=== PATIENT | male | born 1945 | race Hispanic/Latino ===

== ENCOUNTER 2016-11-04 13:36 | Inpatient (IN) | payer MEDICARE ==
[2016-11-04] MEDS ORDERED: DUONEB 0.5 MG-3 MG/3 ML SOLN IH ONE ×2 (13:44→13:52)
--- NOTE | 2016-11-04 14:32 | Emergency Department Report ---
HPI - General Chief Complaint: Dyspnea/Respdistress Time Seen by Provider: 11/04/16 14:04 - HPI HPI: His is a 71-year-old male who presents to the emergency department from home with complaint of shortness of breath, productive cough, wheezing and some discomfort in the chest/rib cage. He says that it is been going on even before he was admitted here on October 20 and that they "did not fix me." He is on 4 L nasal cannula at home. His primary care doctor is Dr. Garcia, his director of outpatient services is Dr. Lundberg and he goes to [facility]. He has been using his inhaler and nebulized breathing machine without any relief. He denies any fever, nausea, vomiting or diaphoresis. He has a history of CHF, COPD, borderline diabetes and a history of coronary artery disease with a triple bypass. Patient was found to have a room air oxygen saturation of 80% through triage. ED Past Medical Hx - Past Medical History Previous Medical History?: Yes Hx Hypertension: Yes Hx Heart Attack/AMI: Yes (2005, GABGx3) Hx Congestive Heart Failure: Yes Hx Diabetes: Yes (NO LONGER TAKEN MEDICATION) Hx COPD: Yes Additional medical history: CAD - Surgical History Hx Open Heart Surgery: Yes (november 2004) - Social History Smoking Status: Never Smoker Substance Use Type: None - Medications Home Medications: Home Medications Medication Instructions Recorded Confirmed Last Taken Type Home Oxygen @ 3lpm 2.5 l INHALATION DAILY 08/28/14 11/04/16 1 Day Ago History 1 HYDROcodone/APAP 5-325 [[place] 2 each PO Q6H PRN #45 tablet 09/08/14 11/04/16 1 Day Ago Rx 5-325 mg TAB] 2 Combivent Inhaler 2 puff INHALATION PRN 12/13/15 11/04/16 1 Day Ago History 2 Morphine TAB 30 mg PO PRN 12/13/15 11/04/16 1 Day Ago History 30 ALBUTEROL NEB's [Proventil] 2.5 mg IH TID PRN 10/20/16 11/04/16 1 Day Ago History 2.5 Aspirin EC [Aspirin Enteric Coated 81 mg PO QDAY 10/20/16 11/04/16 1 Day Ago History TAB] 81 Gabapentin [Neurontin] 300 mg PO BID 10/20/16 11/04/16 1 Day Ago History 300 Levothyroxine [Synthroid] 100 mcg PO QAM 10/20/16 11/04/16 1 Day Ago History Lisinopril [Zestril] 5 mg PO QDAY 10/20/16 11/04/16 1 Day Ago History 5 Tamsulosin [Flomax] 0.4 mg PO QDAY 10/20/16 11/04/16 1 Day Ago History Tiotropium Br/Olodaterol HCl 4 gm IH DAILY 10/20/16 11/04/16 1 Day Ago History [Stiolto Respimat Inhal [place]] 2.5-2.5 Zolpidem [Ambien] 10 mg PO QHS 10/20/16 11/04/16 1 Day Ago History 10 Azithromycin [Zithromax TAB] 250 mg PO QDAY #6 tablet 10/22/16 11/04/16 Unknown Rx Prednisone [predniSONE 10 mg 10 mg PO .TAPER #1 tab.ds.pk 10/22/16 11/04/16 Unknown Rx (6-Day Pack, 21 Tabs)] ED Review of Systems ROS: Stated complaint: RIB PAIN Other details as noted in HPI Comment: All other systems reviewed and negative Constitutional: denies: chills, fever Eyes: denies: eye pain, eye discharge, vision change ENT: denies: ear pain, throat pain Respiratory: cough, shortness of breath, wheezing Cardiovascular: chest pain. denies: palpitations Gastrointestinal: denies: abdominal pain, nausea Genitourinary: denies: urgency, dysuria Musculoskeletal: denies: back pain, joint swelling, arthralgia Skin: denies: rash, lesions Neurological: denies: headache, weakness, paresthesias Physical Exam - Physical Exam Vital Signs: Vital Signs 11/04/16 11/04/16 11/04/16 13:38 13:41 13:43 Pulse Rate 80 73 Respiratory 23 29 H 29 H Rate Blood Pressure 121/60 121/60 O2 Sat by Pulse 80 L 100 99 Oximetry 11/04/16 11/04/16 13:45 13:54 Pulse Rate 75 Respiratory 23 23 Rate Blood Pressure 125/56 O2 Sat by Pulse 94 94 Oximetry Physical Exam: GENERAL: The patient is well-developed well-nourished. HEENT: Normocephalic. Atraumatic. Extraocular motions are intact. Patient has moist mucous membranes. Pupils equal reactive to light. NECK: Supple. Trachea is midline. CHEST/LUNGS: Significant rales heard both with and without auscultation. Mild wheezing throughout the chest. There is tachypnea. No accessory muscle use. There is no respiratory distress noted. HEART/CARDIOVASCULAR: Regular. There is no tachycardia. There is no gallop rub or murmur. ABDOMEN: Abdomen is soft, nontender. Patient has normal bowel sounds. There is no abdominal distention. SKIN: Skin is warm and dry. NEURO: The patient is awake, alert. The patient is cooperative. The patient has no focal neurologic deficits. The patient has normal speech. MUSCULOSKELETAL: There is no tenderness or deformity. There is no limitation range of motion. There is no evidence of acute injury. ED Course Vital Signs 11/04/16 11/04/16 11/04/16 13:38 13:41 13:43 Pulse Rate 80 73 Respiratory 23 29 H 29 H Rate Blood Pressure 121/60 121/60 O2 Sat by Pulse 80 L 100 99 Oximetry 11/04/16 11/04/16 13:45 13:54 Pulse Rate 75 Respiratory 23 23 Rate Blood Pressure 125/56 O2 Sat by Pulse 94 94 Oximetry - ABG Interpretation Ph: 7.428 PCO2: 43 PO2: 97 Bicarbonate: 28 Additional Comments: This ABG appears normal, however patient had visible hypoxia at 80% and this ABG was done after multiple hours on supplemental oxygen. - Pulse Oximetry Interpretation Digit-Finger Initial Pulse Oximetry Readin O2 Sat by Pulse Oximetry: 80 Actions Taken: other (placed on 3 L nasal cannula) ED Medical Decision Making - Lab Data Result diagrams: 11/04/16 14:09 11/04/16 14:09 - EKG Data -: EKG Interpreted by Me EKG shows normal: sinus rhythm (PVCs), axis, intervals, QRS complexes, ST-T waves (unspecific ST-T changes) Rate: normal - EKG Data When compared to previous EKG there are: previous EKG unavailable Interpretation: other (sinus rhythm with PVCs, nonspecific ST-T wave changes) - Radiology Data Radiology results: report reviewed, image reviewed interpreted by me: Chest x-ray shows some pulmonary vascular congestion but no obvious pleural effusions, no pneumonia and no pneumothorax. VQ scan of the chest is negative for pulmonary embolism - Medical Decision Making 71-year-old male returns to the emergency department with continued shortness of breath, chest discomfort and basically the same symptoms that caused him to have admission at the beginning of October. Patient presents with hypoxia with a pulse ox of 80%. He was placed on nasal cannula and his pulse ox came up to a more reasonable levels. Patient has significant coarse breath sounds heard both with and without auscultation. He was given 2 different rounds of breathing treatments, steroids, magnesium and still is having these breath sounds and tachypnea. He has an elevated BNP level of about 1000 but there is not significant pleural effusion seen on chest x-ray. D-dimer was about 1000 as well so a VQ scan was done, since the CT angiography machine was down, and the VQ scan was resulted as negative for PE. Patient will be admitted to the hospital for further evaluation, serial steroids and breathing treatments and has been accepted for admission by the hospitalist Dr light. Critical care attestation.: If time is entered above; I have spent that time in minutes in the direct care of this critically ill patient, excluding procedure time. ED Disposition Clinical Impression: COPD exacerbation, Bronchospasm, Hypoxia COPD (chronic obstructive pulmonary disease) Qualifiers: COPD type: unspecified COPD Qualified Code(s): J44.9 - Chronic obstructive pulmonary disease, unspecified Dyspnea Qualifiers: Dyspnea type: shortness of breath Qualified Code(s): R06.02 - Shortness of breath CHF (congestive heart failure) Qualifiers: Congestive heart failure type: unspecified congestive heart failure type Congestive heart failure chronicity: acute on chronic Qualified Code(s): I50.9 - Heart failure, unspecified Disposition: OP ADMITTED IP TO THIS HOSP Is pt being admited?: Yes Condition: Fair Instructions: Chronic Obstructive Pulmonary Disease (ED) Referrals: PRIMARY CARE, [Primary Care Provider] - 3-5 Days Time of Disposition: 17:06
[2016-11-04 14:33] LABS: Basophils % (Auto) 0.4 % (0.0-1.8); Eosinophils % (Auto) 0.1 % (0.0-4.3); Hematocrit 27.8 % (35.5-45.6); Hemoglobin 8.6 gm/dl (11.8-15.2); Mean Corpuscular HGB Conc 31 % (32-34); Mean Corpuscular Volume 80 fl (84-94); Platelet Count 279 K/mm3 (140-440); Red Blood Count 3.48 M/mm3 (3.65-5.03); Red Cell Distribution Width 17.9 % (13.2-15.2); White Blood Count 7.1 K/mm3 (4.5-11.0)
--- NOTE | 2016-11-04 14:46 | XRay Report ---
Single view chest: Compared to 10/20/16. History: Shortness of breath. Findings: Borderline cardiomegaly. Trachea appears to be slightly to the right of the midline without interval change. Pulmonary venous congestion with interstitial infiltrates bilaterally predominantly lower lobes without interval change. Impression: No significant interval change.
[2016-11-04 14:47] LABS: Mean Corpuscular Hemoglobin 25 pg (28-32)
[2016-11-04 14:52] LABS: Anion Gap 21 mmol/L; Blood Urea Nitrogen 17 mg/dL (9-20); Calcium 8.6 mg/dL (8.4-10.2); Carbon Dioxide 25 mmol/L (22-30); Chloride 97.1 mmol/L (98-107); Glucose 127 mg/dL (75-100); Potassium 4.4 mmol/L (3.6-5.0); Sodium 139 mmol/L (137-145)
[2016-11-04] MEDS ORDERED: MAGNESIUM SULFATE 2GM/50ML 2 GM/50 ML BAG IV ONE (14:52)
--- NOTE | 2016-11-04 16:14 | Nuclear Medicine Report ---
PERFUSION LUNG SCAN: History: Shortness of breath elevated d-dimer. Findings: After injection of Technetium 99m macroaggregated albumin gamma camera imaging of the lungs in multiple projections demonstrates normal pulmonary contours with a homogeneous distribution of activity. No focal areas of perfusion deficiency are identified. IMPRESSION: Normal study.
[2016-11-04] MEDS ORDERED: PROVENTIL IH ONE (16:24)
[2016-11-04 16:37] LABS: ISTAT Base Excess 4; ISTAT HCO3 28.5; ISTAT PCO2 43.2 (35-45); ISTAT PH 7.428 (7.35-7.45); ISTAT PO2 97 (80-105); ISTAT SO2 98; ISTAT TCO2 30
--- NOTE | 2016-11-04 16:50 | Admit Criteria Form ---
Admission Criteria Documentation: COPD Clinical Indications for Admission to Inpatient Care (Place 'X' for any and all applicable criteria): Admission is indicated for ANY ONE of the following (1)(2)(3): [ ]I. Acute exacerbation by high-risk comorbidity (e.g., pneumonia, dysrhythmia, heart failure, pleural effusion, pneumothorax) or severe underlying COPD (e.g., steroid dependent) [X ]II. Inpatient admission required rather than observation care (see Chronic Obstructive Pulmonary Disease: Observation Care) because of ANY ONE of the following: [X ]a) New or pre-existing signs or symptoms of COPD (eg, dyspnea or Tachypnea at rest or with minimal activity) that persist despite outpatient and observation care treatment [ ]b) New-onset hypoxemia (room air SaO2 less than 90%, PO2 less than 60 mm Hg (8.0 kPa)) that persists despite outpatient and observation care treatment [ ]c) Worsening of pre-existing hypoxemia (eg, new or increased requirement for supplemental oxygen to maintain oxygenation at baseline level) that persists despite outpatient and observation care treatment, with oxygen treatment needs performable only in acute inpatient setting [ ]d) Hypercarbia (PCO2 greater than 40 mm Hg (5.3 kPa))-induced respiratory acidosis (pH less than 7.35) that persists despite outpatient and observation care treatment [ ]e) Supplemental oxygen or respiratory treatments for over 24 hours that are performable only in acute inpatient setting [ ]f) Chest tube placement with active evacuation (e.g., suction, drainage) (5) [ ]g) Other condition, treatment or monitoring requiring inpatient admission [ ]III. Planned invasive surgical or diagnostic procedures requiring acute- care hospitalization [ X]IV. Acute respiratory failure (e.g., uncompensated hypercarbia, severe hypoxemia) [ ]V. Severe comorbid condition (e.g., severe steroid myopathy, acute vertebral fracture) that has acutely worsened pulmonary function [ ]. Confusion state, lethargy, obtundation, stupor or coma Extended stay beyond goal length of stay may be needed for (31)(32): [ ]a ) Respiratory Failure. [ ]b) Severe or persisting hypoxemia or hypercarbia [ ]c) Severe or persistent dyspnea [ ]d) Comorbidities (e.g. chronic heart failure, atrial fibrillation with rapid response, pneumonia) [ ]e) Malnutrition The original [facility] content created by [facility] has been revised. The portions of the content which have been revised are identified through the use of italic text or in bold, and [facility] has neither reviewed nor approved the modified material. All other unmodified content is copyright [facility]. Please see references footnoted in the original [facility] edition 2016 Admission Criteria Met: Yes
[2016-11-04] MEDS ORDERED: PERCOCET 5/325 PO ONE (17:34)
[2016-11-04] MEDS ORDERED: PERCOCET 5/325 ONE (17:35)
[2016-11-04] MEDS ORDERED: TORADOL IV ONE (19:23)
[2016-11-04] MEDS ORDERED: MORPHINE IV ONE (19:23)
[2016-11-04] MEDS ORDERED: MORPHINE 30 MG PO PRN (19:28)
[2016-11-04] MEDS ORDERED: PROVENTIL IH PRN ×2 (19:28→20:06)
[2016-11-04] MEDS ORDERED: COMBIVENT INHALATION SCH (19:30)
[2016-11-04] MEDS ORDERED: LEVAQUIN 750MG/150ML 750 MG/150 ML BAG IV SCH (20:00)
--- NOTE | 2016-11-04 20:05 | History and Physical Report ---
History of Present Illness Date of examination: 11/04/16 Date of admission: 11/04/16 17:06 Chief complaint: Rib cage pain, cough History of present illness: 71-year-old male with medical history significant for COPD, [place] status post CABG, CHF presented to the emergency department complaining of rib cage pain, cough productive of greenish sputum, wheezing, generalized pain. Patient states he was admitted on October 20 and was discharged but he said his problem is not fixed. Patient was sent on 4 L of home oxygen. Patient's main question is pain medication. The patient can maintain his oxygen saturation was 80% on room air. The emergency department chest x-ray was done and showed pulmonary congestion and interstitial infiltrates. REVIEW OF SYSTEMS: GENERAL: no weight change, no fatigue, no fever HEAD: no head ache EYES: no blurry vision, no acute visual loss EARS: no hearing loss, no discharge, no earache NOSE: no stuffiness, no sneezing, no discharge MOUTH, THROAT AND NECK: no bleeding gums, no sore throat, no swollen neck CARDIAC: no palpitations, no dyspnea on exertion, no orthopnea, no PND, no edema , no chest pain RESPIRATORY: + shortness of breath, no wheeze, +_cough, + sputum, no hemoptysis , no asthma GI: no decreased appetite, no nausea, no vomiting, no dysphagia, no diarrhea, no constipation, no abdominal pain URINARY: no change in frequency, no urgency, no polyuria, no hematuria, no incontinence MUSCULOSKELETAL: no muscle weakness, + pain, no joint stiffness NEUROLOGIC: no loss of sensation/numbness, no tingling, no tremors, no weakness/ paralysis HEMATOLOGIC: no anemia, no easy bruising SKIN: no rashes ENDOCRINE: no heat/cold intolerance, no polyuria, no polydipsia, no thyroid problems, no diabetes PSYCHIATRIC: no anxiety, no depression, no suicidal ideations Past History Past Medical History: CAD, COPD, hypertension Past Surgical History: CABG Social history: full code. denies: smoking, alcohol abuse, prescription drug abuse, IV drug use Family history: no significant family history Medications and Allergies Allergies Allergy/AdvReac Type Severity Reaction Status Date / Time Cephalosporins Allergy Anaphylaxis Verified 08/28/14 14:56 Penicillins Allergy Unknown Verified 10/20/16 16:37 Home Medications Medication Instructions Recorded Confirmed Last Taken Type Home Oxygen @ 3lpm 2.5 l INHALATION DAILY 08/28/14 11/04/16 1 Day Ago History 1 HYDROcodone/APAP 5-325 [[place] 2 each PO Q6H PRN #45 tablet 09/08/14 11/04/16 1 Day Ago Rx 5-325 mg TAB] 2 Combivent Inhaler 2 puff INHALATION PRN 12/13/15 11/04/16 1 Day Ago History 2 Morphine TAB 30 mg PO PRN 12/13/15 11/04/16 1 Day Ago History 30 ALBUTEROL NEB's [Proventil] 2.5 mg IH TID PRN 10/20/16 11/04/16 1 Day Ago History 2.5 Aspirin EC [Aspirin Enteric Coated 81 mg PO QDAY 10/20/16 11/04/16 1 Day Ago History TAB] 81 Gabapentin [Neurontin] 300 mg PO BID 10/20/16 11/04/16 1 Day Ago History 300 Levothyroxine [Synthroid] 100 mcg PO QAM 10/20/16 11/04/16 1 Day Ago History Lisinopril [Zestril] 5 mg PO QDAY 10/20/16 11/04/16 1 Day Ago History 5 Tamsulosin [Flomax] 0.4 mg PO QDAY 10/20/16 11/04/16 1 Day Ago History Tiotropium Br/Olodaterol HCl 4 gm IH DAILY 10/20/16 11/04/16 1 Day Ago History [Stiolto Respimat Inhal [place]] 2.5-2.5 Zolpidem [Ambien] 10 mg PO QHS 10/20/16 11/04/16 1 Day Ago History 10 Azithromycin [Zithromax TAB] 250 mg PO QDAY #6 tablet 10/22/16 11/04/16 Unknown Rx Prednisone [predniSONE 10 mg 10 mg PO .TAPER #1 tab.ds.pk 10/22/16 11/04/16 Unknown Rx (6-Day Pack, 21 Tabs)] Active Meds: Active Medications Acetaminophen/Hydrocodone Bitart ([place] 5/325) 2 each PO Q6H PRN PRN Reason: Moderate Pain Albuterol (Proventil) 2.5 mg IH TIDRT PRN PRN Reason: Wheezing Aspirin (Halfprin Ec) 81 mg PO QDAY LUIS CARLOS Gabapentin (Neurontin) 300 mg PO BID LUIS CARLOS Heparin Sodium (Porcine) (Heparin) 5,000 unit SUB-Q Q8HR [facility] Levofloxacin/Dextrose (Levaquin 750mg/150ml) 750 mg in 150 mls @ 100 mls/hr IV Q24H LUIS CARLOS PRN Reason: Protocol Levothyroxine Sodium (Synthroid) 100 mcg PO DAILY@0600 [facility] Lisinopril (Zestril) 5 mg PO QDAY [facility] Methylprednisolone Sodium Succinate (Solu-Medrol) 80 mg IV Q8HR [facility] Miscellaneous Medication (Combivent Inhaler) 2 puff INHALATION PRN [facility] Miscellaneous Medication (Morphine Tab) 30 mg PO BID PRN PRN Reason: Pain Miscellaneous Medication (Tiotropium Br/Olodaterol Hcl [Stiolto Respimat Inhal [place]]) 4 gm IH DAILY [facility] Tamsulosin HCl (Flomax) 0.4 mg PO QHS [facility]IS CARLOS Zolpidem Tartrate (Ambien) 10 mg PO QHS [facility] Exam - Physical Exam Narrative exam: Not in cardiopulmonary distress. The patient appeared well nourished and normally developed. Vital signs as documented. Head exam is unremarkable. No scleral icterus . Neck is without jugular venous distension, thyromegaly, or carotid bruits. Lungs wheezing and ceptations all over the chest. Cardiac exam reveals regular rate and Rhythm. First and second heart sounds normal. No murmurs, rubs or gallops. Abdominal exam reveals normal bowel sounds, no masses, no organomegaly and no aortic enlargement. Extremities are nonedematous and both femoral and pedal pulses are normal. [place]: Alert and oriented 3. No focal weakness. - Constitutional Vitals: Temp Pulse Resp BP Pulse Ox 75 21 141/72 89 11/04/16 19:31 11/04/16 19:31 11/04/16 19:31 11/04/16 19:31 Results - Labs CBC & Chem 7: 11/04/16 14:09 11/04/16 14:09 Labs: Laboratory Last Values WBC 7.1 K/mm3 (4.5-11.0) 11/04/16 14:09 RBC 3.48 M/mm3 (3.65-5.03) L 11/04/16 14:09 Hgb 8.6 gm/dl (11.8-15.2) L 11/04/16 14:09 Hct 27.8 % (35.5-45.6) L 11/04/16 14:09 MCV 80 fl (84-94) L 11/04/16 14:09 MCH 25 pg (28-32) L 11/04/16 14:09 MCHC 31 % (32-34) L 11/04/16 14:09 RDW 17.9 % (13.2-15.2) H 11/04/16 14:09 Plt Count 279 K/mm3 (140-440) 11/04/16 14:09 Lymph % (Auto) 14.6 % (13.4-35.0) 11/04/16 14:09 [place] % (Auto) 10.2 % (0.0-7.3) H 11/04/16 14:09 Eos % (Auto) 0.1 % (0.0-4.3) 11/04/16 14:09 Baso % (Auto) 0.4 % (0.0-1.8) 11/04/16 14:09 Lymph # 1.0 K/mm3 (1.2-5.4) L 11/04/16 14:09 [place] # 0.7 K/mm3 (0.0-0.8) 11/04/16 14:09 Eos # 0.0 K/mm3 (0.0-0.4) 11/04/16 14:09 Baso # 0.0 K/mm3 (0.0-0.1) 11/04/16 14:09 Seg Neutrophils % 74.7 % (40.0-70.0) H 11/04/16 14:09 Seg Neutrophils # 5.3 K/mm3 (1.8-7.7) 11/04/16 14:09 D-Dimer 1071.24 ng/mlDDU (0-234) H 11/04/16 14:09 POC ABG pH 7.428 (7.35-7.45) 11/04/16 16:27 POC ABG pCO2 43.2 (35-45) 11/04/16 16:27 POC ABG pO2 97 (80-105) 11/04/16 16:27 POC ABG HCO3 28.5 11/04/16 16:27 POC ABG Total CO2 30 11/04/16 16:27 POC ABG O2 Sat 98 11/04/16 16:27 POC ABG Base Excess 4 11/04/16 16:27 FiO2 40 % 11/04/16 16:27 Sodium 139 mmol/L (137-145) 11/04/16 14:09 Potassium 4.4 mmol/L (3.6-5.0) 11/04/16 14:09 Chloride 97.1 mmol/L (98-107) L 11/04/16 14:09 Carbon Dioxide 25 mmol/L (22-30) 11/04/16 14:09 Anion Gap 21 mmol/L 11/04/16 14:09 BUN 17 mg/dL (9-20) 11/04/16 14:09 Creatinine 1.0 mg/dL (0.8-1.5) 11/04/16 14:09 Estimated GFR > 60 ml/min 11/04/16 14:09 BUN/Creatinine Ratio 17.00 % 11/04/16 14:09 Glucose 127 mg/dL (75-100) H 11/04/16 14:09 Calcium 8.6 mg/dL (8.4-10.2) 11/04/16 14:09 Troponin T < 0.010 ng/mL (0.00-0.029) 11/04/16 14:09 NT-Pro-B Natriuret Pep 1670 pg/mL (0-900) H 11/04/16 14:09 Assessment and Plan Assessment and plan: COPD exacerbation Pneumonia CAD Hypertension Hypothyroidism Admit to medical floor IV Solu-Medrol, nebulizer treatment, IV Levaquin Sliding scale insulin Continue appropriate medications DT prophylaxis Advance Directives: Yes VTE prophylaxis?: Chemical Plan of care discussed with patient/family: Yes
[2016-11-04] MEDS ORDERED: D50W (25GM) IV PRN (20:09)
[2016-11-04] MEDS: HEPARIN SUB-Q SCH (22:19)
[2016-11-04] MEDS: NEURONTIN PO SCH (22:19)
[2016-11-04] MEDS: FLOMAX PO SCH (22:30)
[2016-11-04] MEDS: AMBIEN PO SCH (22:30)
[2016-11-04] MEDS: NOVOLOG SUB-Q SCH (23:00)
[2016-11-05] MEDS ORDERED: DUONEB 0.5 MG-3 MG/3 ML SOLN IH SCH (02:00)
[2016-11-05] MEDS: HEPARIN SUB-Q SCH ×3 (05:56→22:11)
[2016-11-05] MEDS: SYNTHROID PO SCH (05:56)
[2016-11-05] MEDS: DUONEB 0.5 MG-3 MG/3 ML SOLN IH SCH ×3 (09:04→20:10)
--- NOTE | 2016-11-05 09:35 | Progress Note ---
Assessment and Plan Assessment and plan: Acute hypoxic respiratory failure. Patient was noted to have saturations in the 80s upon admission to the emergency room. Continue O2 for supportive care. Acute COPD exacerbation. Continue COPD pathway. IV steroids, nebulizer treatment and IV antibiotics. Community-acquired pneumonia. Continue pneumonia pathway and antibiotics. Follow-up chest x-ray. Acute CHF exacerbation. Etiology of systolic versus diastolic unknown. Check echocardiogram. Patient was mildly elevated BNP on admission. Continue lisinopril. Add low-dose Lasix daily. Consider cardiology consultation. Hypertension. Resume antihypertensives medications. Hypothyroidism. Check TSH. Continue medications. Coronary artery disease. History Interval history: 71-year-old male with medical history significant for COPD, [place] status post CABG and CHF admitted for COPD exac and acute hypoxic respiratory failure. Patient denies any chest pain or shortness of breath currently. Hospitalist Physical - Constitutional Vitals: Temp Pulse Resp BP Pulse Ox 97.8 F 62 20 130/57 99 11/05/16 05:00 11/05/16 09:15 11/05/16 09:15 11/05/16 05:00 11/05/16 05:00 General appearance: Present: no acute distress, well-nourished - EENT Eyes: Present: PERRL, EOM intact ENT: hearing intact, clear oral mucosa, dentition normal - Neck Neck: Present: supple, normal ROM - Respiratory Respiratory effort: normal Respiratory: bilateral: diminished, wheezing - Cardiovascular Rhythm: regular Heart Sounds: Present: S1 & S2. Absent: gallop, rub - Extremities Extremities: no ischemia, No edema, Full ROM - Abdominal General gastrointestinal: soft, non-tender, non-distended, normal bowel sounds - Integumentary Integumentary: Present: clear, warm, dry - Neurologic Neurologic: CNII-XII intact, moves all extremities Results - Labs CBC & Chem 7: 11/04/16 14:09 11/04/16 14:09 Labs: Laboratory Last Values WBC 7.1 K/mm3 (4.5-11.0) 11/04/16 14:09 RBC 3.48 M/mm3 (3.65-5.03) L 11/04/16 14:09 Hgb 8.6 gm/dl (11.8-15.2) L 11/04/16 14:09 Hct 27.8 % (35.5-45.6) L 11/04/16 14:09 MCV 80 fl (84-94) L 11/04/16 14:09 MCH 25 pg (28-32) L 11/04/16 14:09 MCHC 31 % (32-34) L 11/04/16 14:09 RDW 17.9 % (13.2-15.2) H 11/04/16 14:09 Plt Count 279 K/mm3 (140-440) 11/04/16 14:09 Lymph % (Auto) 14.6 % (13.4-35.0) 11/04/16 14:09 [place] % (Auto) 10.2 % (0.0-7.3) H 11/04/16 14:09 Eos % (Auto) 0.1 % (0.0-4.3) 11/04/16 14:09 Baso % (Auto) 0.4 % (0.0-1.8) 11/04/16 14:09 Lymph # 1.0 K/mm3 (1.2-5.4) L 11/04/16 14:09 [place] # 0.7 K/mm3 (0.0-0.8) 11/04/16 14:09 Eos # 0.0 K/mm3 (0.0-0.4) 11/04/16 14:09 Baso # 0.0 K/mm3 (0.0-0.1) 11/04/16 14:09 Seg Neutrophils % 74.7 % (40.0-70.0) H 11/04/16 14:09 Seg Neutrophils # 5.3 K/mm3 (1.8-7.7) 11/04/16 14:09 D-Dimer 1071.24 ng/mlDDU (0-234) H 11/04/16 14:09 POC ABG pH 7.428 (7.35-7.45) 11/04/16 16:27 POC ABG pCO2 43.2 (35-45) 11/04/16 16:27 POC ABG pO2 97 (80-105) 11/04/16 16:27 POC ABG HCO3 28.5 11/04/16 16:27 POC ABG Total CO2 30 11/04/16 16:27 POC ABG O2 Sat 98 11/04/16 16:27 POC ABG Base Excess 4 11/04/16 16:27 FiO2 40 % 11/04/16 16:27 Sodium 139 mmol/L (137-145) 11/04/16 14:09 Potassium 4.4 mmol/L (3.6-5.0) 11/04/16 14:09 Chloride 97.1 mmol/L (98-107) L 11/04/16 14:09 Carbon Dioxide 25 mmol/L (22-30) 11/04/16 14:09 Anion Gap 21 mmol/L 11/04/16 14:09 BUN 17 mg/dL (9-20) 11/04/16 14:09 Creatinine 1.0 mg/dL (0.8-1.5) 11/04/16 14:09 Estimated GFR > 60 ml/min 11/04/16 14:09 BUN/Creatinine Ratio 17.00 % 11/04/16 14:09 Glucose 127 mg/dL (75-100) H 11/04/16 14:09 POC Glucose 153 (70-105) H 11/04/16 22:38 Calcium 8.6 mg/dL (8.4-10.2) 11/04/16 14:09 Troponin T < 0.010 ng/mL (0.00-0.029) 11/04/16 14:09 NT-Pro-B Natriuret Pep 1670 pg/mL (0-900) H 11/04/16 14:09
[2016-11-05] MEDS ORDERED: ZITHROMAX PO SCH (10:00)
[2016-11-05] MEDS ORDERED: NON-FORMULARY (Tiotropium Br/Olodaterol Hcl [Stiolto Respimat Inhal Spray] 4 GM) IH SCH (10:00)
[2016-11-05] MEDS: ZESTRIL PO SCH (10:01)
[2016-11-05] MEDS: HALFPRIN EC PO SCH (10:02)
[2016-11-05] MEDS: NEURONTIN PO SCH ×2 (10:02→22:11)
[2016-11-05] MEDS ORDERED: COREG PO SCH (11:00)
[2016-11-05] MEDS ORDERED: LASIX IV SCH (11:00)
[2016-11-05] MEDS: NORCO 5/325 PO PRN ×2 (11:10→18:38)
--- NOTE | 2016-11-05 12:50 | Consultation ---
History of Present Illness Consult date: 11/05/16 Requesting physician: ORLIN GARCIA Consult reason: congestive heart failure History of present illness: The pt is a 69-year-old pleasant white gentleman with a past medical history significant for hypertension, DM, known coronary artery disease history of CABG in the past with (2004), History of chronic heavy smoking in the past known to have COPD and chronic respiratory failure on home O2 (medical technologist prn is Dr. Rahman), PVD, asymptomatic sinus bradycardia. He is followed in our office by Dr. Alfaro. He presented with c/o left-sided rib pain, increased SOB, orthopnea and productive cough with green sputum x 4 weeks. He denies any chest pain, n/v , diaphoresis, dizziness, or syncope. He denies any recent fall or trauma to ribs. Admission CXR revealed pulmonary venous congestion with interstitial infiltrates bilaterally; pro-BNP 1670. DDimer was elevated; V/Q scan normal. His echocardiogram done in the office on 02/29/2016 revealed mild to moderate LVH , EF 50 - 55%, impaired relaxation, no pulmonary HTN. His Lexiscan stress thallium test done on 02/29/2016 revealed no evidence of ischemia. Past History Past Medical History: CAD, COPD, hypertension Past Surgical History: CABG Social history: full code. denies: smoking, alcohol abuse, prescription drug abuse, IV drug use Family history: no significant family history Medications and Allergies Allergies Allergy/AdvReac Type Severity Reaction Status Date / Time Cephalosporins Allergy Anaphylaxis Verified 08/28/14 14:56 Penicillins Allergy Unknown Verified 10/20/16 16:37 Home Medications Medication Instructions Recorded Confirmed Last Taken Type Home Oxygen @ 3lpm 2.5 l INHALATION DAILY 08/28/14 11/04/16 1 Day Ago History 1 HYDROcodone/APAP 5-325 [[place] 2 each PO Q6H PRN #45 tablet 09/08/14 11/04/16 1 Day Ago Rx 5-325 mg TAB] 2 Combivent Inhaler 2 puff INHALATION PRN 12/13/15 11/04/16 1 Day Ago History 2 Morphine TAB 30 mg PO PRN 12/13/15 11/04/16 1 Day Ago History 30 ALBUTEROL NEB's [Proventil] 2.5 mg IH TID PRN 10/20/16 11/04/16 1 Day Ago History 2.5 Aspirin EC [Aspirin Enteric Coated 81 mg PO QDAY 10/20/16 11/04/16 1 Day Ago History TAB] 81 Gabapentin [Neurontin] 300 mg PO BID 10/20/16 11/04/16 1 Day Ago History 300 Levothyroxine [Synthroid] 100 mcg PO QAM 10/20/16 11/04/16 1 Day Ago History Lisinopril [Zestril] 5 mg PO QDAY 10/20/16 11/04/16 1 Day Ago History 5 Tamsulosin [Flomax] 0.4 mg PO QDAY 10/20/16 11/04/16 1 Day Ago History Tiotropium Br/Olodaterol HCl 4 gm IH DAILY 10/20/16 11/04/16 1 Day Ago History [Stiolto Respimat Inhal [place]] 2.5-2.5 Zolpidem [Ambien] 10 mg PO QHS 10/20/16 11/04/16 1 Day Ago History 10 Azithromycin [Zithromax TAB] 250 mg PO QDAY #6 tablet 10/22/16 11/04/16 Unknown Rx Prednisone [predniSONE 10 mg 10 mg PO .TAPER #1 tab.ds.pk 10/22/16 11/04/16 Unknown Rx (6-Day Pack, 21 Tabs)] Active Meds: Active Medications Acetaminophen/Hydrocodone Bitart ([place] 5/325) 2 each PO Q6H PRN PRN Reason: Moderate Pain Last Admin: 11/05/16 11:10 Dose: 2 each Albuterol (Proventil) 2.5 mg IH Q3HRT PRN PRN Reason: Shortness Of Breath Albuterol/Ipratropium (Duoneb 0.5 Mg-3 Mg/3 Ml Soln) 1 ampul IH TIDRT [facility] Last Admin: 11/05/16 09:04 Dose: 1 ampul Aspirin (Halfprin Ec) 81 mg PO QDAY [facility] Last Admin: 11/05/16 10:02 Dose: 81 mg Carvedilol (Coreg) 3.125 mg PO BID [facility] Last Admin: 11/05/16 11:53 Dose: 3.125 mg Dextrose (D50w (25gm)) 50 ml IV PRN PRN PRN Reason: Hypoglycemia Furosemide (Lasix) 20 mg IV QDAY [facility] Last Admin: 11/05/16 11:53 Dose: 20 mg Gabapentin (Neurontin) 300 mg PO BID [facility] Last Admin: 11/05/16 10:02 Dose: 300 mg Heparin Sodium (Porcine) (Heparin) 5,000 unit SUB-Q Q8HR [facility] Last Admin: 11/05/16 05:56 Dose: 5,000 unit Levofloxacin/Dextrose (Levaquin 750mg/150ml) 750 mg in 150 mls @ 100 mls/hr IV Q24H [facility] PRN Reason: Protocol Last Admin: 11/04/16 20:18 Dose: 100 mls/hr Insulin Aspart (Novolog) 0 units SUB-Q QHS [facility] PRN Reason: Protocol Last Admin: 11/04/16 23:00 Dose: Not Given Levothyroxine Sodium (Synthroid) 100 mcg PO DAILY@0600 [facility] Last Admin: 11/05/16 05:56 Dose: 100 mcg Lisinopril (Zestril) 5 mg PO QDAY [facility] Last Admin: 11/05/16 10:01 Dose: 5 mg Methylprednisolone Sodium Succinate (Solu-Medrol) 80 mg IV Q8HR [facility] Last Admin: 11/05/16 05:56 Dose: 80 mg Miscellaneous Medication (Tiotropium Br/Olodaterol Hcl [Stiolto Respimat Inhal [place]]) 4 gm IH DAILY [facility] Morphine Sulfate (Morphine) 30 mg PO BID PRN PRN Reason: Pain , Severe (7-10) Tamsulosin HCl (Flomax) 0.4 mg PO QHS [facility] Last Admin: 11/04/16 22:30 Dose: 0.4 mg Zolpidem Tartrate (Ambien) 10 mg PO QHS [facility] Last Admin: 11/04/16 22:30 Dose: 10 mg Review of Systems Constitutional: fever, chills, no weight loss, no weight gain, no sweats Ears, nose, mouth and throat: no ear pain, no nose pain, no sinus pressure, no sinus pain Cardiovascular: orthopnea, shortness of breath, dyspnea on exertion, no chest pain, no palpitations, no rapid/irregular heart beat, no edema, no syncope, no lightheadedness, no leg edema Respiratory: cough with sputum, shortness of breath, dyspnea on exertion, congestion, wheezing, pain on inspiration (d/t left rib pain ) Gastrointestinal: no abdominal pain, no nausea, no vomiting, no diarrhea, no constipation, no change in bowel habits Genitourinary Male: no dysuria, no hematuria, no flank pain, no discharge, no urinary frequency, no urinary hesitancy Musculoskeletal: other (left rib pain ), no neck stiffness, no neck pain, no shooting arm pain, no arm numbness/tingling, no low back pain, no shooting leg pain, no leg numbness/tingling, no redness of joints Integumentary: no rash, no pruritis, no redness, no sores, no wounds Neurological: no paralysis, no weakness, no parathesias, no numbness, no tingling, no seizures, no syncope Psychiatric: no anxiety Endocrine: no cold intolerance, no heat intolerance Hematologic/Lymphatic: no easy bruising, no easy bleeding, no lymphadenopathy Allergic/Immunologic: no urticaria Physical Examination Vital Signs Resp Pulse Ox 23 80 L 11/04/16 13:38 11/04/16 13:38 General appearance: no acute distress HEENT: Positive: PERRL, Normocephaly, Mucus Membranes Moist Neck: Positive: neck supple, trachea midline Cardiac: Positive: Reg Rate and Rhythm, S1/S2 Lungs: Positive: Decreased Breath Sounds, Oxygen. Negative: Rales, Wheezes Neuro: Positive: Grossly Intact, Cranial Nerve 2-12 Intact Abdomen: Positive: Unremarkable, Soft, Active Bowel Sounds. Negative: Tender Skin: Positive: Clear. Negative: Rash, Wound Musculoskeletal: No Fluid Collection, No Pain, Normal Range of Motion Extremities: Present: upper extr. pulses, lower extr. pulses. Absent: edema Results 11/04/16 14:09 11/04/16 14:09 - Imaging and Cardiology Echo: report reviewed EKG: report reviewed, image reviewed EKG interpretations - Telemetry EKG Rhythm: Sinus Rhythm - EKG Sinus rhythms and dysrhythmias: sinus rhythm Assessment and Plan Assessment: COPD exacerbation / ? PNA Acute diastolic HF Acute on chronic respiratory failure Left rib pain Elevated DDimer - V/Q scan negative for PE. CAD, s/p CABG HTN DM PVD Anemia Plan: Obtain left rib XR. PRN analgesia per primary. No indication for any cardiac testing at this time as pt recently had echo and stress in our office in 02/2016. Increase IV lasix to 40mg daily. D/c coreg and resume home Toprol XL (beta selective), 50mg daily. Await pulmonary consultation. Assessment and plan reviewed with pt at bedside. The patient has been seen in conjunction with Dr. Mckinley who agrees with the assessment and plan of care.
[2016-11-05] MEDS: MORPHINE PO PRN (13:52)
--- NOTE | 2016-11-05 15:23 | XRay Report ---
LEFT RIBS, 3 VIEWS: History: Left rib pain. Routine views of the rib cage demonstrate normal mineralization with no significant contour abnormalities, fractures or destructive lesions. Osteopenia is noted. IMPRESSION: No left rib deformity is detected on x-ray. Osteopenia.
[2016-11-05] MEDS ORDERED: VANCOMYCIN/NS 1 GM/250 ML 1 GM/250 ML BAG IV ONE (16:47)
--- NOTE | 2016-11-05 16:53 | Consultation ---
History of Present Illness Consult date: 11/05/16 Requesting physician: ORLIN GARCIA Reason for consult: COPD, pneumonia History of present illness: 71 y/o male with known COPD on Stiolto and chronic respiratory failure on 3 liters at home admitted with worsening shortness of breath, rib pain and overall malaise. CXR shows this bilateral interstitial type patter with a dense right lower lobe infiltrate. Per patient has not felt well since the 8th of this month when he was first admitted and feels he was discharged to soon. Remainder of the review is positive for cough productive of thick green sputum that is sometimes liquid. No fever. No sick contacts. No recent travel and no changes in meds. Has not been in the hospital, outside of this month in the last 90 days. Has a large amount of specimen at the bedside to send to the lab. Past History Past Medical History: CAD, COPD, hypertension Past Surgical History: CABG Social history: full code. denies: smoking, alcohol abuse, prescription drug abuse, IV drug use Family history: no significant family history Medications and Allergies Allergies Allergy/AdvReac Type Severity Reaction Status Date / Time Cephalosporins Allergy Anaphylaxis Verified 08/28/14 14:56 Penicillins Allergy Unknown Verified 10/20/16 16:37 Home Medications Medication Instructions Recorded Confirmed Last Taken Type Home Oxygen @ 3lpm 2.5 l INHALATION DAILY 08/28/14 11/04/16 1 Day Ago History 1 HYDROcodone/APAP 5-325 [[place] 2 each PO Q6H PRN #45 tablet 09/08/14 11/04/16 1 Day Ago Rx 5-325 mg TAB] 2 Combivent Inhaler 2 puff INHALATION PRN 12/13/15 11/04/16 1 Day Ago History 2 Morphine TAB 30 mg PO PRN 12/13/15 11/04/16 1 Day Ago History 30 ALBUTEROL NEB's [Proventil] 2.5 mg IH TID PRN 10/20/16 11/04/16 1 Day Ago History 2.5 Aspirin EC [Aspirin Enteric Coated 81 mg PO QDAY 10/20/16 11/04/16 1 Day Ago History TAB] 81 Gabapentin [Neurontin] 300 mg PO BID 10/20/16 11/04/16 1 Day Ago History 300 Levothyroxine [Synthroid] 100 mcg PO QAM 10/20/16 11/04/16 1 Day Ago History Lisinopril [Zestril] 5 mg PO QDAY 10/20/16 11/04/16 1 Day Ago History 5 Tamsulosin [Flomax] 0.4 mg PO QDAY 10/20/16 11/04/16 1 Day Ago History Tiotropium Br/Olodaterol HCl 4 gm IH DAILY 10/20/16 11/04/16 1 Day Ago History [Stiolto Respimat Inhal [place]] 2.5-2.5 Zolpidem [Ambien] 10 mg PO QHS 10/20/16 11/04/16 1 Day Ago History 10 Azithromycin [Zithromax TAB] 250 mg PO QDAY #6 tablet 10/22/16 11/04/16 Unknown Rx Prednisone [predniSONE 10 mg 10 mg PO .TAPER #1 tab.ds.pk 10/22/16 11/04/16 Unknown Rx (6-Day Pack, 21 Tabs)] Active Meds: Active Medications Acetaminophen/Hydrocodone Bitart ([place] 5/325) 2 each PO Q6H PRN PRN Reason: Moderate Pain Last Admin: 11/05/16 11:10 Dose: 2 each Albuterol (Proventil) 2.5 mg IH Q3HRT PRN PRN Reason: Shortness Of Breath Albuterol/Ipratropium (Duoneb 0.5 Mg-3 Mg/3 Ml Soln) 1 ampul IH TIDRT [facility] Last Admin: 11/05/16 13:57 Dose: 1 ampul Aspirin (Halfprin Ec) 81 mg PO QDAY [facility] Last Admin: 11/05/16 10:02 Dose: 81 mg Dextrose (D50w (25gm)) 50 ml IV PRN PRN PRN Reason: Hypoglycemia Furosemide (Lasix) 40 mg IV QDAY [facility] Gabapentin (Neurontin) 300 mg PO BID [facility] Last Admin: 11/05/16 10:02 Dose: 300 mg Heparin Sodium (Porcine) (Heparin) 5,000 unit SUB-Q Q8HR [facility] Last Admin: 11/05/16 13:52 Dose: 5,000 unit Aztreonam (Azactam/Ns 1 Gm/50 Ml) 1 gm in 50 mls @ 50 mls/hr IV Q6HR [facility] PRN Reason: Protocol Vancomycin HCl (Vancomycin/Ns 1 Gm/250 Ml) 1 gm in 250 mls @ 167.007 mls/hr IV ONCE ONE PRN Reason: Protocol Stop: 11/05/16 18:16 Insulin Aspart (Novolog) 0 units SUB-Q QHS [facility] PRN Reason: Protocol Last Admin: 11/04/16 23:00 Dose: Not Given Levothyroxine Sodium (Synthroid) 100 mcg PO DAILY@0600 [facility] Last Admin: 11/05/16 05:56 Dose: 100 mcg Lisinopril (Zestril) 5 mg PO QDAY [facility] Last Admin: 11/05/16 10:01 Dose: 5 mg Methylprednisolone Sodium Succinate (Solu-Medrol) 80 mg IV Q8HR [facility] Last Admin: 11/05/16 13:51 Dose: 80 mg Metoprolol Succinate (Toprol Xl) 50 mg PO QDAY [facility] Morphine Sulfate (Morphine) 30 mg PO BID PRN PRN Reason: Pain , Severe (7-10) Last Admin: 11/05/16 13:52 Dose: 30 mg Tamsulosin HCl (Flomax) 0.4 mg PO QHS [facility] Last Admin: 11/04/16 22:30 Dose: 0.4 mg Vancomycin HCl (Vancomycin Pharmacy To Dose) 1 each IV PKCONSULT [facility] PRN Reason: Protocol Zolpidem Tartrate (Ambien) 10 mg PO QHS [facility] Last Admin: 11/04/16 22:30 Dose: 10 mg Review of Systems All systems: negative Physical Examination Vital signs: Vital Signs Resp Pulse Ox 23 80 L 11/04/16 13:38 11/04/16 13:38 General appearance: no acute distress, alert, other (angry as he is hungry) ENT: oropharynx moist Neck: supple, no lymphadenopathy Ascultation: Right: rhonchi (right base), Bilateral: diminished breath sounds Percussion: Bilateral: not dull Tactile fremitus: Bilateral: normal Cardiovascular: regular rate and rhythm Gastrointestinal: normoactive bowel sounds Integumentary: normal Extremities: edema normal mental status, non-focal exam Results - Laboratory Findings CBC and BMP: 11/04/16 14:09 11/04/16 14:09 ABG POC ABG pH 7.428 (7.35-7.45) 11/04/16 16:27 POC ABG pCO2 43.2 (35-45) 11/04/16 16:27 POC ABG pO2 97 (80-105) 11/04/16 16:27 POC ABG HCO3 28.5 11/04/16 16:27 POC ABG Total CO2 30 11/04/16 16:27 POC ABG O2 Sat 98 11/04/16 16:27 PT/INR, D-dimer D-Dimer 1071.24 ng/mlDDU (0-234) H 11/04/16 14:09 Abnormal lab findings: Abnormal Labs 11/04/16 22:38 POC Glucose 153 H - Diagnostic Findings Chest x-ray: image reviewed (as stated in HPI) Assessment and Plan 71 y/o male with known COPD and chronic respiratory failure admitted with abnormal CXR, rib pain and most likely pneumonia. 1. Sputum culture ordered as sample is at bedside 2. Changed abx therapy to aztreonam and Vanc given recent hospital stay, degree and duration of sputum. 3. Continue steroids at current dosing 4. If no improvement, will consider bronchoscopy
[2016-11-05] MEDS ORDERED: VANCOMYCIN PHARMACY TO DOSE IV SCH (17:00)
[2016-11-05] MEDS ORDERED: VANCOMYCIN 2,000 MG in NACL 0.9% 500 ML 500 ML IV ONE (20:00)
[2016-11-05] MEDS: AMBIEN PO SCH (22:11)
[2016-11-05] MEDS: FLOMAX PO SCH (22:11)
[2016-11-05] MEDS: NOVOLOG SUB-Q SCH (22:12)
[2016-11-05] MEDS: AZACTAM/NS 1 GM/50 ML 1 GM/50 ML VIAL IV SCH (23:14)
[2016-11-06] MEDS: NORCO 5/325 PO PRN ×4 (00:18→21:09)
[2016-11-06] MEDS: AZACTAM/NS 1 GM/50 ML 1 GM/50 ML VIAL IV SCH ×4 (00:19→17:52)
[2016-11-06] MEDS: MORPHINE PO PRN ×2 (04:13→17:53)
[2016-11-06] MEDS: SYNTHROID PO SCH (05:39)
[2016-11-06] MEDS: HEPARIN SUB-Q SCH ×3 (05:39→21:10)
[2016-11-06 06:25] LABS: Anion Gap 20 mmol/L; BUN/Creatinine Ratio 26.36; Blood Urea Nitrogen 29 mg/dL (9-20); Calcium 8.5 mg/dL (8.4-10.2); Carbon Dioxide 28 mmol/L (22-30); Chloride 96.8 mmol/L (98-107); Glucose 158 mg/dL (75-100); Potassium 4.7 mmol/L (3.6-5.0); Sodium 140 mmol/L (137-145)
[2016-11-06] MEDS: DUONEB 0.5 MG-3 MG/3 ML SOLN IH SCH ×4 (08:04→19:57)
--- NOTE | 2016-11-06 08:51 | XRay Report ---
AP CHEST History: Followup CHF, shortness of breath. Findings: Compared to 11/05/16. Heart size is at the upper limits of normal or slightly increased. There is normal pulmonary vascularity. Bronchovascular markings at the right apex and right lung base are slightly prominent. This probably represents chronic interstitial changes. If fever is present, pneumonia could be considered. Trace right pleural effusion is suspected. No pneumothorax. Impression: No convincing CHF on today's exam. Prominent pulmonary markings in the right lung which are probably chronic. Trace right pleural effusion.
[2016-11-06] MEDS: VANCOMYCIN 1,500 MG in NACL 0.9% 500 ML 500 ML IV SCH ×2 (09:03→20:25)
[2016-11-06] MEDS: HALFPRIN EC PO SCH (09:05)
[2016-11-06] MEDS: NEURONTIN PO SCH ×2 (09:05→21:09)
[2016-11-06] MEDS: TOPROL XL PO SCH (09:05)
[2016-11-06] MEDS: ZESTRIL PO SCH (09:06)
[2016-11-06] MEDS: LASIX IV SCH (09:08)
--- NOTE | 2016-11-06 09:21 | Progress Note ---
Assessment and Plan Assessment and plan: Acute hypoxic respiratory failure. Patient was noted to have saturations in the 80s upon admission to the emergency room. Continue O2 for supportive care. Acute COPD exacerbation. Continue COPD pathway. IV steroids, nebulizer treatment and IV antibiotics. Pulmonary following. Community-acquired pneumonia. Continue pneumonia pathway and antibiotics. Follow-up chest x-ray. If patient has no significant improvement, pulmonary to consider bronchoscopy. Acute diastolic heart failure exacerbation. Patient was mildly elevated BNP on admission. Continue Lasix 40 mg daily and Toprol 50 mg daily. Cardiology following. Hypertension. Continue antihypertensives medications. Hypothyroidism. Continue medications. Coronary artery disease. History Interval history: 71-year-old male with medical history significant for COPD, VT status post CABG and CHF admitted for COPD exac and acute hypoxic respiratory failure. Patient denies any chest pain or shortness of breath currently. Hospitalist Physical - Constitutional Vitals: Temp Pulse Resp BP Pulse Ox 97.6 F 63 18 136/67 93 11/06/16 05:01 11/06/16 09:06 11/06/16 05:01 11/06/16 09:06 11/06/16 05:01 General appearance: Present: no acute distress - EENT Eyes: Present: PERRL, EOM intact ENT: hearing intact, clear oral mucosa, dentition normal - Neck Neck: Present: supple, normal ROM - Respiratory Respiratory effort: normal Respiratory: bilateral: CTA - Cardiovascular Rhythm: regular Heart Sounds: Present: S1 & S2. Absent: gallop, rub - Extremities Extremities: no ischemia, No edema, Full ROM - Abdominal General gastrointestinal: soft, non-tender, non-distended, normal bowel sounds - Integumentary Integumentary: Present: clear, warm, dry - Neurologic Neurologic: CNII-XII intact, moves all extremities Results - Labs CBC & Chem 7: 11/04/16 14:09 11/06/16 04:55 Labs: Laboratory Last Values WBC 7.1 K/mm3 (4.5-11.0) 11/04/16 14:09 RBC 3.48 M/mm3 (3.65-5.03) L 11/04/16 14:09 Hgb 8.6 gm/dl (11.8-15.2) L 11/04/16 14:09 Hct 27.8 % (35.5-45.6) L 11/04/16 14:09 MCV 80 fl (84-94) L 11/04/16 14:09 MCH 25 pg (28-32) L 11/04/16 14:09 MCHC 31 % (32-34) L 11/04/16 14:09 RDW 17.9 % (13.2-15.2) H 11/04/16 14:09 Plt Count 279 K/mm3 (140-440) 11/04/16 14:09 Lymph % (Auto) 14.6 % (13.4-35.0) 11/04/16 14:09 [place] % (Auto) 10.2 % (0.0-7.3) H 11/04/16 14:09 Eos % (Auto) 0.1 % (0.0-4.3) 11/04/16 14:09 Baso % (Auto) 0.4 % (0.0-1.8) 11/04/16 14:09 Lymph # 1.0 K/mm3 (1.2-5.4) L 11/04/16 14:09 [place] # 0.7 K/mm3 (0.0-0.8) 11/04/16 14:09 Eos # 0.0 K/mm3 (0.0-0.4) 11/04/16 14:09 Baso # 0.0 K/mm3 (0.0-0.1) 11/04/16 14:09 Seg Neutrophils % 74.7 % (40.0-70.0) H 11/04/16 14:09 Seg Neutrophils # 5.3 K/mm3 (1.8-7.7) 11/04/16 14:09 D-Dimer 1071.24 ng/mlDDU (0-234) H 11/04/16 14:09 POC ABG pH 7.428 (7.35-7.45) 11/04/16 16:27 POC ABG pCO2 43.2 (35-45) 11/04/16 16:27 POC ABG pO2 97 (80-105) 11/04/16 16:27 POC ABG HCO3 28.5 11/04/16 16:27 POC ABG Total CO2 30 11/04/16 16:27 POC ABG O2 Sat 98 11/04/16 16:27 POC ABG Base Excess 4 11/04/16 16:27 FiO2 40 % 11/04/16 16:27 Sodium 140 mmol/L (137-145) 11/06/16 04:55 Potassium 4.7 mmol/L (3.6-5.0) 11/06/16 04:55 Chloride 96.8 mmol/L (98-107) L 11/06/16 04:55 Carbon Dioxide 28 mmol/L (22-30) 11/06/16 04:55 Anion Gap 20 mmol/L 11/06/16 04:55 BUN 29 mg/dL (9-20) H 11/06/16 04:55 Creatinine 1.1 mg/dL (0.8-1.5) 11/06/16 04:55 Estimated GFR > 60 ml/min 11/06/16 04:55 BUN/Creatinine Ratio 26.36 % 11/06/16 04:55 Glucose 158 mg/dL (75-100) H 11/06/16 04:55 POC Glucose 153 (70-105) H 11/04/16 22:38 Calcium 8.5 mg/dL (8.4-10.2) 11/06/16 04:55 Troponin T < 0.010 ng/mL (0.00-0.029) 11/04/16 14:09 NT-Pro-B Natriuret Pep 1670 pg/mL (0-900) H 11/04/16 14:09
--- NOTE | 2016-11-06 09:47 | Progress Note ---
Assessment and Plan Assessment: PNA Acute diastolic HF Acute on chronic respiratory failure COPD Left rib pain - left rib XR with NAF. Elevated DDimer - V/Q scan negative for PE. CAD, s/p CABG HTN DM PVD Anemia Plan: No indication for any cardiac testing at this time as pt recently had echo and stress in our office in 02/2016. Cont present management. Assessment and plan reviewed with pt at bedside. The patient has been seen in conjunction with Dr. Mckinley who agrees with the assessment and plan of care. Subjective Date of service: 11/06/16 Principal diagnosis: PNA; DHF Interval history: Pt resting in bed, appears more comfortable today than yesterday. States left rib pain is improving. SOB improving. VSS. Objective Last Vital Signs Temp 98.5 F 11/06/16 09:42 Pulse 63 11/06/16 09:42 Resp 18 11/06/16 09:42 BP 136/67 11/06/16 09:42 Pulse Ox 95 11/06/16 09:42 - Physical Examination General: No Apparent Distress HEENT: Positive: PERRL, Normocephaly, Mucus Membranes Moist Neck: Positive: neck supple, trachea midline Cardiac: Positive: Reg Rate and Rhythm, S1/S2 Lungs: Positive: Rhonchi, Oxygen Neuro: Positive: Grossly Intact, Cranial Nerve 2-12 Intact Abdomen: Positive: Unremarkable, Soft, Active Bowel Sounds. Negative: Tender Skin: Positive: Clear. Negative: Rash, Wound Musculoskeletal: No Fluid Collection, No Pain, Normal Range of Motion Extremities: Present: upper extr. pulses, lower extr. pulses. Absent: edema - Labs and Meds Comprehensive Metabolic Panel 11/06/16 Range/Units 04:55 Sodium 140 (137-145) mmol/L Potassium 4.7 (3.6-5.0) mmol/L Chloride 96.8 L (98-107) mmol/L Carbon Dioxide 28 (22-30) mmol/L BUN 29 H (9-20) mg/dL Creatinine 1.1 (0.8-1.5) mg/dL Glucose 158 H (75-100) mg/dL Calcium 8.5 (8.4-10.2) mg/dL - Imaging and Cardiology EKG: report reviewed, image reviewed Echo: report reviewed - Telemetry EKG Rhythm: Sinus Rhythm - EKG Sinus rhythms and dysrhythmias: sinus rhythm
--- NOTE | 2016-11-06 15:49 | Progress Note ---
Assessment and Plan 71 y/o male with known COPD and chronic respiratory failure admitted with abnormal CXR, rib pain and most likely pneumonia. 1. Gram stain positive, await speciation 2. Changed abx therapy to aztreonam and Vanc given recent hospital stay, degree and duration of sputum. Continue those for now. 3. Continue steroids at current dosing 4. Hold on bronchoscopy Subjective Date of service: 11/06/16 Principal diagnosis: PNA; DHF Interval history: patient down to nasal cannula. Appears comfortable but states that he is in pain. Relieved when he leans forward. It is a banding type pain. No rash is visible on the chest or back. No wheezing. Not tender to touch Objective Vital Signs - 12hr 11/06/16 11/06/16 11/06/16 05:01 09:05 09:06 Temperature 97.6 F Pulse Rate 63 63 Pulse Rate [ Left Radial] Pulse Rate [ 64 Right Radial] Respiratory 18 Rate Blood Pressure 136/67 136/67 Blood Pressure [Left Arm] Blood Pressure 141/72 [Right Radial Artery] O2 Sat by Pulse 93 Oximetry 11/06/16 09:42 Temperature 98.5 F Pulse Rate Pulse Rate [ 63 Left Radial] Pulse Rate [ Right Radial] Respiratory 18 Rate Blood Pressure Blood Pressure 136/67 [Left Arm] Blood Pressure [Right Radial Artery] O2 Sat by Pulse 95 Oximetry Constitutional: no acute distress, alert ENT: oropharynx moist Neck: supple, no lymphadenopathy Ascultation: Right: rhonchi (right base), Bilateral: diminished breath sounds Percussion: Bilateral: not dull Tactile fremitus: Bilateral: normal Cardiovascular: regular rate and rhythm Gastrointestinal: normoactive bowel sounds Integumentary: normal Extremities: edema Neurologic: normal mental status, non-focal exam CBC and BMP: 11/04/16 14:09 11/06/16 04:55 ABG, PT/INR, D-dimer: ABG POC ABG pH 7.428 (7.35-7.45) 11/04/16 16:27 POC ABG pCO2 43.2 (35-45) 11/04/16 16:27 POC ABG pO2 97 (80-105) 11/04/16 16:27 POC ABG HCO3 28.5 11/04/16 16:27 POC ABG Total CO2 30 11/04/16 16:27 POC ABG O2 Sat 98 11/04/16 16:27 PT/INR, D-dimer D-Dimer 1071.24 ng/mlDDU (0-234) H 11/04/16 14:09 Abnormal lab findings: Abnormal Labs 11/04/16 11/06/16 22:38 04:55 Chloride 96.8 L BUN 29 H Glucose 158 H POC Glucose 153 H Chest x-ray: image reviewed
[2016-11-06] MEDS: AMBIEN PO SCH (21:09)
[2016-11-06] MEDS: FLOMAX PO SCH (21:09)
[2016-11-07] MEDS: AZACTAM/NS 1 GM/50 ML 1 GM/50 ML VIAL IV SCH ×5 (02:00→23:29)
[2016-11-07] MEDS: NOVOLOG SUB-Q SCH (02:00)
[2016-11-07] MEDS: NORCO 5/325 PO PRN ×3 (03:36→18:22)
[2016-11-07] MEDS: MORPHINE PO PRN ×2 (06:16→21:53)
[2016-11-07] MEDS: SYNTHROID PO SCH (06:17)
[2016-11-07] MEDS: HEPARIN SUB-Q SCH ×3 (06:18→21:52)
--- NOTE | 2016-11-07 08:02 | Progress Note ---
Assessment and Plan - Patient Problems (1) CHF (congestive heart failure) Current Visit: Yes Status: Acute Qualifiers: Congestive heart failure type: unspecified congestive heart failure type Congestive heart failure chronicity: acute on chronic Qualified Code(s): I50.9 - Heart failure, unspecified Plan to address problem: Continue current regimen, diuresis, ADELINA (2) COPD exacerbation Current Visit: Yes Status: Acute Plan to address problem: Continue Steroids, Albuterol, Atrovent (3) Hypertension Onset Date: 09/05/14 Current Visit: No Status: Chronic Qualifiers: Hypertension type: H Plan to address problem: Blood pressure better controlled today (4) Pneumonia Onset Date: 09/05/14 Current Visit: No Status: Chronic Qualifiers: Pneumonia type: due to unspecified organism Aspiration pneumonia type: A Laterality: unspecified laterality Lung location: unspecified part of lung Qualified Code(s): J18.9 - Pneumonia, unspecified organism Plan to address problem: Continue IV abx (5) Back pain Current Visit: Yes Status: Acute Qualifiers: Back pain location: B Chronicity: C Back pain laterality: B Sciatica presence: S Sciatica laterality: S Plan to address problem: Will get LS spine Xray and adequate pain control History Interval history: Patient c/o back pain today Hospitalist Physical - Constitutional Vitals: Temp Pulse Resp BP Pulse Ox 97.8 F 81 20 119/65 95 11/07/16 07:50 11/07/16 07:50 11/07/16 07:50 11/07/16 07:50 11/07/16 07:50 General appearance: Present: no acute distress - EENT Eyes: Present: PERRL, EOM intact ENT: hearing intact, clear oral mucosa - Neck Neck: Present: supple, normal ROM - Respiratory Respiratory effort: normal Respiratory: bilateral: CTA - Cardiovascular Rhythm: regular Heart Sounds: Present: S1 & S2 - Extremities Extremities: no ischemia, No edema - Abdominal General gastrointestinal: soft, non-tender, non-distended, normal bowel sounds - Psychiatric Psychiatric: appropriate mood/affect, intact judgment & insight - Neurologic Neurologic: CNII-XII intact, moves all extremities Results - Labs CBC & Chem 7: 11/04/16 14:09 11/06/16 04:55 Labs: Laboratory Last Values WBC 7.1 K/mm3 (4.5-11.0) 11/04/16 14:09 RBC 3.48 M/mm3 (3.65-5.03) L 11/04/16 14:09 Hgb 8.6 gm/dl (11.8-15.2) L 11/04/16 14:09 Hct 27.8 % (35.5-45.6) L 11/04/16 14:09 MCV 80 fl (84-94) L 11/04/16 14:09 MCH 25 pg (28-32) L 11/04/16 14:09 MCHC 31 % (32-34) L 11/04/16 14:09 RDW 17.9 % (13.2-15.2) H 11/04/16 14:09 Plt Count 279 K/mm3 (140-440) 11/04/16 14:09 Lymph % (Auto) 14.6 % (13.4-35.0) 11/04/16 14:09 Quay % (Auto) 10.2 % (0.0-7.3) H 11/04/16 14:09 Eos % (Auto) 0.1 % (0.0-4.3) 11/04/16 14:09 Baso % (Auto) 0.4 % (0.0-1.8) 11/04/16 14:09 Lymph # 1.0 K/mm3 (1.2-5.4) L 11/04/16 14:09 Quay # 0.7 K/mm3 (0.0-0.8) 11/04/16 14:09 Eos # 0.0 K/mm3 (0.0-0.4) 11/04/16 14:09 Baso # 0.0 K/mm3 (0.0-0.1) 11/04/16 14:09 Seg Neutrophils % 74.7 % (40.0-70.0) H 11/04/16 14:09 Seg Neutrophils # 5.3 K/mm3 (1.8-7.7) 11/04/16 14:09 D-Dimer 1071.24 ng/mlDDU (0-234) H 11/04/16 14:09 POC ABG pH 7.428 (7.35-7.45) 11/04/16 16:27 POC ABG pCO2 43.2 (35-45) 11/04/16 16:27 POC ABG pO2 97 (80-105) 11/04/16 16:27 POC ABG HCO3 28.5 11/04/16 16:27 POC ABG Total CO2 30 11/04/16 16:27 POC ABG O2 Sat 98 11/04/16 16:27 POC ABG Base Excess 4 11/04/16 16:27 FiO2 40 % 11/04/16 16:27 Sodium 140 mmol/L (137-145) 11/06/16 04:55 Potassium 4.7 mmol/L (3.6-5.0) 11/06/16 04:55 Chloride 96.8 mmol/L (98-107) L 11/06/16 04:55 Carbon Dioxide 28 mmol/L (22-30) 11/06/16 04:55 Anion Gap 20 mmol/L 11/06/16 04:55 BUN 29 mg/dL (9-20) H 11/06/16 04:55 Creatinine 1.1 mg/dL (0.8-1.5) 11/06/16 04:55 Estimated GFR > 60 ml/min 11/06/16 04:55 BUN/Creatinine Ratio 26.36 % 11/06/16 04:55 Glucose 158 mg/dL (75-100) H 11/06/16 04:55 POC Glucose 153 (70-105) H 11/04/16 22:38 Calcium 8.5 mg/dL (8.4-10.2) 11/06/16 04:55 Troponin T < 0.010 ng/mL (0.00-0.029) 11/04/16 14:09 NT-Pro-B Natriuret Pep 1670 pg/mL (0-900) H 11/04/16 14:09
--- NOTE | 2016-11-07 08:14 | Progress Note ---
Assessment and Plan 71 y/o male with known COPD and chronic respiratory failure admitted with abnormal CXR, rib pain and most likely pneumonia. 1. Gram stain positive, await speciation 2. Changed abx therapy to aztreonam and Vanc given recent hospital stay, degree and duration of sputum. Continue those for now. 3. Continue steroids at current dosing 4. Hold on bronchoscopy 5. Patient will be here through the weekend at the least as he will likely need 8-10 days of abx therapy. The duration of the IV therapy will depend on his clinical course. Subjective Date of service: 11/07/16 Principal diagnosis: PNA; DHF Interval history: No acute events. Remains afebrile. Still no speciation on sputum yet. Sitting up eating breakfast. Feels better. Objective Vital Signs - 12hr 11/06/16 11/07/16 11/07/16 20:35 00:00 05:00 Temperature 97.5 F L 97.8 F 98.1 F Pulse Rate Pulse Rate [ Left] Pulse Rate [ 66 61 53 L Right Radial] Respiratory 20 22 20 Rate Blood Pressure [Left Arm] Blood Pressure 132/64 147/74 152/74 [Right Radial Artery] O2 Sat by Pulse 95 99 97 Oximetry 11/07/16 11/07/16 06:00 07:50 Temperature 97.8 F Pulse Rate 50 L Pulse Rate [ 81 Left] Pulse Rate [ Right Radial] Respiratory 20 Rate Blood Pressure 119/65 [Left Arm] Blood Pressure [Right Radial Artery] O2 Sat by Pulse 95 Oximetry Constitutional: no acute distress, alert ENT: oropharynx moist Neck: supple, no lymphadenopathy Ascultation: Right: rhonchi (right base), Bilateral: diminished breath sounds Percussion: Bilateral: not dull Tactile fremitus: Bilateral: normal Cardiovascular: regular rate and rhythm Gastrointestinal: normoactive bowel sounds Integumentary: normal Extremities: edema Neurologic: normal mental status, non-focal exam CBC and BMP: 11/04/16 14:09 11/06/16 04:55 ABG, PT/INR, D-dimer: ABG POC ABG pH 7.428 (7.35-7.45) 11/04/16 16:27 POC ABG pCO2 43.2 (35-45) 11/04/16 16:27 POC ABG pO2 97 (80-105) 11/04/16 16:27 POC ABG HCO3 28.5 11/04/16 16:27 POC ABG Total CO2 30 11/04/16 16:27 POC ABG O2 Sat 98 11/04/16 16:27 PT/INR, D-dimer D-Dimer 1071.24 ng/mlDDU (0-234) H 11/04/16 14:09 Abnormal lab findings: Abnormal Labs 11/04/16 11/06/16 22:38 04:55 Chloride 96.8 L BUN 29 H Glucose 158 H POC Glucose 153 H
[2016-11-07] MEDS: LASIX IV SCH (09:10)
[2016-11-07] MEDS: NEURONTIN PO SCH ×2 (09:11→21:53)
[2016-11-07] MEDS: TOPROL XL PO SCH (09:11)
--- NOTE | 2016-11-07 09:11 | Progress Note ---
Assessment and Plan Assessment: PNA Acute diastolic HF - at euvolemia. Acute on chronic respiratory failure COPD Left rib pain - left rib XR with NAF. Elevated DDimer - V/Q scan negative for PE. CAD, s/p CABG HTN DM PVD Anemia Plan: Convert IV lasix to PO, 40mg daily. Per pulmonary, pt will likely need 8-10 days of abx therapy. Currently stable cardiac status. Will see PRN. Recommend pt to follow up in our office with Suyapa Bucio NP, within 1-2 weeks of hospital discharge ([phone]). Assessment and plan reviewed with pt at bedside. The patient has been seen in conjunction with Dr. Mckinley who agrees with the assessment and plan of care. Subjective Date of service: 11/07/16 Principal diagnosis: PNA; DHF Interval history: Pt resting in bed, states SOB is improving. VSS. Objective Last Vital Signs Temp 97.8 F 11/07/16 07:50 Pulse 81 11/07/16 07:50 Resp 20 11/07/16 07:50 BP 119/65 11/07/16 07:50 Pulse Ox 95 11/07/16 07:50 - Physical Examination General: No Apparent Distress HEENT: Positive: PERRL, Normocephaly, Mucus Membranes Moist Neck: Positive: neck supple, trachea midline Cardiac: Positive: Reg Rate and Rhythm, S1/S2 Lungs: Positive: Rhonchi Neuro: Positive: Grossly Intact, Cranial Nerve 2-12 Intact Abdomen: Positive: Unremarkable, Soft, Active Bowel Sounds. Negative: Tender Skin: Positive: Clear. Negative: Rash, Wound Musculoskeletal: No Fluid Collection, No Pain, Normal Range of Motion Extremities: Present: upper extr. pulses, lower extr. pulses. Absent: edema - Imaging and Cardiology EKG: report reviewed, image reviewed Echo: report reviewed - Telemetry EKG Rhythm: Sinus Rhythm - EKG Sinus rhythms and dysrhythmias: sinus rhythm
[2016-11-07] MEDS: VANCOMYCIN 1,500 MG in NACL 0.9% 500 ML 500 ML IV SCH ×2 (09:12→21:52)
[2016-11-07] MEDS: ZESTRIL PO SCH (09:12)
[2016-11-07] MEDS: HALFPRIN EC PO SCH (09:12)
[2016-11-07] MEDS: DUONEB 0.5 MG-3 MG/3 ML SOLN IH SCH ×3 (13:50→20:08)
[2016-11-07] MEDS: FLOMAX PO SCH (21:53)
[2016-11-07] MEDS: AMBIEN PO SCH (21:53)
[2016-11-08] MEDS: NOVOLOG SUB-Q SCH (00:41)
[2016-11-08] MEDS: HEPARIN SUB-Q SCH ×3 (05:11→22:02)
[2016-11-08] MEDS: NORCO 5/325 PO PRN ×3 (05:11→22:01)
[2016-11-08] MEDS: AZACTAM/NS 1 GM/50 ML 1 GM/50 ML VIAL IV SCH ×3 (05:11→17:25)
[2016-11-08] MEDS: SYNTHROID PO SCH (05:12)
[2016-11-08 07:17] LABS: Basophils % (Auto) 0.1 % (0.0-1.8); Hemoglobin 7.8 gm/dl (11.8-15.2); Mean Corpuscular HGB Conc 30 % (32-34); Mean Corpuscular Volume 79 fl (84-94); Platelet Count 245 K/mm3 (140-440); Red Cell Distribution Width 17.9 % (13.2-15.2); White Blood Count 6.6 K/mm3 (4.5-11.0)
[2016-11-08] MEDS: DUONEB 0.5 MG-3 MG/3 ML SOLN IH SCH ×3 (07:32→20:11)
[2016-11-08 07:38] LABS: Alanine Aminotransferase 7 units/L (7-56); Albumin 2.6 g/dL (3.9-5); Albumin/Globulin Ratio 0.7 %; Alkaline Phosphatase 109 units/L (35-129); Anion Gap 15 mmol/L; BUN/Creatinine Ratio 33.75; Blood Urea Nitrogen 27 mg/dL (9-20); Calcium 8.2 mg/dL (8.4-10.2); Carbon Dioxide 30 mmol/L (22-30); Chloride 99.8 mmol/L (98-107); Glucose 183 mg/dL (75-100); Potassium 3.9 mmol/L (3.6-5.0); Sodium 141 mmol/L (137-145); Total Protein 6.2 g/dL (6.3-8.2)
[2016-11-08 07:41] LABS: Mean Corpuscular Hemoglobin 24 pg (28-32)
[2016-11-08] MEDS: VANCOMYCIN 1,500 MG in NACL 0.9% 500 ML 500 ML IV SCH (08:39)
[2016-11-08] MEDS ORDERED: LASIX IV ONE (09:03)
--- NOTE | 2016-11-08 09:03 | Progress Note ---
Assessment and Plan 71 y/o male with known COPD and chronic respiratory failure admitted with abnormal CXR, rib pain and most likely pneumonia. 1. GNR in sputum, no speciation or sensitivities just yet so continue current abx therapy. 2. Pending speciation will likely discontinue Vanco tomorrow 3. Continue steroids at current dosing, will decrease tomorrow 4. Hold on bronchoscopy 5. Patient will be here through the weekend at the least as he will likely need 8-10 days of abx therapy. The duration of the IV therapy will depend on his clinical course. 6. Will give a one time dose of lasix given overall positive state from increase in abx therapy. This will help with breathing as well. Subjective Date of service: 11/08/16 Principal diagnosis: PNA; DHF Interval history: Heavy growth of gram negative rods in sputum. Feels better. Sitting up eating breakfast. Still has rib pain. wants to know when he may be able to go home. Objective Vital Signs - 12hr 11/08/16 11/08/16 11/08/16 04:00 06:00 07:59 Temperature 98.5 F 98.6 F Pulse Rate 52 L Pulse Rate [ 59 L Left Radial] Pulse Rate [ 53 L Right Radial] Respiratory 20 20 Rate Blood Pressure 160/74 185/82 [Right Radial Artery] O2 Sat by Pulse 98 95 Oximetry Constitutional: no acute distress, alert ENT: oropharynx moist Neck: supple, no lymphadenopathy Ascultation: Bilateral: diminished breath sounds, rales (Bibasilar) Percussion: Bilateral: not dull Tactile fremitus: Bilateral: normal Cardiovascular: regular rate and rhythm Gastrointestinal: normoactive bowel sounds Integumentary: normal Extremities: edema Neurologic: normal mental status, non-focal exam CBC and BMP: 11/08/16 06:43 11/08/16 06:43 ABG, PT/INR, D-dimer: ABG POC ABG pH 7.428 (7.35-7.45) 11/04/16 16:27 POC ABG pCO2 43.2 (35-45) 11/04/16 16:27 POC ABG pO2 97 (80-105) 11/04/16 16:27 POC ABG HCO3 28.5 11/04/16 16:27 POC ABG Total CO2 30 11/04/16 16:27 POC ABG O2 Sat 98 11/04/16 16:27 PT/INR, D-dimer D-Dimer 1071.24 ng/mlDDU (0-234) H 11/04/16 14:09 Abnormal lab findings: Abnormal Labs 11/04/16 11/06/16 11/07/16 22:38 04:55 22:04 RBC Hgb Hct MCV MCH MCHC RDW Lymph % (Auto) Lymph # Seg Neutrophils % Chloride 96.8 L BUN 29 H Glucose 158 H POC Glucose 153 H 251 H Calcium Total Protein Albumin 11/08/16 11/08/16 11/08/16 06:43 06:43 07:07 RBC 3.30 L Hgb 7.8 L Hct 26.0 L MCV 79 L MCH 24 L MCHC 30 L RDW 17.9 H Lymph % (Auto) 8.3 L Lymph # 0.5 L Seg Neutrophils % 87.4 H Chloride BUN 27 H Glucose 183 H POC Glucose 217 H Calcium 8.2 L Total Protein 6.2 L Albumin 2.6 L
--- NOTE | 2016-11-08 09:19 | XRay Report ---
LUMBOSACRAL SPINE, 3 VIEWS: History: Back pain Findings: Mild osteopenia is suspected. There is moderate multilevel degenerative disc disease and facet arthropathy. L4-5 and L5-S1 are the most affected levels. 3 mm anterolisthesis of L4 with respect to L5 is identified. No evidence for displaced fracture or bone lesion. There are moderate symmetric osteoarthritic changes at the SI joints. Impression: Lumbar spondylosis as described. Osteopenia. No acute process identified.
[2016-11-08] MEDS: HALFPRIN EC PO SCH (10:06)
--- NOTE | 2016-11-08 10:07 | Progress Note ---
Assessment and Plan - Patient Problems (1) Pneumonia Onset Date: 09/05/14 Current Visit: No Status: Acute Qualifiers: Pneumonia type: due to other aerobic Gram-negative bacteria Aspiration pneumonia type: A Laterality: unspecified laterality Lung location: unspecified part of lung Qualified Code(s): J15.6 - Pneumonia due to other aerobic Gram-negative bacteria Plan to address problem: GNR in sputum.Senstivities pending.Cont Abx for 10 days. (2) CHF (congestive heart failure) Current Visit: Yes Status: Chronic Qualifiers: Congestive heart failure type: unspecified congestive heart failure type Congestive heart failure chronicity: acute on chronic Qualified Code(s): I50.9 - Heart failure, unspecified Plan to address problem: Cont Lasix (3) COPD exacerbation Current Visit: Yes Status: Acute Plan to address problem: Cont Neb tx and solumedrol (4) Hypertension Onset Date: 09/05/14 Current Visit: No Status: Chronic Qualifiers: Hypertension type: essential hypertension Qualified Code(s): I10 - Essential (primary) hypertension Plan to address problem: Cont antihypertensives (5) DVT prophylaxis Current Visit: Yes Status: Acute Plan to address problem: Cont Lovenox History Interval history: Symptomatically better. Hospitalist Physical - Constitutional Vitals: Temp Pulse Resp BP Pulse Ox 98.6 F 59 L 20 185/82 95 11/08/16 07:59 11/08/16 07:59 11/08/16 07:59 11/08/16 07:59 11/08/16 07:59 General appearance: Present: no acute distress - EENT Eyes: Present: PERRL, EOM intact ENT: clear oral mucosa - Neck Neck: Present: supple, normal ROM - Respiratory Respiratory effort: normal Respiratory: bilateral: CTA, rhonchi - Cardiovascular Heart rate: 76 Rhythm: regular Heart Sounds: Present: S1 & S2 - Extremities Extremities: no ischemia, pulses intact, pulses symmetrical Peripheral Pulses: within normal limits - Abdominal General gastrointestinal: soft, non-tender, non-distended, normal bowel sounds - Integumentary Integumentary: Present: clear, warm, dry - Psychiatric Psychiatric: appropriate mood/affect, intact judgment & insight, memory intact, cooperative - Neurologic Neurologic: CNII-XII intact, moves all extremities, gait normal - Allied Health Allied health notes reviewed: nursing, case management Results - Labs CBC & Chem 7: 11/09/16 06:51 11/09/16 06:51 Labs: Laboratory Last Values WBC 6.6 K/mm3 (4.5-11.0) 11/08/16 06:43 RBC 3.30 M/mm3 (3.65-5.03) L 11/08/16 06:43 Hgb 7.8 gm/dl (11.8-15.2) L 11/08/16 06:43 Hct 26.0 % (35.5-45.6) L 11/08/16 06:43 MCV 79 fl (84-94) L 11/08/16 06:43 MCH 24 pg (28-32) L 11/08/16 06:43 MCHC 30 % (32-34) L 11/08/16 06:43 RDW 17.9 % (13.2-15.2) H 11/08/16 06:43 Plt Count 245 K/mm3 (140-440) 11/08/16 06:43 Lymph % (Auto) 8.3 % (13.4-35.0) L 11/08/16 06:43 Giles % (Auto) 4.2 % (0.0-7.3) 11/08/16 06:43 Eos % (Auto) 0.0 % (0.0-4.3) 11/08/16 06:43 Baso % (Auto) 0.1 % (0.0-1.8) 11/08/16 06:43 Lymph # 0.5 K/mm3 (1.2-5.4) L 11/08/16 06:43 Giles # 0.3 K/mm3 (0.0-0.8) 11/08/16 06:43 Eos # 0.0 K/mm3 (0.0-0.4) 11/08/16 06:43 Baso # 0.0 K/mm3 (0.0-0.1) 11/08/16 06:43 Seg Neutrophils % 87.4 % (40.0-70.0) H 11/08/16 06:43 Seg Neutrophils # 5.7 K/mm3 (1.8-7.7) 11/08/16 06:43 D-Dimer 1071.24 ng/mlDDU (0-234) H 11/04/16 14:09 POC ABG pH 7.428 (7.35-7.45) 11/04/16 16:27 POC ABG pCO2 43.2 (35-45) 11/04/16 16:27 POC ABG pO2 97 (80-105) 11/04/16 16:27 POC ABG HCO3 28.5 11/04/16 16:27 POC ABG Total CO2 30 11/04/16 16:27 POC ABG O2 Sat 98 11/04/16 16:27 POC ABG Base Excess 4 11/04/16 16:27 FiO2 40 % 11/04/16 16:27 Sodium 141 mmol/L (137-145) 11/08/16 06:43 Potassium 3.9 mmol/L (3.6-5.0) 11/08/16 06:43 Chloride 99.8 mmol/L (98-107) 11/08/16 06:43 Carbon Dioxide 30 mmol/L (22-30) 11/08/16 06:43 Anion Gap 15 mmol/L 11/08/16 06:43 BUN 27 mg/dL (9-20) H 11/08/16 06:43 Creatinine 0.8 mg/dL (0.8-1.5) 11/08/16 06:43 Estimated GFR > 60 ml/min 11/08/16 06:43 BUN/Creatinine Ratio 33.75 % 11/08/16 06:43 Glucose 183 mg/dL (75-100) H 11/08/16 06:43 POC Glucose 217 (70-105) H 11/08/16 07:07 Calcium 8.2 mg/dL (8.4-10.2) L 11/08/16 06:43 Total Bilirubin 0.40 mg/dL (0.1-1.2) 11/08/16 06:43 AST 7 units/L (5-40) 11/08/16 06:43 ALT 7 units/L (7-56) 11/08/16 06:43 Alkaline Phosphatase 109 units/L (35-129) 11/08/16 06:43 Troponin T < 0.010 ng/mL (0.00-0.029) 11/04/16 14:09 NT-Pro-B Natriuret Pep 1670 pg/mL (0-900) H 11/04/16 14:09 Total Protein 6.2 g/dL (6.3-8.2) L 11/08/16 06:43 Albumin 2.6 g/dL (3.9-5) L 11/08/16 06:43 Albumin/Globulin Ratio 0.7 % 11/08/16 06:43 Vancomycin Trough 30.6 ug/mL (5.0-20.0) H 11/08/16 06:43 Short CBC 11/09/16 Range/Units 06:51 WBC 9.8 (4.5-11.0) K/mm3 Hgb 8.0 L (11.8-15.2) gm/dl Hct 25.4 L (35.5-45.6) % Plt Count 182 (140-440) K/mm3 BMP 11/09/16 06:51 Sodium 143 Potassium 3.7 Chloride 99.7 Carbon Dioxide 30 BUN 25 H Creatinine 0.7 L Glucose 108 H Calcium 8.1 L Liver Function 11/09/16 Range/Units 06:51 Total Bilirubin 0.40 (0.1-1.2) mg/dL AST 7 (5-40) units/L ALT 7 (7-56) units/L Alkaline Phosphatase 106 (35-129) units/L Albumin 2.4 L (3.9-5) g/dL
[2016-11-08] MEDS: ZESTRIL PO SCH (10:08)
[2016-11-08] MEDS: LASIX PO SCH (10:09)
[2016-11-08] MEDS: NEURONTIN PO SCH ×2 (10:09→22:00)
[2016-11-08] MEDS: TOPROL XL PO SCH (12:53)
[2016-11-08] MEDS: MORPHINE PO PRN (17:31)
[2016-11-08] MEDS: FLOMAX PO SCH (22:00)
[2016-11-08] MEDS: AMBIEN PO SCH (22:00)
[2016-11-09] MEDS: AZACTAM/NS 1 GM/50 ML 1 GM/50 ML VIAL IV SCH ×4 (00:20→17:59)
[2016-11-09] MEDS: NOVOLOG SUB-Q SCH (03:00)
[2016-11-09] MEDS: HEPARIN SUB-Q SCH ×3 (05:41→21:59)
[2016-11-09] MEDS: SYNTHROID PO SCH (05:42)
[2016-11-09] MEDS: DUONEB 0.5 MG-3 MG/3 ML SOLN IH SCH ×3 (07:19→19:58)
[2016-11-09 07:47] LABS: Basophils % (Auto) 0.2 % (0.0-1.8); Hematocrit 25.4 % (35.5-45.6); Mean Corpuscular HGB Conc 32 % (32-34); Mean Corpuscular Volume 79 fl (84-94); Red Cell Distribution Width 17.9 % (13.2-15.2); White Blood Count 9.8 K/mm3 (4.5-11.0)
[2016-11-09 07:50] LABS: Mean Corpuscular Hemoglobin 25 pg (28-32); Platelet Count 182 K/mm3 (140-440)
[2016-11-09 08:07] LABS: Alanine Aminotransferase 7 units/L (7-56); Albumin 2.4 g/dL (3.9-5); Albumin/Globulin Ratio 0.6 %; Alkaline Phosphatase 106 units/L (35-129); Anion Gap 17 mmol/L; BUN/Creatinine Ratio 35.71; Blood Urea Nitrogen 25 mg/dL (9-20); Calcium 8.1 mg/dL (8.4-10.2); Carbon Dioxide 30 mmol/L (22-30); Chloride 99.7 mmol/L (98-107); Glucose 108 mg/dL (75-100); Potassium 3.7 mmol/L (3.6-5.0); Sodium 143 mmol/L (137-145); Total Protein 6.3 g/dL (6.3-8.2)
[2016-11-09] MEDS: MORPHINE PO PRN (09:45)
[2016-11-09] MEDS: TOPROL XL PO SCH (09:53)
[2016-11-09] MEDS: ZESTRIL PO SCH (09:53)
[2016-11-09] MEDS: NEURONTIN PO SCH ×2 (09:54→21:59)
[2016-11-09] MEDS: HALFPRIN EC PO SCH (09:54)
[2016-11-09] MEDS: LASIX PO SCH (09:54)
--- NOTE | 2016-11-09 10:24 | Progress Note ---
Assessment and Plan 71 y/o male with known COPD and chronic respiratory failure admitted with abnormal CXR, rib pain and most likely pneumonia. 1. GNR in sputum, no speciation or sensitivities just yet so continue current abx therapy. 2. Ok with discontinuing Vanc today, no GP's have been identified. 3. Change steroids to 60q8 4. Hold on bronchoscopy, no current need with clinical improvement 5. Patient will be here through the weekend at the least as he will likely need 8-10 days of abx therapy. The duration of the IV therapy will depend on his clinical course and speciation of bacteria 6. Held off on lasix therapy yesterday. Will not give today either. Subjective Date of service: 11/09/16 Principal diagnosis: PNA; DHF Interval history: No acute events. Afebrile and white count improving. Objective Vital Signs - 12hr 11/09/16 11/09/16 11/09/16 00:00 02:36 05:00 Temperature 97.9 F 98.7 F Pulse Rate 54 L Pulse Rate [ Bilateral Throughout] Pulse Rate [ 67 58 L Right Radial] Respiratory 21 19 Rate Respiratory Rate [Bilateral Throughout] Blood Pressure Blood Pressure 166/78 [Left Arm] Blood Pressure 166/77 [Right Radial Artery] O2 Sat by Pulse 94 93 Oximetry 11/09/16 11/09/16 07:19 09:53 Temperature Pulse Rate 67 Pulse Rate [ 52 L Bilateral Throughout] Pulse Rate [ Right Radial] Respiratory Rate Respiratory 18 Rate [Bilateral Throughout] Blood Pressure 163/72 Blood Pressure [Left Arm] Blood Pressure [Right Radial Artery] O2 Sat by Pulse 99 Oximetry Constitutional: no acute distress, alert ENT: oropharynx moist Neck: supple, no lymphadenopathy Ascultation: Right: rhonchi (right base), Bilateral: diminished breath sounds, rales (Bibasilar) Percussion: Bilateral: not dull Tactile fremitus: Bilateral: normal Cardiovascular: regular rate and rhythm Gastrointestinal: normoactive bowel sounds Integumentary: normal Extremities: edema Neurologic: normal mental status, non-focal exam CBC and BMP: 11/09/16 06:51 11/09/16 06:51 ABG, PT/INR, D-dimer: ABG POC ABG pH 7.428 (7.35-7.45) 11/04/16 16:27 POC ABG pCO2 43.2 (35-45) 11/04/16 16:27 POC ABG pO2 97 (80-105) 11/04/16 16:27 POC ABG HCO3 28.5 11/04/16 16:27 POC ABG Total CO2 30 11/04/16 16:27 POC ABG O2 Sat 98 11/04/16 16:27 PT/INR, D-dimer D-Dimer 1071.24 ng/mlDDU (0-234) H 11/04/16 14:09 Abnormal lab findings: Abnormal Labs 11/04/16 11/06/16 11/07/16 22:38 04:55 22:04 RBC Hgb Hct MCV MCH MCHC RDW Lymph % (Auto) Lymph # Seg Neutrophils % Seg Neutrophils # Chloride 96.8 L BUN 29 H Creatinine Glucose 158 H POC Glucose 153 H 251 H Calcium Total Protein Albumin Vancomycin Trough 11/08/16 11/08/16 11/08/16 06:43 06:43 06:43 RBC 3.30 L Hgb 7.8 L Hct 26.0 L MCV 79 L MCH 24 L MCHC 30 L RDW 17.9 H Lymph % (Auto) 8.3 L Lymph # 0.5 L Seg Neutrophils % 87.4 H Seg Neutrophils # Chloride BUN 27 H Creatinine Glucose 183 H POC Glucose Calcium 8.2 L Total Protein 6.2 L Albumin 2.6 L Vancomycin Trough 30.6 H 11/08/16 11/08/16 11/08/16 07:07 11:37 15:50 RBC Hgb Hct MCV MCH MCHC RDW Lymph % (Auto) Lymph # Seg Neutrophils % Seg Neutrophils # Chloride BUN Creatinine Glucose POC Glucose 217 H 278 H 207 H Calcium Total Protein Albumin Vancomycin Trough 11/08/16 11/09/16 11/09/16 21:20 06:51 06:51 RBC 3.20 L Hgb 8.0 L Hct 25.4 L MCV 79 L MCH 25 L MCHC RDW 17.9 H Lymph % (Auto) 5.8 L Lymph # 0.6 L Seg Neutrophils % 89.2 H Seg Neutrophils # 8.7 H Chloride BUN 25 H Creatinine 0.7 L Glucose 108 H POC Glucose 240 H Calcium 8.1 L Total Protein Albumin 2.4 L Vancomycin Trough 11/09/16 08:12 RBC Hgb Hct MCV MCH MCHC RDW Lymph % (Auto) Lymph # Seg Neutrophils % Seg Neutrophils # Chloride BUN Creatinine Glucose POC Glucose 145 H Calcium Total Protein Albumin Vancomycin Trough
[2016-11-09] MEDS: NORCO 5/325 PO PRN ×2 (14:03→21:58)
--- NOTE | 2016-11-09 16:45 | Progress Note ---
Assessment and Plan - Patient Problems (1) Pneumonia Onset Date: 09/05/14 Current Visit: No Status: Acute Qualifiers: Pneumonia type: due to other aerobic Gram-negative bacteria Aspiration pneumonia type: A Laterality: unspecified laterality Lung location: unspecified part of lung Qualified Code(s): J15.6 - Pneumonia due to other aerobic Gram-negative bacteria Plan to address problem: GNR in sputum.Senstivities pending.Cont Abx for 10 days. (2) COPD exacerbation Current Visit: Yes Status: Acute Plan to address problem: Cont Neb tx and solumedrol (3) CHF (congestive heart failure) Current Visit: Yes Status: Chronic Qualifiers: Congestive heart failure type: unspecified congestive heart failure type Congestive heart failure chronicity: acute on chronic Qualified Code(s): I50.9 - Heart failure, unspecified Plan to address problem: Cont Lasix (4) Hypertension Onset Date: 09/05/14 Current Visit: No Status: Chronic Qualifiers: Hypertension type: essential hypertension Qualified Code(s): I10 - Essential (primary) hypertension Plan to address problem: Cont antihypertensives (5) DVT prophylaxis Current Visit: Yes Status: Acute Plan to address problem: Cont Lovenox History Interval history: Symptomatically better Hospitalist Physical - Constitutional Vitals: Temp Pulse Resp BP Pulse Ox 98.0 F 71 15 111/70 99 11/09/16 16:40 11/09/16 16:40 11/09/16 16:40 11/09/16 16:40 11/09/16 16:40 General appearance: Present: no acute distress - EENT Eyes: Present: PERRL, EOM intact ENT: hearing intact, clear oral mucosa - Neck Neck: Present: supple, normal ROM - Respiratory Respiratory effort: normal Respiratory: bilateral: CTA - Cardiovascular Heart rate: 75 Rhythm: regular Heart Sounds: Present: S1 & S2 - Extremities Extremities: no ischemia, pulses intact, pulses symmetrical Peripheral Pulses: within normal limits - Abdominal General gastrointestinal: soft, non-tender, non-distended - Integumentary Integumentary: Present: clear, warm, dry - Psychiatric Psychiatric: appropriate mood/affect, intact judgment & insight, memory intact, cooperative - Neurologic Neurologic: CNII-XII intact, moves all extremities, gait normal - Allied Health Allied health notes reviewed: nursing, case management Results - Labs CBC & Chem 7: 11/09/16 06:51 11/09/16 06:51 Labs: Laboratory Last Values WBC 9.8 K/mm3 (4.5-11.0) 11/09/16 06:51 RBC 3.20 M/mm3 (3.65-5.03) L 11/09/16 06:51 Hgb 8.0 gm/dl (11.8-15.2) L 11/09/16 06:51 Hct 25.4 % (35.5-45.6) L 11/09/16 06:51 MCV 79 fl (84-94) L 11/09/16 06:51 MCH 25 pg (28-32) L 11/09/16 06:51 MCHC 32 % (32-34) 11/09/16 06:51 RDW 17.9 % (13.2-15.2) H 11/09/16 06:51 Plt Count 182 K/mm3 (140-440) 11/09/16 06:51 Lymph % (Auto) 5.8 % (13.4-35.0) L 11/09/16 06:51 [place] % (Auto) 4.8 % (0.0-7.3) 11/09/16 06:51 Eos % (Auto) 0.0 % (0.0-4.3) 11/09/16 06:51 Baso % (Auto) 0.2 % (0.0-1.8) 11/09/16 06:51 Lymph # 0.6 K/mm3 (1.2-5.4) L 11/09/16 06:51 [place] # 0.5 K/mm3 (0.0-0.8) 11/09/16 06:51 Eos # 0.0 K/mm3 (0.0-0.4) 11/09/16 06:51 Baso # 0.0 K/mm3 (0.0-0.1) 11/09/16 06:51 Seg Neutrophils % 89.2 % (40.0-70.0) H 11/09/16 06:51 Seg Neutrophils # 8.7 K/mm3 (1.8-7.7) H 11/09/16 06:51 D-Dimer 1071.24 ng/mlDDU (0-234) H 11/04/16 14:09 POC ABG pH 7.428 (7.35-7.45) 11/04/16 16:27 POC ABG pCO2 43.2 (35-45) 11/04/16 16:27 POC ABG pO2 97 (80-105) 11/04/16 16:27 POC ABG HCO3 28.5 11/04/16 16:27 POC ABG Total CO2 30 11/04/16 16:27 POC ABG O2 Sat 98 11/04/16 16:27 POC ABG Base Excess 4 11/04/16 16:27 FiO2 40 % 11/04/16 16:27 Sodium 143 mmol/L (137-145) 11/09/16 06:51 Potassium 3.7 mmol/L (3.6-5.0) 11/09/16 06:51 Chloride 99.7 mmol/L (98-107) 11/09/16 06:51 Carbon Dioxide 30 mmol/L (22-30) 11/09/16 06:51 Anion Gap 17 mmol/L 11/09/16 06:51 BUN 25 mg/dL (9-20) H 11/09/16 06:51 Creatinine 0.7 mg/dL (0.8-1.5) L 11/09/16 06:51 Estimated GFR > 60 ml/min 11/09/16 06:51 BUN/Creatinine Ratio 35.71 % 11/09/16 06:51 Glucose 108 mg/dL (75-100) H 11/09/16 06:51 POC Glucose 238 (70-105) H 11/09/16 15:39 Calcium 8.1 mg/dL (8.4-10.2) L 11/09/16 06:51 Total Bilirubin 0.40 mg/dL (0.1-1.2) 11/09/16 06:51 AST 7 units/L (5-40) 11/09/16 06:51 ALT 7 units/L (7-56) 11/09/16 06:51 Alkaline Phosphatase 106 units/L (35-129) 11/09/16 06:51 Troponin T < 0.010 ng/mL (0.00-0.029) 11/04/16 14:09 NT-Pro-B Natriuret Pep 1670 pg/mL (0-900) H 11/04/16 14:09 Total Protein 6.3 g/dL (6.3-8.2) 11/09/16 06:51 Albumin 2.4 g/dL (3.9-5) L 11/09/16 06:51 Albumin/Globulin Ratio 0.6 % 11/09/16 06:51 Vancomycin Trough 30.6 ug/mL (5.0-20.0) H 11/08/16 06:43 Random Vancomycin 20.4 ug/mL (0-40.0) 11/09/16 06:51 - Imaging and Cardiology Chest x-ray: report reviewed
[2016-11-09] MEDS: AMBIEN PO SCH (21:58)
[2016-11-09] MEDS: FLOMAX PO SCH (21:59)
[2016-11-10] MEDS: AZACTAM/NS 1 GM/50 ML 1 GM/50 ML VIAL IV SCH ×2 (01:18→06:23)
[2016-11-10] MEDS: NOVOLOG SUB-Q SCH (01:22)
[2016-11-10] MEDS: HEPARIN SUB-Q SCH (06:22)
[2016-11-10] MEDS: NORCO 5/325 PO PRN (06:22)
[2016-11-10] MEDS: SYNTHROID PO SCH (06:24)
[2016-11-10] MEDS: ZESTRIL PO SCH ×2 (06:26→10:00)
--- NOTE | 2016-11-10 08:10 | Progress Note ---
Assessment and Plan - Patient Problems (1) CHF (congestive heart failure) Current Visit: Yes Status: Chronic Qualifiers: Congestive heart failure type: unspecified congestive heart failure type Congestive heart failure chronicity: acute on chronic Qualified Code(s): I50.9 - Heart failure, unspecified (2) COPD exacerbation Current Visit: Yes Status: Acute (3) Hypertension Onset Date: 09/05/14 Current Visit: No Status: Chronic Qualifiers: Hypertension type: essential hypertension Qualified Code(s): I10 - Essential (primary) hypertension (4) Pneumonia Onset Date: 09/05/14 Current Visit: No Status: Acute Qualifiers: Pneumonia type: due to other aerobic Gram-negative bacteria Aspiration pneumonia type: A Laterality: unspecified laterality Lung location: unspecified part of lung Qualified Code(s): J15.6 - Pneumonia due to other aerobic Gram-negative bacteria (5) Back pain Current Visit: Yes Status: Acute Qualifiers: Back pain location: B Chronicity: C Back pain laterality: B Sciatica presence: S Sciatica laterality: S Hospitalist Physical - Constitutional Vitals: Temp Pulse Resp BP Pulse Ox 98 F 60 20 187/81 97 11/10/16 05:44 11/10/16 06:26 11/10/16 05:44 11/10/16 06:26 11/10/16 05:44 General appearance: Present: no acute distress Results - Labs CBC & Chem 7: 11/09/16 06:51 11/09/16 06:51 Labs: Laboratory Last Values WBC 9.8 K/mm3 (4.5-11.0) 11/09/16 06:51 RBC 3.20 M/mm3 (3.65-5.03) L 11/09/16 06:51 Hgb 8.0 gm/dl (11.8-15.2) L 11/09/16 06:51 Hct 25.4 % (35.5-45.6) L 11/09/16 06:51 MCV 79 fl (84-94) L 11/09/16 06:51 MCH 25 pg (28-32) L 11/09/16 06:51 MCHC 32 % (32-34) 11/09/16 06:51 RDW 17.9 % (13.2-15.2) H 11/09/16 06:51 Plt Count 182 K/mm3 (140-440) 11/09/16 06:51 Lymph % (Auto) 5.8 % (13.4-35.0) L 11/09/16 06:51 [place] % (Auto) 4.8 % (0.0-7.3) 11/09/16 06:51 Eos % (Auto) 0.0 % (0.0-4.3) 11/09/16 06:51 Baso % (Auto) 0.2 % (0.0-1.8) 11/09/16 06:51 Lymph # 0.6 K/mm3 (1.2-5.4) L 11/09/16 06:51 [place] # 0.5 K/mm3 (0.0-0.8) 11/09/16 06:51 Eos # 0.0 K/mm3 (0.0-0.4) 11/09/16 06:51 Baso # 0.0 K/mm3 (0.0-0.1) 11/09/16 06:51 Seg Neutrophils % 89.2 % (40.0-70.0) H 11/09/16 06:51 Seg Neutrophils # 8.7 K/mm3 (1.8-7.7) H 11/09/16 06:51 D-Dimer 1071.24 ng/mlDDU (0-234) H 11/04/16 14:09 POC ABG pH 7.428 (7.35-7.45) 11/04/16 16:27 POC ABG pCO2 43.2 (35-45) 11/04/16 16:27 POC ABG pO2 97 (80-105) 11/04/16 16:27 POC ABG HCO3 28.5 11/04/16 16:27 POC ABG Total CO2 30 11/04/16 16:27 POC ABG O2 Sat 98 11/04/16 16:27 POC ABG Base Excess 4 11/04/16 16:27 FiO2 40 % 11/04/16 16:27 Sodium 143 mmol/L (137-145) 11/09/16 06:51 Potassium 3.7 mmol/L (3.6-5.0) 11/09/16 06:51 Chloride 99.7 mmol/L (98-107) 11/09/16 06:51 Carbon Dioxide 30 mmol/L (22-30) 11/09/16 06:51 Anion Gap 17 mmol/L 11/09/16 06:51 BUN 25 mg/dL (9-20) H 11/09/16 06:51 Creatinine 0.7 mg/dL (0.8-1.5) L 11/09/16 06:51 Estimated GFR > 60 ml/min 11/09/16 06:51 BUN/Creatinine Ratio 35.71 % 11/09/16 06:51 Glucose 108 mg/dL (75-100) H 11/09/16 06:51 POC Glucose 218 (70-105) H 11/09/16 21:23 Calcium 8.1 mg/dL (8.4-10.2) L 11/09/16 06:51 Total Bilirubin 0.40 mg/dL (0.1-1.2) 11/09/16 06:51 AST 7 units/L (5-40) 11/09/16 06:51 ALT 7 units/L (7-56) 11/09/16 06:51 Alkaline Phosphatase 106 units/L (35-129) 11/09/16 06:51 Troponin T < 0.010 ng/mL (0.00-0.029) 11/04/16 14:09 NT-Pro-B Natriuret Pep 1670 pg/mL (0-900) H 11/04/16 14:09 Total Protein 6.3 g/dL (6.3-8.2) 11/09/16 06:51 Albumin 2.4 g/dL (3.9-5) L 11/09/16 06:51 Albumin/Globulin Ratio 0.6 % 11/09/16 06:51 Vancomycin Trough 30.6 ug/mL (5.0-20.0) H 11/08/16 06:43 Random Vancomycin 20.4 ug/mL (0-40.0) 11/09/16 06:51
[2016-11-10] MEDS: DUONEB 0.5 MG-3 MG/3 ML SOLN IH SCH (09:25)
[2016-11-10] MEDS: HALFPRIN EC PO SCH (10:00)
[2016-11-10] MEDS: NEURONTIN PO SCH (10:00)
[2016-11-10] MEDS: LASIX PO SCH (10:00)
[2016-11-10 10:01] VITALS: BP 164/78
--- NOTE | 2016-11-10 10:01 | Discharge Summary ---
Providers - Providers Date of Admission: 11/04/16 17:06 Date of discharge: 11/10/16 Attending physician: DERRICK REA 11/05/16 09:35 Consult to Physician [CONS] Routine Consulting Provider: DENICE MENDOZA Reason For Exam: copd Place consult to:: Dr. Mendoza Notified:: Peggy MORRIS Phone number called:: Was contact made?: Yes If yes, spoke with:: Britta-Office Time called:: 10:24 11/05/16 09:38 Consult to Physician [CONS] Routine Consulting Provider: BETTINA JJ Reason For Exam: chf Place consult to:: Dr. Jj Notified:: Peggy MORRIS Was contact made?: Yes If yes, spoke with:: Armdia Julio Primary care physician: ROADS SUPERVISOR Hospitalization Condition: Fair Hospital course: 71-year-old male with medical history significant for COPD, [place] status post CABG, CHF presented to the emergency department complaining of rib cage pain, cough productive of greenish sputum, wheezing, generalized pain. Patient states he was admitted on October 20 and was discharged but he said his problem is not fixed. Patient was sent on 4 L of home oxygen. Patient's main question is pain medication. The patient can maintain his oxygen saturation was 80% on room air. The emergency department chest x-ray was done and showed pulmonary congestion and interstitial infiltrates. Patient was admitted to the hospital started on IV antibiotics. Patient was also evaluated by pulmonary medicine. Patient clinically improved over the hospital stay. Patient was diagnosed with COPD and pneumonia. Found to have gram-negative rods in the sputum sample. Patient will be discharged home with antibiotics to cover pseudomonas. We'll give broad-spectrum fluoroquinolones. Patient state that he is clinically better and asking to go home. Patient state that his breathing feels about at his baseline. Patient will follow-up with Dr. Rahman social worker psychiatric as an outpatient and Dr. Carter his primary care. Disposition: DISCHARGED TO HOME OR SELFCARE - Discharge Diagnoses (1) CHF (congestive heart failure) Status: Chronic Qualifiers: Congestive heart failure type: unspecified congestive heart failure type Congestive heart failure chronicity: acute on chronic Qualified Code(s): I50.9 - Heart failure, unspecified (2) COPD exacerbation Status: Acute (3) Hypertension Status: Chronic Qualifiers: Hypertension type: essential hypertension Qualified Code(s): I10 - Essential (primary) hypertension (4) Pneumonia Status: Acute Qualifiers: Pneumonia type: due to other aerobic Gram-negative bacteria Aspiration pneumonia type: A Laterality: unspecified laterality Lung location: unspecified part of lung Qualified Code(s): J15.6 - Pneumonia due to other aerobic Gram-negative bacteria (5) Back pain Status: Acute Qualifiers: Back pain location: B Chronicity: C Back pain laterality: B Sciatica presence: S Sciatica laterality: S Core Measure Documentation - Palliative Care Palliative Care/ Comfort Measures: Not Applicable - Core Measures Any of the following diagnoses?: none Exam - Constitutional Vitals: Temp Pulse Resp BP Pulse Ox 97.6 F 52 L 18 164/78 98 11/10/16 08:43 11/10/16 10:00 11/10/16 09:25 11/10/16 10:00 11/10/16 09:27 General appearance: Present: no acute distress - EENT Eyes: Present: PERRL, EOM intact ENT: hearing intact, clear oral mucosa - Neck Neck: Present: supple, normal ROM - Respiratory Respiratory effort: normal Respiratory: bilateral: wheezing - Cardiovascular Rhythm: regular Heart Sounds: Present: S1 & S2 - Abdominal General gastrointestinal: Present: soft, non-tender, non-distended, normal bowel sounds - Musculoskeletal Musculoskeletal: strength equal bilaterally - Psychiatric Psychiatric: appropriate mood/affect, intact judgment & insight - Neurologic Neurologic: CNII-XII intact, moves all extremities Plan Activity: advance as tolerated Weight Bearing Status: Weight Bear as Tolerated Diet: low fat, low cholesterol, low salt Follow up with: PRIMARY MD HILARIO [Primary Care Provider] - 3-5 Days TRISHA RAHMAN MD [Staff Physician] - 7 Days MEET CARTER JR, MD [Staff Physician] - 7 Days Prescriptions: ALBUTEROL NEB's [Proventil 0.083% NEBS] 2.5 mg IH TID PRN #30 nebu PRN Reason: Wheezing Aspirin EC [Aspirin Enteric Coated TAB] 81 mg PO QDAY #30 tablet AtorvaSTATin [Lipitor] 40 mg PO QHS #30 tablet Combivent Inhaler 2 puff INHALATION PRN #3 Gabapentin [Neurontin] 300 mg PO BID #60 capsule Home Oxygen @ 3lpm 2.5 l INHALATION DAILY #7 Levothyroxine [Synthroid] 100 mcg PO QAM #30 tablet Lisinopril [Zestril TAB] 10 mg PO QDAY #30 tablet Morphine TAB 30 mg PO PRN #30 Prednisone [predniSONE 10 mg (6-Day Pack, 21 Tabs)] 10 mg PO .TAPER #1 tab.ds.pk Tamsulosin [Flomax] 0.4 mg PO QDAY #30 capsule Tiotropium Br/Olodaterol HCl [Stiolto Respimat Inhal [place]] 4 gm IH DAILY #7 mist.inhal Zolpidem [Ambien] 10 mg PO QHS #30 tablet
== END 2016-11-10 12:20 | disposition home or self-care (01) | DRG 177 ==
LOC: ED 13:36 → 4A 17:06
PROVIDERS: ADMIT Internal Medicine; ATTEND Internal Medicine
PROC: 4A033R1 Measurement of Arterial Saturation, Peripheral, Percutaneous Approach (ICD-10-PCS; principal; 2016-11-04)
DX: J15.6 Pneumonia due to other Gram-negative bacteria (principal); J96.21 Acute and chronic respiratory failure with hypoxia; I50.33 Acute on chronic diastolic (congestive) heart failure; J44.1 Chronic obstructive pulmonary disease with (acute) exacerbation; J44.0 Chronic obstructive pulmonary disease with (acute) lower respiratory infection; J98.01 Acute bronchospasm; E03.9 Hypothyroidism, unspecified; I11.0 Hypertensive heart disease with heart failure; M54.9 Dorsalgia, unspecified; I25.10 Atherosclerotic heart disease of native coronary artery without angina pectoris; E11.51 Type 2 diabetes mellitus with diabetic peripheral angiopathy without gangrene; D64.9 Anemia, unspecified; I25.2 Old myocardial infarction; Z95.1 Presence of aortocoronary bypass graft; Z88.0 Allergy status to penicillin
CPT/HCPCS: 36415; 71010; 72100; 78580; 80048; 80053; 80202; 82803; 82962; 83880; 84484; 85025; 85379; 87040; 87070; 87076; 87186; 87205; 93005; 93010; 94640; 94760; 96365; 96366; 96367; 96375; A9270-GY; A9540; J1644; J1815; J1885; J1940; J1956; J2270; J2930; J3370; J3475; J7040

== ENCOUNTER 2017-05-12 05:55 | Inpatient (IN) | payer MEDICARE ==
[2017-05-12] MEDS ORDERED: DUONEB *Not for PRN Use IH ONE (06:24)
--- NOTE | 2017-05-12 06:28 | Emergency Department Report ---
HPI - General Chief Complaint: Dyspnea/Respdistress Time Seen by Provider: 05/12/17 06:04 - HPI HPI: This is a 72-year-old male who presents to the emergency department via EMS with a complaint of a few days of progressively worsening shortness of breath and a cough. The patient has history of COPD, CHF, coronary artery disease with previous CABG and is a hospice patient. There is no signed DO NOT RESUSCITATE. They attempted to place him on a CPAP in route but it was only for a short time. Patient is currently a poor historian secondary to his respiratory status. He is oxygen dependent at home at about 3-4 L via nasal cannula. Allegedly there was some hypoxia per the home health care nurse. 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 The patient's daughter now came bedside and provided some more information. The SOB has been going on since Thursday but worsened last night. ED Past Medical Hx - Past Medical History Previous Medical History?: Yes Hx Hypertension: Yes Hx Heart Attack/AMI: Yes (2005, GABGx3) Hx Congestive Heart Failure: Yes Hx Diabetes: Yes (NO LONGER TAKEN MEDICATION) Hx COPD: Yes Additional medical history: CAD - Surgical History Past Surgical History?: Yes Hx Open Heart Surgery: Yes (november 2004) - Social History Smoking Status: Former Smoker Substance Use Type: Alcohol - Medications Home Medications: Home Medications Medication Instructions Recorded Confirmed Last Taken Type HYDROcodone/APAP 5-325 [[place] 2 each PO Q6H PRN #45 tablet 09/08/14 05/12/17 1 Day Ago Rx 5-325 mg TAB] ~10/19/16 2 ALBUTEROL NEB's [Proventil 0.083% 2.5 mg IH TID PRN #30 nebu 11/10/16 05/12/17 Unknown Rx NEBS] Aspirin EC [Aspirin Enteric Coated 81 mg PO QDAY #30 tablet 11/10/16 05/12/17 Unknown Rx TAB] Gabapentin [Neurontin] 300 mg PO BID #60 capsule 11/10/16 05/12/17 Unknown Rx Home Oxygen @ 3lpm 2.5 l INHALATION DAILY #7 11/10/16 05/12/17 Unknown Rx Levothyroxine [Synthroid] 100 mcg PO QAM #30 tablet 11/10/16 05/12/17 Unknown Rx Tamsulosin [Flomax] 0.4 mg PO QDAY #30 capsule 11/10/16 05/12/17 Unknown Rx Zolpidem [Ambien] 10 mg PO QHS #30 tablet 11/10/16 05/12/17 Unknown Rx Ipratropium/Albuter (Nf) 2 puff IH QID 05/12/17 05/12/17 Unknown History [Combivent (Nf)] LORazepam [Ativan] 1 mg PO BID 05/12/17 05/12/17 Unknown History PARoxetine [Paxil] 40 mg PO DAILY 05/12/17 05/12/17 Unknown History Prednisone [predniSONE (Ghanshyam) ER 5 mg PO QDAY 05/12/17 05/12/17 Unknown History TAB] Sennosides [Senna] 8.6 mg PO DAILY 05/12/17 05/12/17 Unknown History Sulfamethoxazole/Trimethoprim 1 each PO BID 05/12/17 05/12/17 Unknown History [Bactrim DS TAB] ED Review of Systems ROS: Stated complaint: SLAVA Other details as noted in HPI Comment: All other systems reviewed and negative Constitutional: denies: chills, fever Eyes: denies: eye pain, eye discharge, vision change ENT: denies: ear pain, throat pain Respiratory: cough, shortness of breath Cardiovascular: edema. denies: chest pain Gastrointestinal: denies: abdominal pain, nausea, diarrhea Genitourinary: denies: urgency, dysuria Musculoskeletal: denies: back pain, joint swelling, arthralgia Skin: denies: rash, lesions Neurological: denies: headache, weakness, paresthesias Physical Exam - Physical Exam Vital Signs: Vital Signs 05/12/17 06:00 O2 Sat by Pulse 96 Oximetry Physical Exam: GENERAL: The patient is well-developed well-nourished. HENT: Normocephalic. Atraumatic. Patient has moist mucous membranes. EYES: Extraocular motions are intact. Pupils equal reactive to light bilaterally. NECK: Supple. Trachea is midline. CHEST/LUNGS: Coarse breath sounds without chest. There is tachypnea and accessory muscle use. Conversational dyspnea. There is respiratory distress noted. HEART/CARDIOVASCULAR: Regular. There is no tachycardia. There is no gallop rub or murmur. ABDOMEN: Abdomen is soft, nontender. Patient has normal bowel sounds. There is no abdominal distention. SKIN: Skin is warm and dry. NEURO: The patient is awake, alert. The patient is cooperative. The patient has no focal neurologic deficits. MUSCULOSKELETAL: There is no tenderness or deformity. There is no evidence of acute injury. ED Course Vital Signs 05/12/17 06:00 O2 Sat by Pulse 96 Oximetry - ABG Interpretation Ph: [phone] PCO2: 43 PO2: 73 Bicarbonate: 28 Interpretation: normal (with mild hypoxia) - EJ/Peripheral Line Arm R Time Out Performed: Yes Indications: nurses unable to establis Skin Cleansed in Sterile Fashion: Yes Size: 22 Dressing Placed: Tegaderm, tape Patient Tolerated Procedure: well ED Medical Decision Making - Lab Data Result diagrams: 05/12/17 06:23 05/12/17 06:23 - EKG Data -: EKG Interpreted by Me EKG shows normal: sinus rhythm, axis, intervals, QRS complexes, ST-T waves Rate: normal - EKG Data When compared to previous EKG there are: no significant change Interpretation: normal EKG - Radiology Data Radiology results: image reviewed interpreted by me: Chest x-ray shows pulmonary vascular congestion and some pulmonary edema. - Medical Decision Making The patient presented in respiratory distress with audible coarse breath sounds heard without auscultation. There was tachypnea and accessory muscle use and the patient was placed on BiPAP. Once on the BiPAP machine, the patient a longer appears to be in distress but he does have desaturation once he takes the machine off. BNP was greater than 900 and chest x-ray shows pulmonary vascular congestion and some pulmonary edema. EKG did not show any signs of ST elevation [place] and first troponin was negative. The patient will be admitted to the hospital for further evaluation and treatment has been accepted for admission by the hospitalist. - Differential Diagnosis CHF, PE, [place], Pneumonia Critical Care Time: Yes Critical care time in (mins) excluding proc time.: 31 Critical care attestation.: If time is entered above; I have spent that time in minutes in the direct care of this critically ill patient, excluding procedure time. Medical care time was spent on this patient during his initial evaluation, multiple re-evaluations , BiPAP management, ordering interpretation of labs and imaging, starting diuresis, discussion with the hospitalist and disposition planning. Critical Care Time: 31 minutes ED Disposition Clinical Impression: Respiratory distress CHF (congestive heart failure) Qualifiers: Congestive heart failure type: unspecified congestive heart failure type Congestive heart failure chronicity: acute on chronic Qualified Code(s): I50.9 - Heart failure, unspecified Dyspnea Qualifiers: Dyspnea type: shortness of breath Qualified Code(s): R06.02 - Shortness of breath Disposition: 09 OP ADMIT IP TO THIS HOSP Is pt being admited?: Yes Condition: Fair Referrals: PRIMARY CARE,MD [Primary Care Provider] - 3-5 Days Time of Disposition: 10:28
[2017-05-12 06:35] LABS: Basophils % (Auto) 0.4 % (0.0-1.8); Eosinophils % (Auto) 0.4 % (0.0-4.3); Hematocrit 27.7 % (35.5-45.6); Hemoglobin 9.2 gm/dl (11.8-15.2); Mean Corpuscular HGB Conc 33 % (32-34); Mean Corpuscular Hemoglobin 30 pg (28-32); Mean Corpuscular Volume 91 fl (84-94); Platelet Count 255 K/mm3 (140-440); Red Blood Count 3.06 M/mm3 (3.65-5.03); Red Cell Distribution Width 17.8 % (13.2-15.2); White Blood Count 10.3 K/mm3 (4.5-11.0)
[2017-05-12 06:54] LABS: Calcium 8.7 mg/dL (8.4-10.2); Chloride 96.1 mmol/L (98-107)
[2017-05-12 06:58] LABS: Potassium 5.1 mmol/L (3.6-5.0)
[2017-05-12 07:16] LABS: INR 1.07 (0.87-1.13)
[2017-05-12 07:17] LABS: Partial Thromboplastin Time 37.2 Sec. (24.2-36.6)
[2017-05-12] MEDS ORDERED: LASIX IV ONE (07:23)
[2017-05-12] MEDS ORDERED: BABY ASPIRIN PO ONE (07:23)
[2017-05-12] MEDS ORDERED: PROVENTIL IH PRN ×2 (09:34→12:00)
[2017-05-12] MEDS ORDERED: TYLENOL PO PRN (09:34)
[2017-05-12] MEDS ORDERED: DULCOLAX PR PRN (09:34)
--- NOTE | 2017-05-12 09:40 | History and Physical Report ---
<FERNANDA HAWKINS - Last Filed: 05/12/17 13:58> History of Present Illness Date of examination: 05/12/17 Date of admission: 05/12/2017 Chief complaint: shortness of breath History of present illness: Patient is a 71-year-old male with past medical history significant for COPD, PA status post CABG, CHF presented,who presents to the emergency department with complaining of shortness of breath. Until , patient was at her normal baseline state of health. Patient developed difficulty of breathing yesterday and he has had progressive worsening of shortness of breath. This morning while going to the bathroom, shortly thereafter, he felt like he could not catch his breath and got worried so his daughter friend brought him to the Emergency Department. He is on home oxygen 3L-4LNC. 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 Patient denies she has had no fevers, chills, or night sweats. No hx of recurrent pneumonia. He has no sick contact, TB exposure. Past History Past Medical History: COPD, heart failure Past Surgical History: Other (PA status post CABG) Social history: denies: smoking, alcohol abuse Family history: hypertension Medications and Allergies Allergies Allergy/AdvReac Type Severity Reaction Status Date / Time Penicillins Allergy Unknown Verified 10/20/16 16:37 milk AdvReac Nausea Verified 05/12/17 08:57 Home Medications Medication Instructions Recorded Confirmed Last Taken Type HYDROcodone/APAP 5-325 [[place] 2 each PO Q6H PRN #45 tablet 09/08/14 05/12/17 1 Day Ago Rx 5-325 mg TAB] ~10/19/16 2 ALBUTEROL NEB's [Proventil 0.083% 2.5 mg IH TID PRN #30 nebu 11/10/16 05/12/17 Unknown Rx NEBS] Aspirin EC [Aspirin Enteric Coated 81 mg PO QDAY #30 tablet 11/10/16 05/12/17 Unknown Rx TAB] Gabapentin [Neurontin] 300 mg PO BID #60 capsule 11/10/16 05/12/17 Unknown Rx Home Oxygen @ 3lpm 2.5 l INHALATION DAILY #7 11/10/16 05/12/17 Unknown Rx Levothyroxine [Synthroid] 100 mcg PO QAM #30 tablet 11/10/16 05/12/17 Unknown Rx Tamsulosin [Flomax] 0.4 mg PO QDAY #30 capsule 11/10/16 05/12/17 Unknown Rx Zolpidem [Ambien] 10 mg PO QHS #30 tablet 11/10/16 05/12/17 Unknown Rx Ipratropium/Albuter (Nf) 2 puff IH QID 05/12/17 05/12/17 Unknown History [Combivent (Nf)] LORazepam [Ativan] 1 mg PO BID 05/12/17 05/12/17 Unknown History PARoxetine [Paxil] 40 mg PO DAILY 05/12/17 05/12/17 Unknown History Prednisone [predniSONE (Ghansyham) ER 5 mg PO QDAY 05/12/17 05/12/17 Unknown History TAB] Sennosides [Senna] 8.6 mg PO DAILY 05/12/17 05/12/17 Unknown History Sulfamethoxazole/Trimethoprim 1 each PO BID 05/12/17 05/12/17 Unknown History [Bactrim DS TAB] Review of Systems Constitutional: no weight loss, no weight gain, no fever, no chills Ears, nose, mouth and throat: no decreased hearing, no nose pain, no nasal congestion Cardiovascular: shortness of breath, dyspnea on exertion, no chest pain, no orthopnea, no palpitations Respiratory: shortness of breath, dyspnea on exertion, congestion Gastrointestinal: no diarrhea, no constipation, no change in bowel habits Genitourinary Male: no discharge, no urinary frequency, no urinary hesitancy, no nocturia Rectal: no incontinence, no bleeding Musculoskeletal: no shooting arm pain, no arm numbness/tingling, no shooting leg pain, no leg numbness/tingling Integumentary: no sores, no wounds, no jaundice Neurological: no parathesias, no tingling, no seizures, no syncope Psychiatric: no change in appetite, no change in libido, no suicidal ideation Endocrine: no polyphagia, no excessive thirst, no polydipsia, no polyuria Hematologic/Lymphatic: no easy bruising, no easy bleeding Allergic/Immunologic: no urticaria, no allergic rhinitis Exam - Constitutional Vitals: Temp Pulse Resp BP Pulse Ox 103 H 29 H 131/70 97 05/12/17 08:01 05/12/17 08:01 05/12/17 08:01 05/12/17 07:30 General appearance: Present: mild distress, other (on BiPAP 35% with SPO2 >93%) - EENT Eyes: Present: PERRL ENT: hearing intact - Neck Neck: Present: supple - Respiratory Respiratory effort: normal Respiratory: bilateral: rales, wheezing - Cardiovascular Rhythm: regular Heart Sounds: Present: S1 & S2 - Abdominal General gastrointestinal: Present: soft, non-tender Male genitourinary: Present: deferred - Rectal Rectal Exam: deferred - Integumentary Integumentary: Present: clear, warm, dry - Musculoskeletal Musculoskeletal: strength equal bilaterally - Psychiatric Psychiatric: agitated - Neurologic Neurologic: moves all extremities - Allied Health Allied health notes reviewed: nursing Results - Labs CBC & Chem 7: 05/12/17 06:23 05/12/17 06:23 Labs: Laboratory Last Values WBC 10.3 K/mm3 (4.5-11.0) 05/12/17 06:23 RBC 3.06 M/mm3 (3.65-5.03) L 05/12/17 06:23 Hgb 9.2 gm/dl (11.8-15.2) L 05/12/17 06:23 Hct 27.7 % (35.5-45.6) L 05/12/17 06:23 MCV 91 fl (84-94) 05/12/17 06:23 MCH 30 pg (28-32) 05/12/17 06:23 MCHC 33 % (32-34) 05/12/17 06:23 RDW 17.8 % (13.2-15.2) H 05/12/17 06:23 Plt Count 255 K/mm3 (140-440) 05/12/17 06:23 Lymph % (Auto) 14.2 % (13.4-35.0) 05/12/17 06:23 [place] % (Auto) 9.2 % (0.0-7.3) H 05/12/17 06:23 Eos % (Auto) 0.4 % (0.0-4.3) 05/12/17 06:23 Baso % (Auto) 0.4 % (0.0-1.8) 05/12/17 06:23 Lymph # 1.5 K/mm3 (1.2-5.4) 05/12/17 06:23 [place] # 0.9 K/mm3 (0.0-0.8) H 05/12/17 06:23 Eos # 0.0 K/mm3 (0.0-0.4) 05/12/17 06:23 Baso # 0.0 K/mm3 (0.0-0.1) 05/12/17 06:23 Seg Neutrophils % 75.8 % (40.0-70.0) H 05/12/17 06:23 Seg Neutrophils # 7.8 K/mm3 (1.8-7.7) H 05/12/17 06:23 PT 14.5 Sec. (12.2-14.9) 05/12/17 06:45 INR 1.07 (0.87-1.13) 05/12/17 06:45 APTT 37.2 Sec. (24.2-36.6) H 05/12/17 06:45 D-Dimer 515.21 ng/mlDDU (0-234) H 05/12/17 06:45 Sodium 136 mmol/L (137-145) L 05/12/17 06:23 Potassium 5.1 mmol/L (3.6-5.0) H 05/12/17 06:23 Chloride 96.1 mmol/L (98-107) L 05/12/17 06:23 Carbon Dioxide 25 mmol/L (22-30) 05/12/17 06:23 Anion Gap 20 mmol/L 05/12/17 06:23 BUN 18 mg/dL (9-20) 05/12/17 06:23 Creatinine 1.2 mg/dL (0.8-1.5) 05/12/17 06:23 Estimated GFR 59 ml/min 05/12/17 06:23 BUN/Creatinine Ratio 15 % 05/12/17 06:23 Glucose 104 mg/dL (75-100) H 05/12/17 06:23 Calcium 8.7 mg/dL (8.4-10.2) 05/12/17 06:23 Troponin T 0.013 ng/mL (0.00-0.029) 05/12/17 06:23 NT-Pro-B Natriuret Pep 911.2 pg/mL (0-900) H 05/12/17 06:23 Assessment and Plan Assessment and plan: Patient is a 71-year-old male with past medical history significant for COPD, PA status post CABG, CHF presented,who presents to the emergency department with complaining of shortness of breath. Acute on chronic respiratory failure with hypoxia He is on home oxygen 3L-4LNC Patient oxygen saturation improved with BiPAP 35%; currently SPO2 98%. No acute respiratory distress noted. Aggressive Nebulizers/Inhalers ABG when necessary Oxygen supplement Supportive care Acute on chronic diastolic congestive heart failure/pulmonary edema Echo ordered Started on IV Diuresis, beta blockers and ACEI/ARB Strict I&O's and daily weights Low-sodium/cardiac diet/fluid restriction Closely monitor electrolytes Cardiology evaluation Acute COPD exacerbation Continue on Duoneb every 6 hours Started on IV steroid Solumedrol Initiated empiric IV Levaquin Oxygen as necessary Hypertensive urgency Continue home antihypertensive medications Closely monitor blood pressure Elevated d-dimer Patient has elevated D-dimer on perivious labs actually this is the lowest one comparing to the old labs. Closely monitor Mild Hyperkalemia Most likely due to poor oral intake Closely monitor electrolytes DVT prophylaxis Heparin Advance Directives: Yes VTE prophylaxis?: Chemical Contraindication Mechanical VTE Prophylaxis: Treatment Not Indicated Plan of care discussed with patient/family: Yes <DAVID EDWARDS - Last Filed: 05/12/17 16:58> History of Present Illness Date of admission: 05/12/17 09:34 Medications and Allergies Active Meds: Active Medications Acetaminophen (Tylenol) 650 mg PO Q4H PRN PRN Reason: Pain MILD(1-3)/Fever >100.5/SINGER Albuterol (Proventil) 2.5 mg IH Q4HRT PRN PRN Reason: Shortness Of Breath Albuterol/Ipratropium (Duoneb *Not For Prn Use*) 1 ampul IH Q6HRT [facility] Last Admin: 05/12/17 16:07 Dose: 1 ampul Arformoterol Tartrate (Brovana Nebu) 15 mcg IH Q12HRT [facility] Aspirin (Halfprin Ec) 81 mg PO QDAY [facility] Bisacodyl (Dulcolax) 10 mg [place] QDAY PRN PRN Reason: Constipation unrelieved by MOM Budesonide (Pulmicort) 0.5 mg IH Q12HRT [facility] Enoxaparin Sodium (Lovenox) 40 mg SUB-Q QDAY [facility] Last Admin: 05/12/17 16:38 Dose: Not Given Furosemide (Lasix) 20 mg IV 0600,1800 [facility] Gabapentin (Neurontin) 300 mg PO BID [facility] Last Admin: 05/12/17 16:38 Dose: Not Given Guaifenesin (Mucinex Er) 600 mg PO BID [facility] Levofloxacin/Dextrose (Levaquin 750mg/150ml) 750 mg in 150 mls @ 100 mls/hr IV Q24HR [facility] PRN Reason: Protocol Last Admin: 05/12/17 16:38 Dose: Not Given Influenza Virus Vaccine Quadrival (Fluarix Quad 2392-6616(36 Mos+) 0.5 ml IM .ONCE ONE Stop: 05/13/17 12:01 Levothyroxine Sodium (Synthroid) 100 mcg PO DAILY@0600 [facility] Lisinopril (Zestril) 10 mg PO QDAY [facility] Last Admin: 05/12/17 16:38 Dose: Not Given Lorazepam (Ativan) 0.25 mg IV Q4H PRN PRN Reason: Anxiety Methylprednisolone Sodium Succinate (Solu-Medrol) 80 mg IV Q8HR [facility] Last Admin: 05/12/17 16:45 Dose: 80 mg Morphine Sulfate (Morphine) 2 mg IV Q4H PRN PRN Reason: Pain, Moderate (4-6) Ondansetron HCl (Zofran) 4 mg IV Q8H PRN PRN Reason: N/V unrelieved by Reglan Paroxetine HCl (Paxil) 40 mg PO DAILY [facility] Tamsulosin HCl (Flomax) 0.4 mg PO QDAY [facility] Last Admin: 05/12/17 16:38 Dose: Not Given Exam - Constitutional Vitals: Temp Pulse Resp BP Pulse Ox 98.6 F 70 20 130/67 98 05/12/17 16:49 05/12/17 16:49 05/12/17 16:49 05/12/17 16:49 05/12/17 16:49 Results - Labs CBC & Chem 7: 05/12/17 06:23 05/12/17 06:23 Labs: Laboratory Last Values WBC 10.3 K/mm3 (4.5-11.0) 05/12/17 06:23 RBC 3.06 M/mm3 (3.65-5.03) L 05/12/17 06:23 Hgb 9.2 gm/dl (11.8-15.2) L 05/12/17 06:23 Hct 27.7 % (35.5-45.6) L 05/12/17 06:23 MCV 91 fl (84-94) 05/12/17 06:23 MCH 30 pg (28-32) 05/12/17 06:23 MCHC 33 % (32-34) 05/12/17 06:23 RDW 17.8 % (13.2-15.2) H 05/12/17 06:23 Plt Count 255 K/mm3 (140-440) 05/12/17 06:23 Lymph % (Auto) 14.2 % (13.4-35.0) 05/12/17 06:23 [place] % (Auto) 9.2 % (0.0-7.3) H 05/12/17 06:23 Eos % (Auto) 0.4 % (0.0-4.3) 05/12/17 06:23 Baso % (Auto) 0.4 % (0.0-1.8) 05/12/17 06:23 Lymph # 1.5 K/mm3 (1.2-5.4) 05/12/17 06:23 [place] # 0.9 K/mm3 (0.0-0.8) H 05/12/17 06:23 Eos # 0.0 K/mm3 (0.0-0.4) 05/12/17 06:23 Baso # 0.0 K/mm3 (0.0-0.1) 05/12/17 06:23 Seg Neutrophils % 75.8 % (40.0-70.0) H 05/12/17 06:23 Seg Neutrophils # 7.8 K/mm3 (1.8-7.7) H 05/12/17 06:23 PT 14.5 Sec. (12.2-14.9) 05/12/17 06:45 INR 1.07 (0.87-1.13) 05/12/17 06:45 APTT 37.2 Sec. (24.2-36.6) H 05/12/17 06:45 D-Dimer 515.21 ng/mlDDU (0-234) H 05/12/17 06:45 POC ABG pH 7.423 (7.35-7.45) 05/12/17 10:15 POC ABG pCO2 43.7 (35-45) 05/12/17 10:15 POC ABG pO2 73 (80-105) L 05/12/17 10:15 POC ABG HCO3 28.6 05/12/17 10:15 POC ABG Total CO2 30 05/12/17 10:15 POC ABG O2 Sat 95 05/12/17 10:15 POC ABG Base Excess 4 05/12/17 10:15 FiO2 35 % 05/12/17 10:15 Sodium 136 mmol/L (137-145) L 05/12/17 06:23 Potassium 5.1 mmol/L (3.6-5.0) H 05/12/17 06:23 Chloride 96.1 mmol/L (98-107) L 05/12/17 06:23 Carbon Dioxide 25 mmol/L (22-30) 05/12/17 06:23 Anion Gap 20 mmol/L 05/12/17 06:23 BUN 18 mg/dL (9-20) 05/12/17 06:23 Creatinine 1.2 mg/dL (0.8-1.5) 05/12/17 06:23 Estimated GFR 59 ml/min 05/12/17 06:23 BUN/Creatinine Ratio 15 % 05/12/17 06:23 Glucose 104 mg/dL (75-100) H 05/12/17 06:23 Calcium 8.7 mg/dL (8.4-10.2) 05/12/17 06:23 Troponin T 0.013 ng/mL (0.00-0.029) 05/12/17 06:23 NT-Pro-B Natriuret Pep 911.2 pg/mL (0-900) H 05/12/17 06:23 Assessment and Plan Assessment and plan: I saw and evaluated the patient. I agree with the findings and the plan of care as documented in the Nurse Practitioner's~note, with the following corrections and additions. Discussed with daughter at bedside. Remains full code at this time. Will await dicussion with Pulmonary. Patient appears to have been in palative care and not full hospice
[2017-05-12] MEDS ORDERED: COMBIVENT INHALATION SCH (09:45)
[2017-05-12] MEDS ORDERED: HALFPRIN EC PO SCH (10:00)
[2017-05-12] MEDS ORDERED: SYNTHROID PO SCH (10:00)
[2017-05-12 10:17] LABS: ISTAT Base Excess 4; ISTAT HCO3 28.6; ISTAT PCO2 43.7 (35-45); ISTAT PH 7.423 (7.35-7.45); ISTAT PO2 73 (80-105); ISTAT SITE 3; ISTAT SO2 95; ISTAT TCO2 30
[2017-05-12] MEDS: LEVAQUIN 750MG/150ML 750 MG/150 ML BAG IV SCH ×2 (11:25→16:38)
--- NOTE | 2017-05-12 13:49 | Consultation ---
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 He is followed in our office by Dr. Alfaro. He presented with c/o SOB above baseline, nasal drainage, bilateral eye redness and drainage, fever and chills since Thursday evening. Pt's daughter in law at bedside states that at 3AM this morning, pt was having a great deal of difficulty breathing and was becoming "delirious". Pt has been on palliative care and pt's daughter in law contacted pt's palliative care RN who recommended that pt report to ED for further eval/management. Per pt's daughter in law, following arrival in ED, pt was placed on BIPAP and was noted to have immediate improvement in his mental status. Admission CXR concerning for RLL PNA. On evaluation, pt is on BIPAP. He denies any cough, chest pain, palpitations, n/v, diaphoresis, dizziness or syncope. Echo done in the office on 02/29/2016 revealed mild to moderate LVH, EF 50 - 55% , impaired relaxation, no pulmonary HTN. Lexiscan MPI stress test done on 02/29/2016 revealed no evidence of ischemia. Past History Past Medical History: anemia, CAD, COPD, diabetes, heart failure, hypertension, other (chronic respiratory failure on home O2) Past Surgical History: CABG Social history: lives with family. denies: smoking, alcohol abuse Family history: hypertension Medications and Allergies Allergies Allergy/AdvReac Type Severity Reaction Status Date / Time Penicillins Allergy Unknown Verified 10/20/16 16:37 milk AdvReac Nausea Verified 05/12/17 08:57 Home Medications Medication Instructions Recorded Confirmed Last Taken Type HYDROcodone/APAP 5-325 [[place] 2 each PO Q6H PRN #45 tablet 09/08/14 05/12/17 1 Day Ago Rx 5-325 mg TAB] ~10/19/16 2 ALBUTEROL NEB's [Proventil 0.083% 2.5 mg IH TID PRN #30 nebu 11/10/16 05/12/17 Unknown Rx NEBS] Aspirin EC [Aspirin Enteric Coated 81 mg PO QDAY #30 tablet 11/10/16 05/12/17 Unknown Rx TAB] Gabapentin [Neurontin] 300 mg PO BID #60 capsule 11/10/16 05/12/17 Unknown Rx Home Oxygen @ 3lpm 2.5 l INHALATION DAILY #7 11/10/16 05/12/17 Unknown Rx Levothyroxine [Synthroid] 100 mcg PO QAM #30 tablet 11/10/16 05/12/17 Unknown Rx Tamsulosin [Flomax] 0.4 mg PO QDAY #30 capsule 11/10/16 05/12/17 Unknown Rx Zolpidem [Ambien] 10 mg PO QHS #30 tablet 11/10/16 05/12/17 Unknown Rx Ipratropium/Albuter (Nf) 2 puff IH QID 05/12/17 05/12/17 Unknown History [Combivent (Nf)] LORazepam [Ativan] 1 mg PO BID 05/12/17 05/12/17 Unknown History PARoxetine [Paxil] 40 mg PO DAILY 05/12/17 05/12/17 Unknown History Prednisone [predniSONE (Ghanshyam) ER 5 mg PO QDAY 05/12/17 05/12/17 Unknown History TAB] Sennosides [Senna] 8.6 mg PO DAILY 05/12/17 05/12/17 Unknown History Sulfamethoxazole/Trimethoprim 1 each PO BID 05/12/17 05/12/17 Unknown History [Bactrim DS TAB] Active Meds: Active Medications Acetaminophen (Tylenol) 650 mg PO Q4H PRN PRN Reason: Pain MILD(1-3)/Fever >100.5/SINGER Albuterol (Proventil) 2.5 mg IH Q4HRT PRN PRN Reason: Shortness Of Breath Albuterol/Ipratropium (Duoneb *Not For Prn Use*) 1 ampul IH Q6HRT [facility] Aspirin (Halfprin Ec) 81 mg PO QDAY [facility] Bisacodyl (Dulcolax) 10 mg [place] QDAY PRN PRN Reason: Constipation unrelieved by MOM Enoxaparin Sodium (Lovenox) 40 mg SUB-Q QDAY [facility] Furosemide (Lasix) 40 mg IV 0600,1800 [facility] Gabapentin (Neurontin) 300 mg PO BID [facility] Levofloxacin/Dextrose (Levaquin 750mg/150ml) 750 mg in 150 mls @ 100 mls/hr IV Q24HR [facility] PRN Reason: Protocol Last Admin: 05/12/17 11:25 Dose: 100 mls/hr Influenza Virus Vaccine Quadrival (Fluarix Quad [id number](36 Mos+) 0.5 ml IM .ONCE ONE Stop: 05/13/17 12:01 Levothyroxine Sodium (Synthroid) 100 mcg PO DAILY@0600 [facility] Lisinopril (Zestril) 10 mg PO QDAY [facility] Methylprednisolone Sodium Succinate (Solu-Medrol) 80 mg IV Q8HR [facility] Morphine Sulfate (Morphine) 2 mg IV Q4H PRN PRN Reason: Pain, Moderate (4-6) Ondansetron HCl (Zofran) 4 mg IV Q8H PRN PRN Reason: N/V unrelieved by Reglan Paroxetine HCl (Paxil) 40 mg PO DAILY [facility] Tamsulosin HCl (Flomax) 0.4 mg PO QDAY [facility] Review of Systems Constitutional: fever, chills, no weight loss, no weight gain, no sweats Eyes: bilateral: discharge, other (redness) Ears, nose, mouth and throat: nasal discharge, no ear pain, no nose pain, no sinus pressure, no sinus pain, no dental pain, no mouth pain, no dysphagia, no hoarseness, no sore throat Cardiovascular: shortness of breath, dyspnea on exertion, high blood pressure, no chest pain, no orthopnea, no palpitations, no rapid/irregular heart beat, no edema, no syncope, no lightheadedness, no paroxysmal nocturnal dyspnea, no leg edema Respiratory: shortness of breath, dyspnea on exertion, no cough, no excessive sputum, no pain on inspiration Gastrointestinal: no abdominal pain, no nausea, no vomiting, no diarrhea, no constipation, no change in bowel habits Genitourinary Male: no hematuria, no flank pain, no discharge, no urinary frequency, no urinary hesitancy Musculoskeletal: no neck stiffness, no neck pain, no shooting arm pain, no arm numbness/tingling, no low back pain, no shooting leg pain Integumentary: no sores, no wounds Neurological: no head injury, no paralysis, no weakness, no parathesias, no numbness, no tingling, no seizures, no syncope Psychiatric: no anxiety Endocrine: no cold intolerance, no heat intolerance Hematologic/Lymphatic: no easy bruising, no easy bleeding, no lymphadenopathy Allergic/Immunologic: no urticaria, no persistent infections Physical Examination Vital Signs Pulse Ox 96 05/12/17 06:00 General appearance: no acute distress, other (on BIPAP) HEENT: Positive: PERRL, Normocephaly, Mucus Membranes Moist Neck: Positive: neck supple, trachea midline Cardiac: Positive: Reg Rate and Rhythm, S1/S2 Lungs: Positive: Rales, Rhonchi Neuro: Positive: Grossly Intact Abdomen: Positive: Unremarkable, Soft, Active Bowel Sounds. Negative: Tender Skin: Positive: Clear. Negative: Rash, Wound Musculoskeletal: No Fluid Collection, No Pain, Normal Range of Motion Extremities: Absent: edema Results 05/12/17 06:23 05/12/17 06:23 Coagulation 05/12/17 Range/Units 06:45 PT 14.5 (12.2-14.9) Sec. INR 1.07 (0.87-1.13) APTT 37.2 H (24.2-36.6) Sec. CBC 05/12/17 Range/Units 06:23 WBC 10.3 (4.5-11.0) K/mm3 RBC 3.06 L (3.65-5.03) M/mm3 Hgb 9.2 L (11.8-15.2) gm/dl Hct 27.7 L (35.5-45.6) % Plt Count 255 (140-440) K/mm3 Lymph # 1.5 (1.2-5.4) K/mm3 [place] # 0.9 H (0.0-0.8) K/mm3 Eos # 0.0 (0.0-0.4) K/mm3 Baso # 0.0 (0.0-0.1) K/mm3 Comprehensive Metabolic Panel 05/12/17 Range/Units 06:23 Sodium 136 L (137-145) mmol/L Potassium 5.1 H (3.6-5.0) mmol/L Chloride 96.1 L (98-107) mmol/L Carbon Dioxide 25 (22-30) mmol/L BUN 18 (9-20) mg/dL Creatinine 1.2 (0.8-1.5) mg/dL Glucose 104 H (75-100) mg/dL Calcium 8.7 (8.4-10.2) mg/dL - Imaging and Cardiology Echo: pending, report reviewed (02/29/2016 revealed mild to moderate LVH, EF 50 - 55%, impaired relaxation, no pulmonary HTN) EKG: report reviewed, image reviewed EKG interpretations - Telemetry EKG Rhythm: Sinus Rhythm - EKG Sinus rhythms and dysrhythmias: sinus rhythm Assessment and Plan Assessment: Acute on chronic respiratory failure - requiring BIPAP RLL PNA COPD exacerbation Acute diastolic heart failure - mild component Elevated DDimer - has also been elevated on prior admissions with chest CTA & V/ Q scan negative for PE; further eval per primary/pulmonary CAD, s/p CABG HTN DM PVD Anemia Plan: Decrease diuretics. Cont all other present management. Avoid BB at this time given COPD exacerbation and respiratory failure. F/u echo. Await pulmonary consultation. Assessment and plan reviewed with pt and pt's family at bedside. The patient has been seen in conjunction with Dr. NADINE Blankenship who agrees with the assessment and plan of care.
--- NOTE | 2017-05-12 14:19 | Consultation ---
History of Present Illness Consult date: 05/12/17 Requesting physician: FERNANDA HAWKINS Reason for consult: pneumonia History of present illness: 72 yo with COPD and chronic respiratory failure, admitted w/ increased SOB, wheezing, chest congestion without sputum production, low-grade fevers, runny nose/eyes. Zyrtec did not help. On chronic Bactrim and prednisone 5mg daily to suppress COPD exacerbations/bronchitis. Was on hospice at home but rescinded it to come to ED. Now arousable on BIPAP, doing better per family. Active Medications Acetaminophen (Tylenol) 650 mg PO Q4H PRN PRN Reason: Pain MILD(1-3)/Fever >100.5/SINGER Albuterol (Proventil) 2.5 mg IH Q4HRT PRN PRN Reason: Shortness Of Breath Albuterol/Ipratropium (Duoneb *Not For Prn Use*) 1 ampul IH Q6HRT LUIS CARLOS Arformoterol Tartrate (Brovana Nebu) 15 mcg IH Q12HRT LUIS CARLOS Aspirin (Halfprin Ec) 81 mg PO QDAY LUIS CARLOS Bisacodyl (Dulcolax) 10 mg AL QDAY PRN PRN Reason: Constipation unrelieved by MOM Budesonide (Pulmicort) 0.5 mg IH Q12HRT LUIS CARLOS Enoxaparin Sodium (Lovenox) 40 mg SUB-Q QDAY LUIS CARLOS Furosemide (Lasix) 40 mg IV 0600,1800 LUIS CARLOS Gabapentin (Neurontin) 300 mg PO BID LUIS CARLOS Guaifenesin (Mucinex Er) 600 mg PO BID LUIS CARLOS Levofloxacin/Dextrose (Levaquin 750mg/150ml) 750 mg in 150 mls @ 100 mls/hr IV Q24HR LUIS CARLOS PRN Reason: Protocol Last Admin: 05/12/17 11:25 Dose: 100 mls/hr Influenza Virus Vaccine Quadrival (Fluarix Quad [id number](36 Mos+) 0.5 ml IM .ONCE ONE Stop: 05/13/17 12:01 Levothyroxine Sodium (Synthroid) 100 mcg PO DAILY@0600 LUIS CARLOS Lisinopril (Zestril) 10 mg PO QDAY [facility] Methylprednisolone Sodium Succinate (Solu-Medrol) 80 mg IV Q8HR LUIS CARLOS Morphine Sulfate (Morphine) 2 mg IV Q4H PRN PRN Reason: Pain, Moderate (4-6) Ondansetron HCl (Zofran) 4 mg IV Q8H PRN PRN Reason: N/V unrelieved by Reglan Paroxetine HCl (Paxil) 40 mg PO DAILY LUIS CARLOS Tamsulosin HCl (Flomax) 0.4 mg PO QDAY LUIS CARLOS Past History Past Medical History: anemia, CAD, COPD, diabetes, heart failure, hypertension, other (chronic respiratory failure on home O2) Past Surgical History: CABG Social history: lives with family. denies: smoking, alcohol abuse Family history: hypertension Medications and Allergies Allergies Allergy/AdvReac Type Severity Reaction Status Date / Time Penicillins Allergy Unknown Verified 10/20/16 16:37 milk AdvReac Nausea Verified 05/12/17 08:57 Home Medications Medication Instructions Recorded Confirmed Last Taken Type HYDROcodone/APAP 5-325 [[place] 2 each PO Q6H PRN #45 tablet 09/08/14 05/12/17 1 Day Ago Rx 5-325 mg TAB] ~10/19/16 2 ALBUTEROL NEB's [Proventil 0.083% 2.5 mg IH TID PRN #30 nebu 11/10/16 05/12/17 Unknown Rx NEBS] Aspirin EC [Aspirin Enteric Coated 81 mg PO QDAY #30 tablet 11/10/16 05/12/17 Unknown Rx TAB] Gabapentin [Neurontin] 300 mg PO BID #60 capsule 11/10/16 05/12/17 Unknown Rx Home Oxygen @ 3lpm 2.5 l INHALATION DAILY #7 11/10/16 05/12/17 Unknown Rx Levothyroxine [Synthroid] 100 mcg PO QAM #30 tablet 11/10/16 05/12/17 Unknown Rx Tamsulosin [Flomax] 0.4 mg PO QDAY #30 capsule 11/10/16 05/12/17 Unknown Rx Zolpidem [Ambien] 10 mg PO QHS #30 tablet 11/10/16 05/12/17 Unknown Rx Ipratropium/Albuter (Nf) 2 puff IH QID 05/12/17 05/12/17 Unknown History [Combivent (Nf)] LORazepam [Ativan] 1 mg PO BID 05/12/17 05/12/17 Unknown History PARoxetine [Paxil] 40 mg PO DAILY 05/12/17 05/12/17 Unknown History Prednisone [predniSONE (Ghanshyam) ER 5 mg PO QDAY 05/12/17 05/12/17 Unknown History TAB] Sennosides [Senna] 8.6 mg PO DAILY 05/12/17 05/12/17 Unknown History Sulfamethoxazole/Trimethoprim 1 each PO BID 05/12/17 05/12/17 Unknown History [Bactrim DS TAB] Active Meds: Active Medications Acetaminophen (Tylenol) 650 mg PO Q4H PRN PRN Reason: Pain MILD(1-3)/Fever >100.5/SINGER Albuterol (Proventil) 2.5 mg IH Q4HRT PRN PRN Reason: Shortness Of Breath Albuterol/Ipratropium (Duoneb *Not For Prn Use*) 1 ampul IH Q6HRT [facility] Arformoterol Tartrate (Brovana Nebu) 15 mcg IH Q12HRT LUIS CARLOS Aspirin (Halfprin Ec) 81 mg PO QDAY LUIS CARLOS Bisacodyl (Dulcolax) 10 mg AL QDAY PRN PRN Reason: Constipation unrelieved by [facility] Budesonide (Pulmicort) 0.5 mg IH Q12HRT [facility] Enoxaparin Sodium (Lovenox) 40 mg SUB-Q QDAY [facility] Furosemide (Lasix) 40 mg IV 0600,1800 [facility] Gabapentin (Neurontin) 300 mg PO BID LUIS CARLOS Guaifenesin (Mucinex Er) 600 mg PO BID LUIS CARLOS Levofloxacin/Dextrose (Levaquin 750mg/150ml) 750 mg in 150 mls @ 100 mls/hr IV Q24HR LUIS CARLOS PRN Reason: Protocol Last Admin: 05/12/17 11:25 Dose: 100 mls/hr Influenza Virus Vaccine Quadrival (Fluarix Quad [id number](36 Mos+) 0.5 ml IM .ONCE ONE Stop: 05/13/17 12:01 Levothyroxine Sodium (Synthroid) 100 mcg PO DAILY@0600 LUIS CARLOS Lisinopril (Zestril) 10 mg PO QDAY [facility] Methylprednisolone Sodium Succinate (Solu-Medrol) 80 mg IV Q8HR LUIS CARLOS Morphine Sulfate (Morphine) 2 mg IV Q4H PRN PRN Reason: Pain, Moderate (4-6) Ondansetron HCl (Zofran) 4 mg IV Q8H PRN PRN Reason: N/V unrelieved by Reglan Paroxetine HCl (Paxil) 40 mg PO DAILY LUIS CARLOS Tamsulosin HCl (Flomax) 0.4 mg PO QDAY LUIS CARLOS Review of Systems All systems: negative Physical Examination Vital signs: Vital Signs Pulse Ox 96 05/12/17 06:00 Vital Signs - 24 hr 05/12/17 05/12/17 05/12/17 06:00 06:30 06:33 Temperature Pulse Rate 132 H Pulse Rate [ 115 H Bilateral Throughout] Respiratory 28 H Rate Respiratory 28 H Rate [Bilateral Throughout] Blood Pressure Blood Pressure [Right] O2 Sat by Pulse 96 97 Oximetry 05/12/17 05/12/17 05/12/17 07:00 07:30 08:01 Temperature Pulse Rate 95 H 92 H 103 H Pulse Rate [ Bilateral Throughout] Respiratory 28 H 21 29 H Rate Respiratory Rate [Bilateral Throughout] Blood Pressure 122/66 111/73 131/70 Blood Pressure [Right] O2 Sat by Pulse 95 97 Oximetry 05/12/17 05/12/17 05/12/17 08:30 09:00 09:31 Temperature Pulse Rate 98 H 94 H 107 H Pulse Rate [ Bilateral Throughout] Respiratory 33 H 26 H 36 H Rate Respiratory Rate [Bilateral Throughout] Blood Pressure 137/65 122/64 144/119 Blood Pressure [Right] O2 Sat by Pulse 97 96 89 Oximetry 05/12/17 05/12/17 05/12/17 10:00 10:30 11:00 Temperature Pulse Rate 85 82 83 Pulse Rate [ Bilateral Throughout] Respiratory 28 H 25 H 30 H Rate Respiratory Rate [Bilateral Throughout] Blood Pressure 126/69 122/64 151/77 Blood Pressure [Right] O2 Sat by Pulse 95 94 96 Oximetry 05/12/17 05/12/17 11:45 12:22 Temperature 99.0 F Pulse Rate 80 75 Pulse Rate [ Bilateral Throughout] Respiratory 30 H 23 Rate Respiratory Rate [Bilateral Throughout] Blood Pressure Blood Pressure 114/65 [Right] O2 Sat by Pulse 97 97 Oximetry General appearance: no acute distress, alert Eyes: non-icteric ENT: oropharynx moist Neck: supple Effort: mildly labored Ascultation: Bilateral: wheezes, rhonchi Cardiovascular: regular rate and rhythm (no mrg) Gastrointestinal: normoactive bowel sounds, soft, non-tender, non-distended Integumentary: normal Extremities: no cyanosis, pink and warm, edema (1+ bilateral LE edema) normal mental status, non-focal exam, pupils equal and round, CN II-XII normal mood appropriate, affect normal Results - Laboratory Findings CBC and BMP: 05/12/17 06:23 05/12/17 06:23 ABG POC ABG pH 7.423 (7.35-7.45) 05/12/17 10:15 POC ABG pCO2 43.7 (35-45) 05/12/17 10:15 POC ABG pO2 73 (80-105) L 05/12/17 10:15 POC ABG HCO3 28.6 05/12/17 10:15 POC ABG Total CO2 30 05/12/17 10:15 POC ABG O2 Sat 95 05/12/17 10:15 PT/INR, D-dimer PT 14.5 Sec. (12.2-14.9) 05/12/17 06:45 INR 1.07 (0.87-1.13) 05/12/17 06:45 D-Dimer 515.21 ng/mlDDU (0-234) H 05/12/17 06:45 Abnormal lab findings: Abnormal Labs 05/12/17 05/12/17 05/12/17 06:23 06:23 06:45 RBC 3.06 L Hgb 9.2 L Hct 27.7 L RDW 17.8 H [place] % (Auto) 9.2 H [place] # 0.9 H Seg Neutrophils % 75.8 H Seg Neutrophils # 7.8 H APTT 37.2 H D-Dimer POC ABG pO2 Sodium 136 L Potassium 5.1 H Chloride 96.1 L Glucose 104 H NT-Pro-B Natriuret Pep 911.2 H 05/12/17 05/12/17 06:45 10:15 RBC Hgb Hct RDW [place] % (Auto) [place] # Seg Neutrophils % Seg Neutrophils # APTT D-Dimer 515.21 H POC ABG pO2 73 L Sodium Potassium Chloride Glucose NT-Pro-B Natriuret Pep - Diagnostic Findings Chest x-ray: report reviewed, image reviewed (RLL consolidation) Assessment and Plan Imp: 1. RLL CAP 2. Bronchiectasis with acute lower respiratory tract infection/exacerbation 3. Tracheobronchomalacia 4. Poor airway clearance 2/2 #'s 2 and 3 5. COPD exac. 6. A/C respiratory failure, hypoxia Rec: 1. Cont. Levaquin IV; sputum grew out Pseudomonas 10/29 but it was sensitive to Levaquin 2. Solumedrol 3. Duonebs 4. Pulmicort/Brovana 5. Await Echo 6. BIPAP PRN 7. Chest PT with vest or manual 8. Mucinex BID 9. Prognosis guarded; full code per family Plan of care reviewed with patient/family, they understand/agree Thanks for the consult. Will follow closely.
[2017-05-12] MEDS: DUONEB *Not for PRN Use IH SCH ×3 (15:30→20:51)
[2017-05-12] MEDS: ZESTRIL PO SCH (16:38)
[2017-05-12] MEDS: FLOMAX PO SCH (16:38)
[2017-05-12] MEDS: NEURONTIN PO SCH ×2 (16:38→21:59)
[2017-05-12] MEDS: LOVENOX SUB-Q SCH (16:38)
[2017-05-12] MEDS ORDERED: LASIX IV SCH (18:00)
[2017-05-12] MEDS: LASIX IV SCH (18:29)
[2017-05-12] MEDS: ATIVAN IV PRN ×2 (18:41→22:45)
[2017-05-12] MEDS: ZOFRAN IV PRN (18:41)
[2017-05-12] MEDS: PULMICORT IH SCH (20:50)
[2017-05-12] MEDS: BROVANA NEBU IH SCH (20:53)
[2017-05-12] MEDS: MUCINEX ER PO SCH (21:59)
--- NOTE | 2017-05-12 22:31 | XRay Report ---
FINAL REPORT EXAM: XRAY CHEST SINGLE VIEW HISTORY: SOB TECHNIQUE: A portable upright view of the chest was submitted. FINDINGS: There are postsurgical changes from previous bypass surgery. Heart size is normal. The lungs are emphysematous. The interstitial markings are prominent bilaterally. There are increased markings along the right heart border inferiorly. A patchy infiltrate cannot be excluded. The skeletal structures reveal anchor sutures in both proximal humeri. Pleural fluid is not seen. IMPRESSION: Emphysematous changes. Questionable patchy infiltrate along the right heart border noted.
[2017-05-13] MEDS: DUONEB *Not for PRN Use IH SCH ×4 (03:15→21:01)
[2017-05-13] MEDS: LASIX IV SCH (05:48)
[2017-05-13 06:16] LABS: Basophils % (Auto) 0.1 % (0.0-1.8); Hematocrit 28.9 % (35.5-45.6); Hemoglobin 9.4 gm/dl (11.8-15.2); Mean Corpuscular HGB Conc 32 % (32-34); Mean Corpuscular Hemoglobin 30 pg (28-32); Mean Corpuscular Volume 91 fl (84-94); Platelet Count 270 K/mm3 (140-440); Red Blood Count 3.18 M/mm3 (3.65-5.03); Red Cell Distribution Width 17.8 % (13.2-15.2); White Blood Count 5.7 K/mm3 (4.5-11.0)
[2017-05-13 06:35] LABS: Calcium 8.9 mg/dL (8.4-10.2); Chloride 94.3 mmol/L (98-107); Potassium 4.4 mmol/L (3.6-5.0)
[2017-05-13] MEDS: PULMICORT IH SCH ×2 (08:22→20:58)
[2017-05-13] MEDS: BROVANA NEBU IH SCH ×2 (08:22→20:58)
[2017-05-13] MEDS ORDERED: SYNTHROID PO SCH (10:00)
[2017-05-13] MEDS ORDERED: [UNRECOGNIZED DRUG - OTHER] INHALATION SCH (10:00)
--- NOTE | 2017-05-13 10:21 | Progress Note ---
Assessment and Plan Assessment and plan: Patient is a 71-year-old male with past medical history significant for COPD, ND status post CABG, CHF presented,who presents to the emergency department with complaining of shortness of breath. Until , patient was at her normal baseline state of health. Patient developed difficulty of breathing yesterday and he has had progressive worsening of shortness of breath. This morning while going to the bathroom, shortly thereafter, he felt like he could not catch his breath and got worried so his daughter friend brought him to the Emergency Department. He is on home oxygen 3L-4LNC. His geotechnical field technician is Dr Rahman and his bath attendant is through [facility] at home. Patient denies she has had no fevers, chills, or night sweats. No hx of recurrent pneumonia. He has no sick contact, TB exposure Acute on chronic respiratory failure with hypoxia He is on home oxygen 3L-4LNC Patient oxygen saturation improved with BiPAP 35%; currently SPO2 98%. No acute respiratory distress noted. Aggressive Nebulizers/Inhalers Patient was on Hospice/Palliative care and family is re-evaluating. ABG when necessary Oxygen supplement Supportive care RLL Pneumonia/ Bronchiectasis No evidence of Sepsis Continue Levaquin based on notation from previous cultures Which grew pseudomonas Send sputum culture Chest PT ordered by pulmonary. Patient has poor airway clearance due to bronchiectasis and tracheomalacia. Tracheomalacia Pulmonary following Acute on chronic diastolic congestive heart failure/pulmonary edema Pending Echo ordered Decreased IV Diuresis dose, and ACEI/ARB. Beta blockers held due to respiratory status. Strict I&O's and daily weights Low-sodium/cardiac diet/fluid restriction Closely monitor electrolytes Cardiology evaluation Acute COPD exacerbation Continue on Duoneb every 6 hours Started on IV steroid Solumedrol will taper down Initiated empiric IV Levaquin Oxygen as necessary Hypertensive urgency Continue home antihypertensive medications Closely monitor blood pressure Elevated d-dimer Patient has elevated D-dimer on pervious labs actually this is the lowest one comparing to the old labs. Closely monitor will check V/Q scan Mild Hyperkalemia Most likely due to poor oral intake Closely monitor electrolytes It appears on discussion we'll pulmonary that the patient was placed on hospice/ palliative care by the geotechnical field technician Dr. Rahman will reevaluate prior to discharge. DVT prophylaxis Heparin History Interval history: Patient seen and examined this morning improved compared to yesterday still with mild respiratory distress noted baseline yet. Requesting for pain medication for chronic joint pains. Hospitalist Physical - Physical exam Narrative exam: VITAL SIGNS: Reviewed. GENERAL: The patient appeared well nourished and normally developed. Vital signs as documented. HEAD: No signs of head trauma. EYES: Pupils are equal. Extraocular motions intact. EARS: Hearing grossly intact. MOUTH: Oropharynx is normal. NECK: No adenopathy, no JVD. CHEST: Chest with crackles breath sounds bilaterally. No wheezes, rales, or rhonchi. CARDIAC: Regular rate and rhythm. S1 and S2, without murmurs, gallops, or rubs. VASCULAR: No Edema. Peripheral pulses normal and equal in all extremities. ABDOMEN: Soft, without detectable tenderness. No sign of distention. No rebound or guarding, and no masses palpated. Bowel Sounds normal. MUSCULOSKELETAL: Good range of motion of all major joints. Extremities without clubbing, cyanosis or edema. NEUROLOGIC EXAM: Alert and oriented x 3. No focal sensory or strength deficits. Speech normal. Follows commands. PSYCHIATRIC: Mood normal. SKIN: No rash or lesions. - Constitutional Vitals: Temp Pulse Resp BP Pulse Ox 97.7 F 94 H 20 144/80 94 05/13/17 08:21 05/13/17 08:21 05/13/17 08:21 05/13/17 08:21 05/13/17 08:21 General appearance: Present: no acute distress, other (on BIPAP) Results - Labs CBC & Chem 7: 05/13/17 04:37 05/13/17 04:37 Labs: Laboratory Last Values WBC 5.7 K/mm3 (4.5-11.0) 05/13/17 04:37 RBC 3.18 M/mm3 (3.65-5.03) L 05/13/17 04:37 Hgb 9.4 gm/dl (11.8-15.2) L 05/13/17 04:37 Hct 28.9 % (35.5-45.6) L 05/13/17 04:37 MCV 91 fl (84-94) 05/13/17 04:37 MCH 30 pg (28-32) 05/13/17 04:37 MCHC 32 % (32-34) 05/13/17 04:37 RDW 17.8 % (13.2-15.2) H 05/13/17 04:37 Plt Count 270 K/mm3 (140-440) 05/13/17 04:37 Lymph % (Auto) 10.4 % (13.4-35.0) L 05/13/17 04:37 [place] % (Auto) 2.5 % (0.0-7.3) 05/13/17 04:37 Eos % (Auto) 0.0 % (0.0-4.3) 05/13/17 04:37 Baso % (Auto) 0.1 % (0.0-1.8) 05/13/17 04:37 Lymph # 0.6 K/mm3 (1.2-5.4) L 05/13/17 04:37 [place] # 0.1 K/mm3 (0.0-0.8) 05/13/17 04:37 Eos # 0.0 K/mm3 (0.0-0.4) 05/13/17 04:37 Baso # 0.0 K/mm3 (0.0-0.1) 05/13/17 04:37 Seg Neutrophils % 87.0 % (40.0-70.0) H 05/13/17 04:37 Seg Neutrophils # 4.9 K/mm3 (1.8-7.7) 05/13/17 04:37 PT 14.5 Sec. (12.2-14.9) 05/12/17 06:45 INR 1.07 (0.87-1.13) 05/12/17 06:45 APTT 37.2 Sec. (24.2-36.6) H 05/12/17 06:45 D-Dimer 515.21 ng/mlDDU (0-234) H 05/12/17 06:45 POC ABG pH 7.423 (7.35-7.45) 05/12/17 10:15 POC ABG pCO2 43.7 (35-45) 05/12/17 10:15 POC ABG pO2 73 (80-105) L 05/12/17 10:15 POC ABG HCO3 28.6 05/12/17 10:15 POC ABG Total CO2 30 05/12/17 10:15 POC ABG O2 Sat 95 05/12/17 10:15 POC ABG Base Excess 4 05/12/17 10:15 FiO2 35 % 05/12/17 10:15 Sodium 141 mmol/L (137-145) 05/13/17 04:37 Potassium 4.4 mmol/L (3.6-5.0) 05/13/17 04:37 Chloride 94.3 mmol/L (98-107) L 05/13/17 04:37 Carbon Dioxide 28 mmol/L (22-30) 05/13/17 04:37 Anion Gap 23 mmol/L 05/13/17 04:37 BUN 26 mg/dL (9-20) H 05/13/17 04:37 Creatinine 1.3 mg/dL (0.8-1.5) 05/13/17 04:37 Estimated GFR 54 ml/min 05/13/17 04:37 BUN/Creatinine Ratio 20 % 05/13/17 04:37 Glucose 134 mg/dL (75-100) H 05/13/17 04:37 Calcium 8.9 mg/dL (8.4-10.2) 05/13/17 04:37 Troponin T 0.013 ng/mL (0.00-0.029) 05/12/17 06:23 NT-Pro-B Natriuret Pep 911.2 pg/mL (0-900) H 05/12/17 06:23
--- NOTE | 2017-05-13 10:22 | XRay Report ---
PORTABLE CHEST INDICATION: Post intubation. COMPARISON: 6:26 AM earlier today. FINDINGS: Portable, frontal chest radiograph, 1:44 PM, 05/12/2017 demonstrates increased, approximately 10 cm right lower lung hazy opacity with obscured right hemidiaphragm. Otherwise stable prominent remainder lung markings with normal cardiomediastinal silhouette, post CABG changes, EKG leads, bilateral shoulder stay sutures and demineralized bones. CONCLUSION: Increased hazy airspace opacity/pneumonia at the right lung base, as described. Specifically, no endotracheal tube noted. Please correlate. Thank you for the opportunity to participate in this patient's care.
[2017-05-13] MEDS: MUCINEX ER PO SCH ×2 (10:40→21:48)
[2017-05-13] MEDS: HALFPRIN EC PO SCH (10:40)
[2017-05-13] MEDS: PAXIL PO SCH (10:40)
[2017-05-13] MEDS: NEURONTIN PO SCH ×2 (10:41→21:48)
[2017-05-13] MEDS: LOVENOX SUB-Q SCH (10:41)
[2017-05-13] MEDS: FLOMAX PO SCH (10:41)
[2017-05-13] MEDS: ZESTRIL PO SCH (10:42)
[2017-05-13] MEDS: LEVAQUIN 750MG/150ML 750 MG/150 ML BAG IV SCH (10:43)
[2017-05-13] MEDS: MORPHINE IV PRN ×2 (11:18→22:00)
--- NOTE | 2017-05-13 11:55 | Progress Note ---
Assessment and Plan Assessment: Acute on chronic respiratory failure - off BiPAP RLL PNA COPD exacerbation Acute diastolic heart failure - mild component Elevated DDimer - has also been elevated on prior admissions with chest CTA & V/ Q scan negative for PE; further eval per primary/pulmonary CAD, s/p CABG HTN DM PVD Anemia Plan: Echo reviewed - EF 50-55%, impaired relaxation, mild dilatation of the aortic root. Cont present cardiac management. Avoid BB at this time given COPD exacerbation and respiratory failure. Assessment and plan reviewed with pt and pt's family at bedside. The patient has been seen in conjunction with Dr. NADINE Blankenship who agrees with the assessment and plan of care. Subjective Date of service: 05/13/17 Principal diagnosis: PNA; COPD; HF Interval history: SOB improving, off BiPAP Objective Last Vital Signs Temp 97.7 F 05/13/17 08:21 Pulse 94 H 05/13/17 10:42 Resp 22 05/13/17 10:00 BP 144/80 05/13/17 10:42 Pulse Ox 94 05/13/17 10:00 - Physical Examination HEENT: Positive: PERRL, Normocephaly, Mucus Membranes Moist Neck: Positive: neck supple, trachea midline Cardiac: Positive: Reg Rate and Rhythm, S1/S2 Lungs: Positive: Rhonchi Neuro: Positive: Grossly Intact Abdomen: Positive: Unremarkable, Soft, Active Bowel Sounds. Negative: Tender Skin: Positive: Clear. Negative: Rash, Wound Musculoskeletal: No Fluid Collection, No Pain, Normal Range of Motion Extremities: Absent: edema - Labs and Meds CBC 05/13/17 Range/Units 04:37 WBC 5.7 (4.5-11.0) K/mm3 RBC 3.18 L (3.65-5.03) M/mm3 Hgb 9.4 L (11.8-15.2) gm/dl Hct 28.9 L (35.5-45.6) % Plt Count 270 (140-440) K/mm3 Lymph # 0.6 L (1.2-5.4) K/mm3 [place] # 0.1 (0.0-0.8) K/mm3 Eos # 0.0 (0.0-0.4) K/mm3 Baso # 0.0 (0.0-0.1) K/mm3 Comprehensive Metabolic Panel 11/29/17 Range/Units 04:37 Sodium 141 (137-145) mmol/L Potassium 4.4 (3.6-5.0) mmol/L Chloride 94.3 L (98-107) mmol/L Carbon Dioxide 28 (22-30) mmol/L BUN 26 H (9-20) mg/dL Creatinine 1.3 (0.8-1.5) mg/dL Glucose 134 H (75-100) mg/dL Calcium 8.9 (8.4-10.2) mg/dL - Imaging and Cardiology EKG: report reviewed, image reviewed Echo: pending, report reviewed (02/29/2016 revealed mild to moderate LVH, EF 50 - 55%, impaired relaxation, no pulmonary HTN) - EKG Sinus rhythms and dysrhythmias: sinus rhythm
[2017-05-13] MEDS ORDERED: Fluarix Quad 2017-2018(36 MOS+ IM ONE (12:00)
--- NOTE | 2017-05-13 14:00 | Nuclear Medicine Report ---
VENTILATION/PERFUSION LUNG SCAN: 05/13/17 CLINICAL: Shortness of breath TECHNIQUE: 15.0 millicuries of xenon-133 was administered by aerosol and 5.0 mCi of technetium 99m MAA was administered intravenously. Comparison is made to the 05/12/17chest x-ray. FINDINGS: Inhalation of Xenon gas demonstrates a normal distribution of the activity throughout both lungs. The wash out phases demonstrates moderate bilateral basal retention of activity. After injection of Technetium 99m macroaggregated albumin gamma camera imaging of the lungs in multiple projections demonstrates a matched right basal perfusion defect which correlates with right basal opacification on the chest x-ray. Otherwise normal pulmonary contours with a homogeneous distribution of activity.No suspicious focal areas of perfusion deficiency are identified. IMPRESSION: Low probability for pulmonary embolus.
--- NOTE | 2017-05-13 14:28 | Progress Note ---
Assessment and Plan Imp: 1. RLL CAP 2. Bronchiectasis with acute lower respiratory tract infection/exacerbation 3. Tracheobronchomalacia 4. Poor airway clearance 2/2 #'s 2 and 3 5. COPD exac. 6. A/C respiratory failure, hypoxia Rec: 1. Cont. Levaquin IV; sputum grew out Pseudomonas 10/29 but it was sensitive to Levaquin; complete ~ 10 days 2. Solumedrol same 3. Duonebs 4. Pulmicort/Brovana 5. Echo report reviewed 6. BIPAP PRN 7. Chest PT with vest or manual 8. Mucinex BID 9. Full code per family; better today Plan of care reviewed with patient/family, they understand/agree Subjective Date of service: 05/13/17 Principal diagnosis: PNA; COPD; HF Interval history: No events. Much improved today. Clearing mucous better. SOB and wheezing better. Off BIPAP back on [place]. Active Medications Acetaminophen (Tylenol) 650 mg PO Q4H PRN PRN Reason: Pain MILD(1-3)/Fever >100.5/SINGER Albuterol (Proventil) 2.5 mg IH Q4HRT PRN PRN Reason: Shortness Of Breath Albuterol/Ipratropium (Duoneb *Not For Prn Use*) 1 ampul IH Q6HRT [facility] Last Admin: 05/13/17 08:23 Dose: Not Given Arformoterol Tartrate (Brovana Nebu) 15 mcg IH Q12HRT [facility] Last Admin: 05/13/17 08:22 Dose: 15 mcg Aspirin (Halfprin Ec) 81 mg PO QDAY [facility] Last Admin: 05/13/17 10:40 Dose: 81 mg Bisacodyl (Dulcolax) 10 mg [place] QDAY PRN PRN Reason: Constipation unrelieved by MOM Budesonide (Pulmicort) 0.5 mg IH Q12HRT [facility] Last Admin: 05/13/17 08:22 Dose: 0.5 mg Enoxaparin Sodium (Lovenox) 40 mg SUB-Q QDAY [facility] Last Admin: 05/13/17 10:41 Dose: 40 mg Furosemide (Lasix) 20 mg IV 0600,1800 [facility] Last Admin: 05/13/17 05:48 Dose: 20 mg Gabapentin (Neurontin) 300 mg PO BID [facility] Last Admin: 05/13/17 10:41 Dose: 300 mg Guaifenesin (Mucinex Er) 600 mg PO BID [facility] Last Admin: 05/13/17 10:40 Dose: 600 mg Levofloxacin (Levaquin) 750 mg PO Q24HR [facility] Levothyroxine Sodium (Synthroid) 100 mcg PO DAILY@0600 [facility] Lisinopril (Zestril) 10 mg PO QDAY [facility] Last Admin: 05/13/17 10:42 Dose: 10 mg Lorazepam (Ativan) 0.25 mg IV Q4H PRN PRN Reason: Anxiety Last Admin: 05/12/17 22:45 Dose: 0.25 mg Methylprednisolone Sodium Succinate (Solu-Medrol) 60 mg IV Q8HR [facility] Morphine Sulfate (Morphine) 2 mg IV Q4H PRN PRN Reason: Pain, Moderate (4-6) Last Admin: 05/13/17 11:18 Dose: 2 mg Ondansetron HCl (Zofran) 4 mg IV Q8H PRN PRN Reason: N/V unrelieved by Epifanio Last Admin: 05/12/17 18:41 Dose: 4 mg Paroxetine HCl (Paxil) 40 mg PO DAILY [facility] Last Admin: 05/13/17 10:40 Dose: 40 mg Tamsulosin HCl (Flomax) 0.4 mg PO QDAY [facility] Last Admin: 05/13/17 10:41 Dose: 0.4 mg Objective Vital Signs - 12hr 05/13/17 05/13/17 05/13/17 03:01 03:15 03:55 Temperature 97.4 F L Pulse Rate 81 Pulse Rate [ 67 71 Bilateral Throughout] Pulse Rate [ Left Radial] Respiratory 20 Rate Respiratory 22 24 Rate [Bilateral Throughout] Blood Pressure 138/72 Blood Pressure [Right] O2 Sat by Pulse 96 Oximetry 05/13/17 05/13/17 05/13/17 07:21 08:21 10:00 Temperature 97.7 F 97.7 F Pulse Rate 94 H 94 H Pulse Rate [ Bilateral Throughout] Pulse Rate [ 94 H Left Radial] Respiratory 20 20 22 Rate Respiratory Rate [Bilateral Throughout] Blood Pressure 144/80 Blood Pressure 144/80 [Right] O2 Sat by Pulse 94 94 94 Oximetry 05/13/17 05/13/17 10:42 11:43 Temperature 97.6 F Pulse Rate 94 H 88 Pulse Rate [ Bilateral Throughout] Pulse Rate [ Left Radial] Respiratory 18 Rate Respiratory Rate [Bilateral Throughout] Blood Pressure 144/80 135/74 Blood Pressure [Right] O2 Sat by Pulse 97 Oximetry Constitutional: no acute distress, alert Eyes: non-icteric ENT: oropharynx moist Neck: supple Effort: normal Ascultation: Bilateral: clear Cardiovascular: regular rate and rhythm (no mrg) Gastrointestinal: normoactive bowel sounds, soft, non-tender, non-distended Integumentary: normal Extremities: no cyanosis, pink and warm, edema (1+ bilateral LE edema) Neurologic: normal mental status, non-focal exam, pupils equal and round, CN II- XII normal Psychiatric: mood appropriate, affect normal CBC and BMP: 05/13/17 04:37 05/13/17 04:37 ABG, PT/INR, D-dimer: ABG POC ABG pH 7.423 (7.35-7.45) 05/12/17 10:15 POC ABG pCO2 43.7 (35-45) 05/12/17 10:15 POC ABG pO2 73 (80-105) L 05/12/17 10:15 POC ABG HCO3 28.6 05/12/17 10:15 POC ABG Total CO2 30 05/12/17 10:15 POC ABG O2 Sat 95 05/12/17 10:15 PT/INR, D-dimer PT 14.5 Sec. (12.2-14.9) 05/12/17 06:45 INR 1.07 (0.87-1.13) 05/12/17 06:45 D-Dimer 515.21 ng/mlDDU (0-234) H 05/12/17 06:45 Abnormal lab findings: Abnormal Labs 05/12/17 05/12/17 05/12/17 06:23 06:23 06:45 RBC 3.06 L Hgb 9.2 L Hct 27.7 L RDW 17.8 H Lymph % (Auto) [place] % (Auto) 9.2 H Lymph # [place] # 0.9 H Seg Neutrophils % 75.8 H Seg Neutrophils # 7.8 H APTT 37.2 H D-Dimer POC ABG pO2 Sodium 136 L Potassium 5.1 H Chloride 96.1 L BUN Glucose 104 H NT-Pro-B Natriuret Pep 911.2 H 05/12/17 05/12/17 05/13/17 06:45 10:15 04:37 RBC 3.18 L Hgb 9.4 L Hct 28.9 L RDW 17.8 H Lymph % (Auto) 10.4 L [place] % (Auto) Lymph # 0.6 L [place] # Seg Neutrophils % 87.0 H Seg Neutrophils # APTT D-Dimer 515.21 H POC ABG pO2 73 L Sodium Potassium Chloride BUN Glucose NT-Pro-B Natriuret Pep 05/13/17 04:37 RBC Hgb Hct RDW Lymph % (Auto) [place] % (Auto) Lymph # [place] # Seg Neutrophils % Seg Neutrophils # APTT D-Dimer POC ABG pO2 Sodium Potassium Chloride 94.3 L BUN 26 H Glucose 134 H NT-Pro-B Natriuret Pep Chest x-ray: report reviewed, image reviewed
[2017-05-13] MEDS ORDERED: ROXICODONE PO PRN (15:37)
[2017-05-13] MEDS: ZOFRAN IV PRN ×2 (16:40→23:05)
[2017-05-14] MEDS: ATIVAN IV PRN (01:23)
[2017-05-14] MEDS: DUONEB *Not for PRN Use IH SCH ×3 (01:57→14:16)
[2017-05-14 06:02] LABS: Calcium 8.9 mg/dL (8.4-10.2); Chloride 94.4 mmol/L (98-107); Potassium 3.9 mmol/L (3.6-5.0)
[2017-05-14] MEDS: LASIX IV SCH (06:20)
[2017-05-14] MEDS: MORPHINE IV PRN ×2 (06:54→11:54)
[2017-05-14] MEDS: BROVANA NEBU IH SCH (07:41)
[2017-05-14] MEDS: PULMICORT IH SCH (07:41)
[2017-05-14] MEDS ORDERED: LEVAQUIN PO SCH (10:00)
[2017-05-14] MEDS: PAXIL PO SCH (10:26)
[2017-05-14] MEDS: FLOMAX PO SCH (10:26)
[2017-05-14] MEDS: NEURONTIN PO SCH (10:27)
[2017-05-14] MEDS: LOVENOX SUB-Q SCH (10:27)
[2017-05-14] MEDS: HALFPRIN EC PO SCH (10:27)
[2017-05-14] MEDS: MUCINEX ER PO SCH (10:27)
[2017-05-14] MEDS: ZESTRIL PO SCH (10:32)
[2017-05-14 10:33] VITALS: BP 118/62
--- NOTE | 2017-05-14 11:03 | Progress Note ---
Assessment and Plan Assessment: Acute on chronic respiratory failure - off BiPAP RLL PNA COPD exacerbation Acute diastolic heart failure - mild component Elevated DDimer - has also been elevated on prior admissions with chest CTA & V/ Q scan negative for PE; further eval per primary/pulmonary CAD, s/p CABG HTN DM PVD Anemia Plan: Currently stable cardiac status. D/c diuretics. D/c diuretics. Consider resuming home Toprol XL if/when okay per pulmonary. Assessment and plan reviewed with pt at bedside. The patient has been seen in conjunction with Dr. Za Blankenship who agrees with the assessment and plan of care. Subjective Date of service: 05/14/17 Principal diagnosis: PNA; COPD; HF Interval history: states he is feeling much better and feels he may be ready to go home Objective Last Vital Signs Temp 98.7 F 05/14/17 07:16 Pulse 86 05/14/17 10:32 Resp 18 05/14/17 08:08 BP 118/62 05/14/17 10:32 Pulse Ox 96 05/14/17 08:09 - Physical Examination HEENT: Positive: PERRL, Normocephaly, Mucus Membranes Moist Neck: Positive: neck supple, trachea midline Cardiac: Positive: Reg Rate and Rhythm, S1/S2 Lungs: Positive: Decreased Breath Sounds, Rhonchi Neuro: Positive: Grossly Intact Abdomen: Positive: Unremarkable, Soft, Active Bowel Sounds. Negative: Tender Skin: Positive: Clear. Negative: Rash, Wound Musculoskeletal: No Fluid Collection, No Pain, Normal Range of Motion Extremities: Absent: edema - Labs and Meds Comprehensive Metabolic Panel 05/14/17 Range/Units 04:26 Sodium 140 (137-145) mmol/L Potassium 3.9 (3.6-5.0) mmol/L Chloride 94.4 L (98-107) mmol/L Carbon Dioxide 28 (22-30) mmol/L BUN 36 H (9-20) mg/dL Creatinine 1.3 (0.8-1.5) mg/dL Glucose 164 H (75-100) mg/dL Calcium 8.9 (8.4-10.2) mg/dL - Imaging and Cardiology EKG: report reviewed, image reviewed Echo: pending, report reviewed (02/29/2016 revealed mild to moderate LVH, EF 50 - 55%, impaired relaxation, no pulmonary HTN) - EKG Sinus rhythms and dysrhythmias: sinus rhythm
--- NOTE | 2017-05-14 12:38 | Discharge Summary ---
Providers - Providers Date of Admission: 05/12/17 09:34 Attending physician: DAVID EDWARDS MD 05/12/17 12:08 Consult to Physician [CONS] Routine Consulting Provider: TRISHA RAHMAN Reason For Exam: COPD Place consult to:: pulmonary Notified:: office Phone number called:: [phone] Was contact made?: Yes If yes, spoke with:: goran Time called:: 12:10 Comment:: pt known to you 05/12/17 12:19 Consult to Physician [CONS] Routine Consulting Provider: MAUREEN LANE Reason For Exam: chf exa Place consult to:: yes Notified:: y Phone number called:: yes Primary care physician: CUSTOMER SERVICE TECHNICIAN Hospitalization Reason for admission: RESPIRATORY FAILURE Condition: Stable Hospital course: Patient is a 71-year-old male with past medical history significant for COPD, [place] status post CABG, CHF presented,who presents to the emergency department with complaining of shortness of breath. Until , patient was at her normal baseline state of health. Patient developed difficulty of breathing yesterday and he has had progressive worsening of shortness of breath. This morning while going to the bathroom, shortly thereafter, he felt like he could not catch his breath and got worried so his daughter friend brought him to the Emergency Department. He is on home oxygen 3L-4LNC. His camera machinist is Dr Rahman and his ground defence officer is through [facility]. Patient denies she has had no fevers, chills, or night sweats. No hx of recurrent pneumonia. He has no sick contact, TB exposure. on admission patient was seen by pulmonary was noted the patient has bronchiectasis and also tracheomalacia resulted in difficulty clearing her airways and possibly lead to patient's development of pneumonia. Patient was treated appropriately with oxygen coming down to 3 L which is what he uses at home. He was initially treated with BiPAP in the hospital. The family's request considering the hospice but will like to continue palliative care with the hospice company. Discharge diagnosis Acute on chronic respiratory failure with hypoxia RLL Pneumonia/ Bronchiectasis Tracheomalacia Acute on chronic diastolic congestive heart failure/pulmonary edema Acute COPD exacerbation Hypertensive urgency Elevated d-dimer Mild Hyperkalemia Disposition: DC-50 TO HOSPICE (HOME) Time spent for discharge: 35 mins Core Measure Documentation - Palliative Care Palliative Care/ Comfort Measures: Palliative Care/Comfort Measures - Core Measures Any of the following diagnoses?: none - VTE Discharge Requirements Deep Vein Thrombosis/Pulmonary Embolism Present on Admission: No Exam - Physical Exam Narrative exam: VITAL SIGNS: Reviewed. GENERAL: The patient appeared well nourished and normally developed. Vital signs as documented. HEAD: No signs of head trauma. EYES: Pupils are equal. Extraocular motions intact. EARS: Hearing grossly intact. MOUTH: Oropharynx is normal. NECK: No adenopathy, no JVD. CHEST: Chest with crackles breath sounds bilaterally. No wheezes, rales, or rhonchi. CARDIAC: Regular rate and rhythm. S1 and S2, without murmurs, gallops, or rubs. VASCULAR: No Edema. Peripheral pulses normal and equal in all extremities. ABDOMEN: Soft, without detectable tenderness. No sign of distention. No rebound or guarding, and no masses palpated. Bowel Sounds normal. MUSCULOSKELETAL: Good range of motion of all major joints. Extremities without clubbing, cyanosis or edema. NEUROLOGIC EXAM: Alert and oriented x 3. No focal sensory or strength deficits. Speech normal. Follows commands. PSYCHIATRIC: Mood normal. SKIN: No rash or lesions. - Constitutional Vitals: Temp Pulse Resp BP Pulse Ox 97.9 F 86 22 118/62 96 05/14/17 10:31 05/14/17 10:32 05/14/17 11:54 05/14/17 10:32 05/14/17 10:31 Plan Activity: advance as tolerated, fall precautions Diet: low salt Special Instructions: record daily BP diary, home oxygen via (nasal cannula @ 3 liters per minute) Follow up with: [facility] [Provider Group] - 7 Days MAUREEN LNAE MD [Staff Physician] - 7 Days TRISHA RAHMAN MD [Staff Physician] - 7 Days THAIS RICH MD [Primary Care Provider] - 3-5 Days Prescriptions: RX: Levofloxacin [Levaquin TAB] 750 mg PO Q24HR #5 tablet Metoprolol Succinate [Toprol Xl] 25 mg PO DAILY #30 tab.er.24h
--- NOTE | 2017-05-14 14:57 | Progress Note ---
Assessment and Plan Imp: 1. RLL CAP 2. Bronchiectasis with acute lower respiratory tract infection/exacerbation 3. Tracheobronchomalacia 4. Poor airway clearance 2/2 #'s 2 and 3 5. COPD exac. 6. A/C respiratory failure, hypoxia Rec: 1. Cont. Levaquin to complete 10 days 2. Can resume home prednisone dose at d/c 3. Duonebs 4. Pulmicort/Brovana 5. Echo report reviewed 6. BIPAP PRN 7. Chest PT with vest or manual -> take flutter valve home and use there; family to check w/ [facility] to see if they have a vest for airway clearance 8. Mucinex BID 9. Full code per family; better today; okay to d/c home pulm-castro Plan of care reviewed with patient/family, they understand/agree Subjective Date of service: 05/14/17 Principal diagnosis: PNA; COPD; HF Interval history: No events. Much improved today. Clearing mucous better. SOB and wheezing better. Off BIPAP back on [place]. Active Medications Acetaminophen (Tylenol) 650 mg PO Q4H PRN PRN Reason: Pain MILD(1-3)/Fever >100.5/SINGER Albuterol (Proventil) 2.5 mg IH Q4HRT PRN PRN Reason: Shortness Of Breath Albuterol/Ipratropium (Duoneb *Not For Prn Use*) 1 ampul IH Q6HRT REPLACED BY [facility] Last Admin: 05/14/17 14:16 Dose: 1 ampul Arformoterol Tartrate (Brovana Nebu) 15 mcg IH Q12HRT [facility]PL[facility]ED [facility] Last Admin: 05/14/17 07:41 Dose: 15 mcg Aspirin (Halfprin Ec) 81 mg PO QDAY [facility]PL[facility] Last Admin: 05/14/17 10:27 Dose: 81 mg Bisacodyl (Dulcolax) 10 mg [place] QDAY PRN PRN Reason: Constipation unrelieved by MOM Budesonide (Pulmicort) 0.5 mg IH Q12HRT [facility]PL[facility] Last Admin: 05/14/17 07:41 Dose: 0.5 mg Enoxaparin Sodium (Lovenox) 40 mg SUB-Q QDAY [facility] Last Admin: 05/14/17 10:27 Dose: 40 mg Gabapentin (Neurontin) 300 mg PO BID [facility] Last Admin: 05/14/17 10:27 Dose: 300 mg Guaifenesin (Mucinex Er) 600 mg PO BID [facility] Last Admin: 05/14/17 10:27 Dose: 600 mg Levofloxacin (Levaquin) 750 mg PO Q24HR [facility] Last Admin: 05/14/17 10:27 Dose: 750 mg Levothyroxine Sodium (Synthroid) 100 mcg PO DAILY@0600 [facility] Last Admin: 05/14/17 06:21 Dose: 100 mcg Lisinopril (Zestril) 10 mg PO QDAY [facility] Last Admin: 05/14/17 10:32 Dose: 10 mg Lorazepam (Ativan) 0.25 mg IV Q4H PRN PRN Reason: Anxiety Last Admin: 05/14/17 01:23 Dose: 0.25 mg Methylprednisolone Sodium Succinate (Solu-Medrol) 40 mg IV Q8HR [facility]PLACED [facility] Morphine Sulfate (Morphine) 2 mg IV Q4H PRN PRN Reason: Pain, Moderate (4-6) Last Admin: 05/14/17 11:54 Dose: 2 mg Ondansetron HCl (Zofran) 4 mg IV Q8H PRN PRN Reason: N/V unrelieved by Epifanio Last Admin: 05/13/17 23:05 Dose: 4 mg Oxycodone HCl (Roxicodone) 5 mg PO Q6H PRN PRN Reason: Pain, Moderate (4-6) Paroxetine HCl (Paxil) 40 mg PO DAILY [facility]PL[facility]ED BY [facility] Last Admin: 05/14/17 10:26 Dose: 40 mg Tamsulosin HCl (Flomax) 0.4 mg PO QDAY REPLACED BY [facility] Last Admin: 05/14/17 10:26 Dose: 0.4 mg Objective Vital Signs - 12hr 05/14/17 05/14/17 05/14/17 05:00 07:16 07:24 Temperature 98.3 F 98.7 F Pulse Rate 74 79 Pulse Rate [ Bilateral Throughout] Respiratory 20 28 H 22 Rate Respiratory Rate [Bilateral Throughout] Blood Pressure 112/58 Blood Pressure 128/68 [Right] O2 Sat by Pulse 96 96 Oximetry 05/14/17 05/14/17 05/14/17 07:55 08:08 08:09 Temperature Pulse Rate Pulse Rate [ 79 80 Bilateral Throughout] Respiratory Rate Respiratory 18 18 Rate [Bilateral Throughout] Blood Pressure Blood Pressure [Right] O2 Sat by Pulse 96 Oximetry 05/14/17 05/14/17 05/14/17 10:31 10:32 11:54 Temperature 97.9 F Pulse Rate 91 H 86 Pulse Rate [ Bilateral Throughout] Respiratory 24 22 Rate Respiratory Rate [Bilateral Throughout] Blood Pressure 118/62 118/62 Blood Pressure [Right] O2 Sat by Pulse 96 Oximetry Constitutional: no acute distress, alert Eyes: non-icteric ENT: oropharynx moist Neck: supple Effort: normal Ascultation: Right: diminished breath sounds (mildly decreased R base), Bilateral: clear Cardiovascular: regular rate and rhythm (no mrg) Gastrointestinal: normoactive bowel sounds, soft, non-tender, non-distended Integumentary: normal Extremities: no cyanosis, pink and warm, edema (1+ bilateral LE edema) Neurologic: normal mental status, non-focal exam, pupils equal and round, CN II- XII normal Psychiatric: mood appropriate, affect normal CBC and BMP: 05/13/17 04:37 05/14/17 04:26 ABG, PT/INR, D-dimer: ABG POC ABG pH 7.423 (7.35-7.45) 05/12/17 10:15 POC ABG pCO2 43.7 (35-45) 05/12/17 10:15 POC ABG pO2 73 (80-105) L 05/12/17 10:15 POC ABG HCO3 28.6 05/12/17 10:15 POC ABG Total CO2 30 05/12/17 10:15 POC ABG O2 Sat 95 05/12/17 10:15 PT/INR, D-dimer PT 14.5 Sec. (12.2-14.9) 05/12/17 06:45 INR 1.07 (0.87-1.13) 05/12/17 06:45 D-Dimer 515.21 ng/mlDDU (0-234) H 05/12/17 06:45 Abnormal lab findings: Abnormal Labs 05/12/17 05/12/17 05/12/17 06:23 06:23 06:45 RBC 3.06 L Hgb 9.2 L Hct 27.7 L RDW 17.8 H Lymph % (Auto) [place] % (Auto) 9.2 H Lymph # [place] # 0.9 H Seg Neutrophils % 75.8 H Seg Neutrophils # 7.8 H APTT 37.2 H D-Dimer POC ABG pO2 Sodium 136 L Potassium 5.1 H Chloride 96.1 L BUN Glucose 104 H NT-Pro-B Natriuret Pep 911.2 H 05/12/17 05/12/17 05/13/17 06:45 10:15 04:37 RBC 3.18 L Hgb 9.4 L Hct 28.9 L RDW 17.8 H Lymph % (Auto) 10.4 L [place] % (Auto) Lymph # 0.6 L [place] # Seg Neutrophils % 87.0 H Seg Neutrophils # APTT D-Dimer 515.21 H POC ABG pO2 73 L Sodium Potassium Chloride BUN Glucose NT-Pro-B Natriuret Pep 05/13/17 05/14/17 04:37 04:26 RBC Hgb Hct RDW Lymph % (Auto) [place] % (Auto) Lymph # [place] # Seg Neutrophils % Seg Neutrophils # APTT D-Dimer POC ABG pO2 Sodium Potassium Chloride 94.3 L 94.4 L BUN 26 H 36 H Glucose 134 H 164 H NT-Pro-B Natriuret Pep Chest x-ray: report reviewed
--- NOTE | 2017-05-20 15:13 | Query- Pneumonia Documented ---
Dear ____Ro Date:___05/20/17 [place] Slabs/CDS: Brennon / Thad Phone#:___[phone] Exercise your independent professional judgment when responding to query. Questions asked do not imply a particular answer is desired or expected. We greatly appreciate your clarification on this issue. Clinical Documentation States: 72 year old male was admitted on 05/12/17 The discharge summary (Dr. Starr) states " Reason for admission: RESPIRATORY FAILURE Patient is a 71-year-old male with past medical history significant for COPD, [place] status post CABG, CHF presented,who presents to the emergency department with complaining of shortness of breath Discharge diagnosis Acute on chronic respiratory failure with hypoxia RLL Pneumonia/ Bronchiectasis " The pulmonology progress note (Dr. Moore 05/13/17) states " Rec: 1. Cont. Levaquin IV; sputum grew out Pseudomonas 10/29 but it was sensitive to Levaquin; complete ~ 10 days " Clinical Findings Show: Antibiotics: Azithromycin, Levofloxacin, Sulfamethoxazole/Trimethoprim Please further specify known or suspected Etiology: [x ] Aspiration Pneumonia [ ] Gram Negative Pneumonia [ ] Gram Positive Pneumonia [ ] Pseudomonas Pneumonia [ ] MRSA - related Pneumonia [ ] Viral Pneumonia [ ] Candidal Pneumonia [ ] Other: [ ] Unable to determine Present on Admission: [ ] Yes (Y) [ ] Clinically undeterminable (W) [ ] No (N) Please also document response in your Progress Notes and/or Discharge Summary and indicate if the condition was present on admission. MTDD
== END 2017-05-14 16:52 | disposition home or self-care (01) | DRG 177 ==
LOC: ED 05:55 → 4A 09:34
PROVIDERS: ADMIT Internal Medicine; ATTEND Internal Medicine
PROC: 4A033R1 Measurement of Arterial Saturation, Peripheral, Percutaneous Approach (ICD-10-PCS; principal; 2017-05-12)
PROC: 5A09357 Assistance with Respiratory Ventilation, Less than 24 Consecutive Hours, Continuous Positive Airway Pressure (ICD-10-PCS; 2017-05-12)
PROC: 3E0234Z Introduction of Serum, Toxoid and Vaccine into Muscle, Percutaneous Approach (ICD-10-PCS; 2017-05-13)
PROC: 5A09357 Assistance with Respiratory Ventilation, Less than 24 Consecutive Hours, Continuous Positive Airway Pressure (ICD-10-PCS; 2017-05-13)
DX: J69.0 Pneumonitis due to inhalation of food and vomit (principal); J96.21 Acute and chronic respiratory failure with hypoxia; I50.33 Acute on chronic diastolic (congestive) heart failure; J44.1 Chronic obstructive pulmonary disease with (acute) exacerbation; J44.0 Chronic obstructive pulmonary disease with (acute) lower respiratory infection; I11.0 Hypertensive heart disease with heart failure; Z88.0 Allergy status to penicillin; Z91.011 Allergy to milk products; Z23 Encounter for immunization; Z95.1 Presence of aortocoronary bypass graft; I25.2 Old myocardial infarction; I25.10 Atherosclerotic heart disease of native coronary artery without angina pectoris; Z87.891 Personal history of nicotine dependence; Z79.82 Long term (current) use of aspirin; Z79.899 Other long term (current) drug therapy; Z82.49 Family history of ischemic heart disease and other diseases of the circulatory system; E87.5 Hyperkalemia; I73.9 Peripheral vascular disease, unspecified; D64.9 Anemia, unspecified; G89.4 Chronic pain syndrome; J39.8 Other specified diseases of upper respiratory tract; I16.0 Hypertensive urgency
CPT/HCPCS: 31720; 36415; 36600; 71010; 78582; 80048; 82803; 83880; 84484; 85025; 85379; 85610; 85730; 90686; 93005; 93010; 93306; 94640; 94667; 94760; 96374; A9540; A9558; J1650; J1940; J1956; J2060; J2270; J2405; J2930